=== PATIENT | male | born 1960 | race Caucasian/White ===

== ENCOUNTER → 2020-01-23 10:18 | Outpatient (CLI) | payer OTHER, SELFPAY ==
[2019-12-19 13:56] VITALS: BMI 41.3
[2020-01-23 10:30] LABS: Mucous, Urine 0 SEEN /hpf (<or=2+); Red Blood Cells-Urine 0 SEEN /hpf (0-5); Squamous Epithelial Cells - UA 0 SEEN /hpf (0-5); White Blood Cells 0 SEEN /hpf (0-5)
--- NOTE | 2020-01-23 10:39 | EKG12_ITS ---
Test Reason : ROUTINE Blood Pressure : / mmHG Vent. Rate : 076 BPM Atrial Rate : 076 BPM P-R Int : 158 ms QRS Dur : 096 ms QT Int : 384 ms P-R-T Axes : 061 057 051 degrees QTc Int : 432 ms Normal sinus rhythm Normal ECG Confirmed by AMANDEEP SHIPMAN, MIRI ([id number]), market editor MADHAV VALDOVINOS ([id number]) on 01/24/2020 8:58:38 AM Referred By: Madan Estevez Confirmed By:MIRI BERNSTEIN MD
[2020-01-23 10:49] LABS: Glucose, Dipstick Normal (Normal); Ketone-Dipstick Negative (Negative); Leukocyte Esterase-Dipstick Negative /ul (Negative); Nitrite-Dipstick Negative (Negative); Occult Blood-Urine Negative /ul (Negative); Protein-Dipstick Negative (Negative); Specific Gravity, Urine 1.015 (1.002-1.030); Urine Bilirubin Dipstick Negative (Negative); Urine Urobilinogen Normal (Normal)
[2020-01-23 10:50] LABS: Absolute Neutrophil Count 5.9 X10^3/uL (2.0-7.7); Basophil# 0.03 X10^3/uL; Basophil% 0.3 % (0-1); Color, Urine Straw (Yellow); Eosinophil# 0.28 X10^3/uL; Eosinophils% 2.7 % (0-5); Hematocrit 49.4 % (40-54); Hemoglobin 16.1 g/dL (13.0-16.5); Lymphocyte % 34.4 % (19-41); Mean Corp Hgb Conc 32.6 g/dL (32-36); Mean Corpuscular Hgb 30.9 pg (27.0-32.0); Mean Corpuscular Volume 94.8 fL (80-94); Mean Platelet Vol. 11.3 fl (6.2-12.0); Monocyte# 0.58 X10^3/uL; Monocyte% 5.5 % (0-10); NRBC Flagged by Analyzer 0 % (0-5); Neutrophil # 5.94 X10^3/uL (2.7-7.7); Neutrophil % 56.8 % (47-70); Platelet Count 287 K/mm3 (150-450); RBC Distribution Width CV 11.9 % (11.6-14.6); RBC Distribution Width SD 41.1 fl (35.1-43.9); Red Blood Count 5.21 M/mm3 (4.6-6.2); White Blood Count 10.5 K/mm3 (4.4-11.0)
[2020-01-23 10:51] LABS: Urine Clarity Clear (Clear)
[2020-01-23 10:59] LABS: Bacteria RARE /hpf (None Seen)
[2020-01-23 11:36] LABS: ALB/GLOB Ratio 0.8 RATIO (0.9-2.4); AST(SGOT) 21 U/L (15-37); Alanine Aminotransfer ALT/SGPT 35 U/L (16-61); Albumin, Serum 3.5 g/dL (3.2-5.0); Alkaline Phosphatase 104 U/L (45-117); Anion Gap 3 (5-15); BUN 22 mg/dL (7-18); Calcium,Total 9.5 mg/dL (8.5-10.1); Chloride 103 mmol/L (98-107); Cholesterol 174 mg/dL (200); Creatinine, Serum 1.05 mg/dL (0.70-1.30); EST Glomerular Filtration Rate 77 mL/min (>60); Est Glom Filt Rate - Afr Amer 93 mL/min (>60); Globulin 4.3 g/dL (2.2-4.2); Glucose 92 mg/dL (74-106); High Density Lipoprotein 30 mg/dL; PSA,Total - Annual Screen 0.13 ng/mL (0.00-4.00); Potassium 4.4 mmol/L (3.5-5.1); Protein, Total 7.8 g/dL (6.4-8.2); Sodium Level 134 mmol/L (136-145); Thyroid Stim Hormone (TSH) 0.99 uIU/mL (0.358-3.74); Triglycerides 128 mg/dL; Very Low Density Lipoprotein 26 mg/dL (5-40)
[2020-01-23 11:55] LABS: Hemoglobin A1c 5.3 % (3.8-5.6)
== END ==
PROVIDERS: PCP Nurse Practitioner Family; Referring Provider Nurse Practitioner Family; Visit Provider Nurse Practitioner Family
DX: Z00.00 Encounter for general adult medical examination without abnormal findings (principal); I10 Essential (primary) hypertension
CPT/HCPCS: 36415; 80053; 80061; 81001; 83036; 84153; 84443; 85025; 93005; G0103

== ENCOUNTER → 2020-02-08 08:03 | Outpatient (CLI) | payer OTHER, SELFPAY ==
[2019-12-19 13:56] VITALS: BMI 41.3
--- NOTE | 2020-02-08 14:48 | PFTCOMP_ITS ---
COMPLETE PULMONARY FUNCTION TEST INTERPRETATION Brief HPI: Patient is a 59 year old male, currently under the care of Dr. Meraz, who presents to [facility] for complete pulmonary function tests secondary to diagnosis of dyspnea. Respiratory therapist reports good effort and reproducible results. Interpretation: Forced expiration spirometry shows a mild large airways obstructive ventilatory defect with an FEV1 of 72% predicted. There is no significant bronchodilator response by strict ATS criteria. Spirograms are of good quality and plateau slowly, indicating slowly emptying areas of the lungs. The respiratory flow volume loop shows decreased expiratory flow rates at all lung volumes consistent with airway obstruction. Lung volumes by body plethysmography show a decreased total lung capacity at 5.99 L, 84% predicted. All other lung volumes are reduced symmetrically. Diffusion capacity by carbon monoxide is normal at 82% predicted. The airway resistance is slightly elevated. No previous pulmonary function tests were available for review. Impression: Irreversible mild mixed ventilatory defect with preserved diffusion capacity.
== END ==
PROVIDERS: PCP Internal Medicine; Referring Provider Internal Medicine; Visit Provider Internal Medicine
DX: R06.02 Shortness of breath (principal)
CPT/HCPCS: 94060; 94726; 94729

== ENCOUNTER → 2020-06-09 14:52 | Outpatient (CLI) | payer OTHER, SELFPAY ==
[2019-12-19 13:56] VITALS: BMI 41.3
[2020-06-09 16:49] LABS: ALB/GLOB Ratio 0.9 RATIO (0.9-2.4); AST(SGOT) 16 U/L (15-37); Alanine Aminotransfer ALT/SGPT 32 U/L (16-61); Albumin, Serum 3.7 g/dL (3.2-5.0); Alkaline Phosphatase 98 U/L (45-117); Anion Gap 4 (5-15); BUN 25 mg/dL (7-18); BUN/Creat Ratio 22.7 RATIO (10-20); Calcium,Total 9.7 mg/dL (8.5-10.1); Chloride 105 mmol/L (98-107); EST Glomerular Filtration Rate 73 mL/min (>60); Est Glom Filt Rate - Afr Amer 88 mL/min (>60); Globulin 4.1 g/dL (2.2-4.2); Glucose 90 mg/dL (74-106); Protein, Total 7.8 g/dL (6.4-8.2); Sodium Level 138 mmol/L (136-145)
== END ==
PROVIDERS: PCP Internal Medicine; Visit Provider Internal Medicine
DX: I10 Essential (primary) hypertension (principal)
CPT/HCPCS: 36415; 80053

== ENCOUNTER → 2020-10-07 13:54 | Outpatient (CLI) | payer OTHER, SELFPAY ==
[2020-06-09 14:54] VITALS: BMI 41.3
[2020-10-07 13:34] VITALS: BMI 42.1
--- NOTE | 2020-10-07 13:55 | CT_ITS ---
STUDY: LOW DOSE CT LUNG CANCER SCREENING REASON FOR EXAM: Male, 60 years old. Lung cancer screening -- 84 pack year history; current smoker; asymptomatic RADIATION DOSAGE (If Supplied By Facility): CTDIvol = ( 4.02 ) mGy, DLP = ( 140.94 ) mGycm TECHNIQUE: No contrast was administered. Low dose technique was utilized (average mAS-38 and kVp 120). 1.25 mm axial source images with a slice interval of 1.25-mm were reconstructed in lung windows. 2.5 mm axial source images with a slice interval of 2.5-mm were reconstructed in lung windows. 5.0 mm axial source images with a slice interval of 5.0-mm were reconstructed in soft tissue windows. Nodule measured using lung windows on PACS and/or independent workstation with automated measurement of minimum and maximum diameter. Nodule measurement reported as average diameter rounded to the nearest whole number. Growth is defined as an increase ins size of greater than 1.5 mm. COMPARISON: None. NODULES: No suspicious nodules are seen. Emphysema: Ill-defined area of groundglass appearance in the posterior aspect of the lingular segment of the left upper lobe measuring 2.7 cm x 1.1 cm. This abuts the posterior aspect of the major fissure and most likely represents a focal liver scarring. This also evidence of a focal scar in the anterior aspect of the right middle lobe as seen on axial image #183. Hyperinflation. Endobronchial lesion: None Aorta: Atherosclerotic plaque formation of the aortic arch. Coronary arteries: Coronary artery calcification. Heart: Unremarkable Pulmonary artery: Unremarkable Mediastinal nodes: Small benign-appearing mediastinal lymph nodes. Other chest and abdominal findings: CT/Low Dose CT Lung Screening IMPRESSION: Lung-RADS category 2 - Continue annual screening with LDCT in 12 months. IMPORTANT NOTES FOR USE: ACR Lung-RADS Version 1.1 Assessment Categories Release Date: 2018 Category: Coded 0-4 bases on nodule(s) with highest degree of suspicion. Negative screen is defined as categories 1 and 2; a positive screen is defined as categories 3 and 4. Category 3 and 4A nodules that are unchanged on interval CT should be coded as category 2, and individuals returned to screening in 12 months. Category 4X: Category 3 or 4 nodules with additional imaging findings that increase the suspicion of lung cancer, such as spiculation, GGN that doubles in size in 1 year, enlarged lymph notes, etc. Category Modifiers: S (significant finding unrelated to lung cancer) Electronically Signed: Son Valadez MD at 14:33 EDT , Service support ,
== END ==
PROVIDERS: PCP Internal Medicine; Referring Provider Nurse Practitioner Family; Visit Provider Nurse Practitioner Family
DX: F17.200 Nicotine dependence, unspecified, uncomplicated (principal); Z12.2 Encounter for screening for malignant neoplasm of respiratory organs
CPT/HCPCS: 71271

== ENCOUNTER 2020-12-04 00:55 | Emergency (ER) | payer OTHER, SELFPAY ==
[2020-12-04 00:56] VITALS: BP 151/76; PULSE 77; RESP 22; TEMP 36; O2SAT 95; BMI 45.2
[2020-12-04 01:00] VITALS: BP 136/74; PULSE 73; RESP 22; TEMP 36; O2SAT 95
--- NOTE | 2020-12-04 01:40 | RAD_ITS ---
STUDY: X-RAY CHEST REASON FOR EXAM: Male, 60 years old. Cough TECHNIQUE: Portable, upright, AP chest radiograph COMPARISON: 01/03/2014 FINDINGS: Bilateral lower lung patchy opacities. There is no demonstrated pleural abnormality. Normal size heart. Normal mediastinum and azra. Normal visualized pulmonary arteries. Normal visualized aortic arch and descending thoracic aorta. Normal visualized thoracic spine. Normal visualized ribs, clavicles, and shoulders. There is no demonstrated abnormality of the visualized soft tissue structures of the upper abdomen. RAD/Chest 1 View (Portable) IMPRESSION: Bilateral lower lung infiltrates. Electronically Signed: Nestor Auguste MD at 2:07 EDT Tel , Service support ,
--- NOTE | 2020-12-04 01:41 | EKG12_ITS ---
Test Reason : SOB Blood Pressure : / mmHG Vent. Rate : 070 BPM Atrial Rate : 070 BPM P-R Int : 140 ms QRS Dur : 098 ms QT Int : 418 ms P-R-T Axes : 017 048 048 degrees QTc Int : 451 ms Normal sinus rhythm Normal ECG Confirmed by AMANDEEP SHIPMAN, MIRI ([id number]), metal tile setter MADHAV VALDOVINOS ([id number]) on 12/08/2020 1:08:03 PM Referred By: CLAUDIA Confirmed By:MIRI BERNSTEIN MD
--- NOTE | 2020-12-04 01:42 | ED.VIS.DYS ---
HPI History of Present Illness Chief Complaint: Shortness of Breath Narrative Narrative: 60-year-old male presenting with shortness of breath. Patient states has been short of breath for about 4 days. Patient just recently traveled from [place]. He is unsure if he was exposed to somebody who was ill along the way. Patient also states that somebody at work was sent home due to illness which may have been an exposure for him. He states he has a painful cough. He denies fever, chills, myalgias, change in taste or smell. Patient is a smoker and states he just thought it was bronchitis. He has not vaccinated for COVID-19 and has not had COVID-19 to date. [facility] Medical History COPD (chronic obstructive pulmonary disease) Encounter for screening for malignant neoplasm of lung in current smoker with 30 pack year history or greater History of back injury Hypertension Routine adult health maintenance Tobacco abuse Home Medications naproxen sodium 220 mg tablet 220 mg PO BID PRN 12/19/19 [History Last Taken Unknown] albuterol sulfate 90 mcg/actuation aerosol inhaler 2 puff INHALATION Q6H PRN #18 g 03/19/20 [Rx Last Taken Unknown] lisinopril 20 mg-hydrochlorothiazide 25 mg tablet 1 tab PO DAILY #90 tab 07/14/20 [Rx Last Taken Unknown] prednisone 50 mg PO DAILY 5 Days #25 tab 12/04/20 [Rx Last Taken Unknown] Allergy/AdvReac Type Severity Reaction Status Date / Time No Known Allergies Allergy Verified 10/07/20 13:35 Family History Brother Asthma Hypertension Mother Arthritis Cancer Social History Smoking Status: Current every day smoker tobacco type: cigarettes alcohol intake: current alcohol intake frequency: a few times a month Alcohol type: beer substance use type: does not use what type of physical activity do you participate in: none ROS ROS ED Constitutional Constitutional ED: Denies chills or fever(s) Eyes Eyes: Denies blurry vision or diplopia ENT ENT ED: Denies rhinorrhea or sore throat Cardiovascular Cardiovascular: Reports chest pain; Denies palpitations or racing heartbeat Respiratory/Chest Respiratory/Chest: Reports cough and dyspnea Gastrointestinal Gastrointestinal: Denies abdominal pain, nausea or vomiting Genitourinary Genitourinary ED: Denies dysuria or hematuria Musculoskeletal Musculoskeletal: Denies arthralgias, back pain, myalgias or neck pain Integumentary Denies Abrasions or rash Neurologic Neurologic: Denies headache(s) or paresthesias Psychiatric Psychiatric: Denies anxiety or depression EXAM Physical Exam Const Vital Signs: 12/04/20 00:56 12/04/20 01:00 12/04/20 02:03 Temperature 96.8 F L 96.8 F L Temperature Source Temporal Temporal Pulse Rate 77 73 70 Respiratory Rate 22 H 22 H 17 Respiratory Effort Short of Breath Respiratory Pattern Tachypnea Blood Pressure 151/76 H 136/74 H Blood Pressure Mean 101 94 Pulse Ox 95 95 Oxygen Delivery Method Room Air Room Air 12/04/20 02:29 12/04/20 03:27 12/04/20 04:47 Temperature Temperature Source Pulse Rate 77 75 63 Respiratory Rate 24 H 18 18 Respiratory Effort Respiratory Pattern Blood Pressure 146/68 H 160/87 H Blood Pressure Mean 94 111 Pulse Ox 90 93 Oxygen Delivery Method Room Air Room Air Positive well nourished General Appearance ED: NAD; Negative for pallor HEENT Reports moist mucous membranes atraumatic Eyes PERRL and EOMs intact bilaterally Resp Resp Narrative: Tachypneic with wheezing throughout all lung villagomez. No accessory muscle use. Patient speaking in full sentences. Cardio regular rate and regular rhythm Neuro oriented x3 and CN's II-XII intact bilaterally Sensorium / Orientation: alert Psych mental status grossly normal Thought Process: normal thought process Skin General Skin Exam: Negative for jaundice or pallor Lesions: no lesions Rashes: no rashes MDM MDM MDM Narrative Medical decision making narrative: Patient presenting with painful cough and shortness of breath. He is audibly wheezing on examination. Oxygen saturations were noted to be dropping to about 90. This is on room air. Patient was given breathing treatments and Solu-Medrol. I did test him for COVID-19 and this was negative. EKG on my interpretation shows a normal sinus rhythm with a ventricular rate of 70 bpm without sign of ischemic change. Chest x-ray on my interpretation shows no acute cardiopulmonary process however the radiologist believes there is bibasilar infiltrates. Blood work shows no leukocytosis, hemoglobin hematocrit are stable. Platelets are normal. D-dimer was elevated at 0.69. Troponin is 7. Procalcitonin is negative. Renal function is normal. Potassium slightly low at 3.4. Since his D-dimer was elevated I did obtain a CTA of the chest which shows no acute cardiopulmonary process. Patient was given a second breathing treatment. He will be ambulated on pulse ox to see if his oxygen dropped with ambulation. He currently feels improved after treatments. Patient was ambulated in the hallway and was able to walk briskly up and down the hallway and was asymptomatic. Patient's lowest pulse ox was 92. As soon as he as he sat down his pulse ox was 95%. Patient feels well enough to be discharged home. Patient will be sent home with prednisone burst. He already has albuterol at home. He is counseled to do this every 4-6 hours as needed. He was counseled not to smoke cigarettes and encouraged to quit smoking. Patient will follow up with his primary care provider or return for any new or worsening symptoms. Impression: 1. COPD exacerbation Lab Data Attestation: I reviewed the patient's lab results. Labs: Laboratory Results - last 24 hr 12/04/20 12/04/20 12/04/20 01:58 01:58 01:58 WBC 8.0 RBC 4.60 Hgb 14.7 Hct 43.8 MCV 95.2 H MCH 32.0 MCHC 33.6 RDW Std Deviation 41.3 RDW Coeff of Jerson 11.9 Plt Count 283 MPV 10.5 Immature Gran % (Auto) 0.400 Neut % (Auto) 70.5 H Lymph % (Auto) 21.5 [place] % (Auto) 7.2 Eos % (Auto) 0.1 Baso % (Auto) 0.3 Absolute Neuts (auto) 5.6 Absolute Lymphs (auto) 1.71 Nucleated RBC % 0 D-Dimer Quant (PE/DVT) 0.69 H* Sodium Potassium Chloride Carbon Dioxide Anion Gap BUN Creatinine Estim Creat Clear Calc Est GFR (MDRD) Af Amer Est GFR (MDRD) Non-Af BUN/Creatinine Ratio Glucose Calcium Total Bilirubin AST ALT Alkaline Phosphatase Troponin I High Sens 7 Total Protein Albumin Globulin Albumin/Globulin Ratio Procalcitonin 12/04/20 12/04/20 02:21 02:21 WBC RBC Hgb Hct MCV MCH MCHC RDW Std Deviation RDW Coeff of Jerson Plt Count MPV Immature Gran % (Auto) Neut % (Auto) Lymph % (Auto) [place] % (Auto) Eos % (Auto) Baso % (Auto) Absolute Neuts (auto) Absolute Lymphs (auto) Nucleated RBC % D-Dimer Quant (PE/DVT) Sodium 136 Potassium 3.4 L Chloride 103 Carbon Dioxide 27.0 Anion Gap 6 BUN 16 Creatinine 1.10 Estim Creat Clear Calc 79.36 Est GFR (MDRD) Af Amer 88 Est GFR (MDRD) Non-Af 73 BUN/Creatinine Ratio 14.5 Glucose 109 H Calcium 9.4 Total Bilirubin 0.40 AST 23 ALT 36 Alkaline Phosphatase 96 Troponin I High Sens Total Protein 8.0 Albumin 3.5 Globulin 4.5 H Albumin/Globulin Ratio 0.8 L Procalcitonin 0.05 Radiography Diagnostic Testing: Radiology Impression Chest X-Ray 12/04/20 01:40 IMPRESSION: Bilateral lower lung infiltrates. Electronically Signed: Nestor Auguste MD at 2:07 EDT Tel , Service support , Chest CTA 12/04/20 02:43 IMPRESSION: Normal CTA chest examination, without a demonstrated pulmonary embolism or arterial dissection. Electronically Signed: Nestor Auguste MD at 3:52 EDT Tel , Service support , Discharge Plan Triage Chief Complaint: Shortness of Breath ED Provider: Deshawn Kauffman Dx/Rx/DC Orders Instructions: ED COPD Flare Prescriptions: New prednisone 10 mg tablet 50 mg PO DAILY 5 Days Qty: 25 RF: 0 No Action naproxen sodium [Aleve] 220 mg tablet 220 mg PO BID PRN (Reason: Pain) RF: 0 albuterol sulfate 90 mcg/actuation HFA aerosol inhaler 2 puff INHALATION Q6H PRN (Reason: shortness of breath or wheezing) Qty: 18 RF: 2 lisinopril-hydrochlorothiazide 20-25 mg tablet 1 tab PO DAILY Qty: 90 RF: 3 Primary Care Provider: Leonidas Meraz Referrals: Leonidas Meraz MD [Primary Care Provider] - Disposition Disposition: Home, Self Care
[2020-12-04] MEDS: Albuterol 2.5 MG/3 ML VIAL.NEB. INHALATION ×2 (01:57→03:26)
[2020-12-04] MEDS: Ipratropium/Albuterol Sulfate 3 ML AMPUL.NEB INHALATION (01:57)
[2020-12-04] MEDS: MethylPREDNISolone 125 MG/2 ML Vial IV (02:02)
[2020-12-04 02:03] VITALS: PULSE 70; RESP 17
[2020-12-04 02:03] LABS: Absolute Lymphocyte Count 1.71 X10^3/uL (0.83-4.51); Absolute Neutrophil Count 5.6 X10^3/uL (2.0-7.7); Basophil# 0.02 X10^3/uL; Basophil% 0.3 % (0-1); Eosinophil# 0.01 X10^3/uL; Eosinophils% 0.1 % (0-5); Hematocrit 43.8 % (40-54); Hemoglobin 14.7 g/dL (13.0-16.5); Lymphocyte # 1.71 X10^3/ul (0.83-4.51); Lymphocyte % 21.5 % (19-41); Mean Corp Hgb Conc 33.6 g/dL (32-36); Mean Corpuscular Volume 95.2 fL (80-94); Mean Platelet Vol. 10.5 fl (6.2-12.0); Monocyte# 0.57 X10^3/uL; Monocyte% 7.2 % (0-10); NRBC Flagged by Analyzer 0 % (0-5); Neutrophil # 5.63 X10^3/uL (2.7-7.7); Neutrophil % 70.5 % (47-70); Platelet Count 283 K/mm3 (150-450); RBC Distribution Width CV 11.9 % (11.6-14.6); RBC Distribution Width SD 41.3 fl (35.1-43.9)
[2020-12-04 02:27] LABS: Troponin-I HS 7 pg/mL (3.0-78.0)
[2020-12-04 02:28] LABS: D-Dimer Quantitative (DVT/PE) 0.69 FEU/ug/m (0.27-0.49)
[2020-12-04 02:29] VITALS: BP 146/68; PULSE 77; RESP 24; O2SAT 90
--- NOTE | 2020-12-04 02:43 | CT_ITS ---
STUDY: CTA CHEST REASON FOR EXAM: Male, 60 years old. Dyspnea RADIATION DOSAGE (If Supplied By Facility): CTDIvol = ( 22.17 ) mGy, DLP = ( 560.83 ) mGycm TECHNIQUE: The examination was performed with the intravenous administration of IV 100mL Isovue-370. Post-processing of the angiographic images was performed, with multiplanar reformation and 3D reconstruction. Individualized dose optimization techniques were used for this CT. COMPARISON: None. FINDINGS: Normal enhancement of the main pulmonary artery and right and left pulmonary arteries. Normal enhancement of the bilateral peripheral pulmonary arteries. There is no demonstrated pulmonary embolism. Normal thoracic aorta and visualized great vessels. There is no demonstrated aortic dissection. Normal heart and pericardium. Normal mediastinum. Normal hilar regions. Normal visualized trachea and bronchi. The lungs are well expanded. Normal pulmonary parenchyma. Normal pleura. Normal chest wall structures. There are degenerative changes of thoracic spine. Normal visualized upper abdomen. CT/CTA Chest W/WO Contrast IMPRESSION: Normal CTA chest examination, without a demonstrated pulmonary embolism or arterial dissection. Electronically Signed: Nestor Auguste MD at 3:52 EDT Tel , Service support ,
[2020-12-04 02:52] LABS: ALB/GLOB Ratio 0.8 RATIO (0.9-2.4); AST(SGOT) 23 U/L (15-37); Alanine Aminotransfer ALT/SGPT 36 U/L (16-61); Albumin, Serum 3.5 g/dL (3.2-5.0); Alkaline Phosphatase 96 U/L (45-117); Anion Gap 6 (5-15); BUN 16 mg/dL (7-18); BUN/Creat Ratio 14.5 RATIO (10-20); Calcium,Total 9.4 mg/dL (8.5-10.1); Chloride 103 mmol/L (98-107); EST Glomerular Filtration Rate 73 mL/min (>60); Est Glom Filt Rate - Afr Amer 88 mL/min (>60); Estimated Creatinine Clearance 79.36 ml/min; Globulin 4.5 g/dL (2.2-4.2); Glucose 109 mg/dL (74-106); Potassium 3.4 mmol/L (3.5-5.1); Sodium Level 136 mmol/L (136-145)
[2020-12-04 02:59] LABS: Procalcitonin 0.05 ng/mL (0.00-0.09)
[2020-12-04 03:27] VITALS: PULSE 75; RESP 18
[2020-12-04 04:47] VITALS: BP 160/87; PULSE 63; RESP 18; O2SAT 93; O2SAT 94
== END 2020-12-04 04:53 | disposition home or self-care (01) ==
PROVIDERS: Emergency Provider Student in an Organized Health Care Education/Training Program; PCP Internal Medicine
DX: J44.1 Chronic obstructive pulmonary disease with (acute) exacerbation (principal); F17.210 Nicotine dependence, cigarettes, uncomplicated; I10 Essential (primary) hypertension; Z79.52 Long term (current) use of systemic steroids
CPT/HCPCS: 71045; 71275; 80053; 84145; 84484; 85025; 85379; 87426; 93005; 94640; 96374; 99284; Q9967; A4216

== ENCOUNTER 2021-04-28 14:56 | Outpatient (CLI) | payer OTHER, SELFPAY | END 2021-04-28 23:59 | disposition short-term general hospital (02) | LOC: LABSPEC 14:56 | PROVIDERS: PCP Internal Medicine; Referring Provider Internal Medicine; Visit Provider Internal Medicine | DX: J44.9 Chronic obstructive pulmonary disease, unspecified (principal); Z20.822 Contact with and (suspected) exposure to COVID-19 | CPT/HCPCS: 87635; U0003; U0005 ==

== ENCOUNTER 2021-05-29 13:37 | Outpatient (CLI) | payer OTHER, SELFPAY ==
--- NOTE | 2021-05-29 14:05 | RAD_ITS ---
STUDY: XR Knee Complete 4 Views or More 05/29/2021 4:49 PM REASON FOR EXAM: Male, 61 years old. PAIN TECHNIQUE: XR Knee Complete 4 Views or More LEFT COMPARISON: None FINDINGS: Normal visualized distal femur. Normal visualized proximal tibia and fibula. Normal proximal tibiofibular articulation. There is severe degenerative arthrosis of the medial femorotibial compartment with severe joint space narrowing. Normal lateral femorotibial compartment. There is moderate degenerative arthrosis of the patellofemoral articulation. There is a soft tissue prominence in the suprapatellar region suggesting a small volume joint effusion. The soft tissue structures are unremarkable. RAD/Knee 4 or More Views IMPRESSION: Degenerative arthrosis. There is a soft tissue prominence in the suprapatellar region suggesting a small volume joint effusion. Electronically Signed: Mahin Borja MD at 16:50 EST ,
--- NOTE | 2021-05-29 14:07 | RAD_ITS ---
STUDY: XR Knee Complete 4 Views or More 05/29/2021 4:49 PM REASON FOR EXAM: Male, 61 years old. PAIN TECHNIQUE: XR Knee Complete 4 Views or More right COMPARISON: None FINDINGS: Normal visualized distal femur. Normal visualized proximal tibia and fibula. Normal proximal tibiofibular articulation. There is severe degenerative arthrosis of the medial femorotibial compartment with severe joint space narrowing. Normal lateral femorotibial compartment. There is moderate degenerative arthrosis of the patellofemoral articulation. There is a soft tissue prominence in the suprapatellar region suggesting a small volume joint effusion. The soft tissue structures are unremarkable. RAD/Knee 4 or More Views IMPRESSION: Degenerative arthrosis. There is a soft tissue prominence in the suprapatellar region suggesting a small volume joint effusion. Electronically Signed: Mahin Borja MD at 16:50 EST ,
[2021-05-29 14:52] LABS: Erythrocyte Sedimentation Rate 52 mm/hr (0-20)
[2021-05-29 14:54] LABS: Absolute Lymphocyte Count 1.52 X10^3/uL (0.83-4.51); Absolute Neutrophil Count 7.6 X10^3/uL (2.0-7.7); Basophil# 0.02 X10^3/uL; Basophil% 0.2 % (0-1); Hematocrit 44.9 % (40-54); Hemoglobin 14.9 g/dL (13.0-16.5); Lymphocyte # 1.52 X10^3/ul (0.83-4.51); Lymphocyte % 16.3 % (19-41); Mean Corp Hgb Conc 33.2 g/dL (32-36); Mean Corpuscular Hgb 31.7 pg (27.0-32.0); Mean Corpuscular Volume 95.5 fL (80-94); Mean Platelet Vol. 11.5 fl (6.2-12.0); Monocyte% 1.1 % (0-10); NRBC Flagged by Analyzer 0 % (0-5); Neutrophil # 7.63 X10^3/uL (2.7-7.7); Neutrophil % 81.9 % (47-70); Platelet Count 334 K/mm3 (150-450); RBC Distribution Width CV 12.9 % (11.6-14.6); RBC Distribution Width SD 45.1 fl (35.1-43.9); White Blood Count 9.3 K/mm3 (4.4-11.0)
[2021-05-29 15:03] LABS: ALB/GLOB Ratio 0.8 RATIO (0.9-2.4); AST(SGOT) 20 U/L (15-37); Alanine Aminotransfer ALT/SGPT 41 U/L (16-61); Albumin, Serum 3.6 g/dL (3.2-5.0); Alkaline Phosphatase 96 U/L (45-117); Anion Gap 4 (5-15); BUN 24 mg/dL (7-18); BUN/Creat Ratio 21.2 RATIO (10-20); CRP 6.07 mg/L (0.0-3.0); Calcium,Total 10.3 mg/dL (8.5-10.1); Chloride 106 mmol/L (98-107); Creatinine, Serum 1.13 mg/dL (0.70-1.30); EST Glomerular Filtration Rate 70 mL/min (>60); Est Glom Filt Rate - Afr Amer 85 mL/min (>60); Globulin 4.4 g/dL (2.2-4.2); Glucose 115 mg/dL (74-106); Potassium 4.1 mmol/L (3.5-5.1); Rheumatoid Factor < 10.0 IU/mL (<15); Sodium Level 136 mmol/L (136-145); Uric Acid 5.8 mg/dL (3.5-7.2)
[2021-06-01 18:58] LABS: ANTINUCLEAR ANTIBODIES DIRECT Negative (Negative)
== END 2021-05-29 23:59 | disposition home or self-care (01) ==
PROVIDERS: Nurse Practitioner Family; PCP Internal Medicine; Referring Provider Internal Medicine; Visit Provider Internal Medicine
DX: M25.561 Pain in right knee (principal); M25.562 Pain in left knee; M25.50 Pain in unspecified joint
CPT/HCPCS: 36415; 73564; 80053; 84550; 85025; 85652; 86038; 86140; 86225; 86235; 86431

== ENCOUNTER 2021-06-17 07:45 | Outpatient (RCR) | payer OTHER, SELFPAY ==
--- NOTE | 2021-06-17 09:51 | HP.PTEVAL ---
Patient's Visit Information MELE HERNANDEZ is a 61 year old M referred to Physical Therapy by LOTTIE Bravo with a diagnosis of Bilateral Knee OA. Date of Evaluation: 06/17/21 Physical Therapist: Liz Ruelas DPT - Visit Plan Frequency: 1x/Week Duration: 1 Week Plan: 1x visit for home exercise program. HEP Given IE: Quad set, SLR, hamstring stretch seated, sit to stand, standing gastroc stretch, TKE - Subjective Patient reports that the insides on both knees are touching. Left knee injection 12 years ago and has not had any problems since then. He took an inhaler for COPD and then he could not walk- they said side effect of the inhaler should clear up after 7-10 days. The steroid dose pack which helped a little. He is now taking a anti-inflam. 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 Is using crutches when he goes out but not when he is at home. Does have to take breaks when he stands on his knees. Instantly the pain goes away when he sits down. Agg: putting weight on them. They didn't think injections would help due to bone on bone. 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 He was told total knees are a possibility. He wants to do a few visits and get a home exercise program. Worst: 8/10 the left one hurts then he favors it then the right one fires up. Best: 0/10 Eases: sitting down. Pain is located along the medial knee. No radiating pain. Describes the pain as just hurts. He does have cracking, clicking and gives out under him. He uses the crutches to go up/down the stairs- no stairs inside his home. No N/T in the toes. Has not had any falls. Sleep: not disturbed PMHx/Meds: see chart. - Objective Posture: FH, RS- can correct but does not maintain. Gait: axillary crutches bilaterally- crouched gait pattern as he does not gain full extension in stance phase. Wide SORAYA. HR/TR: able with pain. SLS: unable- only weight shift due to pain and fear of giving out. ROM: Right: 0-115 degrees no pain Left: 10-115 degrees pain with end range extension. Can obtain full extension in standing bilaterally. Strength: Ankle: 5/5, Knee: 5/5 Hip: 4+/5, Core: fair. Flex: HS: mild, Gastroc: mild - Balance/Special Test Scores Lower Extremity Functional Score: 20 - Goals Goal 1:: Patient will be I with HEP and progression Goal Time Frame: 4-6 Weeks - Rehabilitation Potential Physical Therapy Diagnosis: Patient presents with hypomobility- he has decreased LE and core strength/stabilization, flex and muscular endurance leading to abnormal gait and increased pain with ADL's Rehabilitation Potential: Fair - Anticipated Interventions Patient/Client Instruction: Educate patient on: Benefits of Fitness Program Therapeutic Exercise to Include: Strength training, Endurance training, Balance training, Coordination, Agility training, Body mechanics, Postural training, Flexibilty training, Gait and locomotor training, Dynamic Lumbar Stabilization, Scapular Strength/Stabilization Thank you for the opportunity to evaluate your patient. For Medicare and Medicare HMO plans, please review the plan of care and approve it. It will need to be FAXED BACK to us at [phone] for Medicare purposes. For Medicare only, by signing this I certify the plan of care. Please let me know if there are questions or concerns regarding this plan of care. Physician Signature: Date:
--- NOTE | 2021-09-09 10:32 | HP.PT.NRP ---
MELE HERNANDEZ was seen in my office for initial evaluation on 06/17/21. The following Plan of Care was established for this patient: Initial Frequency: 1x/Week Initial Duration: 1 Week Patient/Client Instruction: Educate patient on: Benefits of Fitness Program Therapeutic Exercise to Include: Strength training, Endurance training, Balance training, Coordination, Agility training, Body mechanics, Postural training, Flexibilty training, Gait and locomotor training, Dynamic Lumbar Stabilization, Scapular Strength/Stabilization This patient was last seen in our office . Pertinent comments regarding their Physical therapy will appear below: Patient attended PT for HEP- given and appropriate for d/c At this point I will be discontinuing this patient from physical therapy. I would be happy to see this patient again in the future if found appropriate by the physician. Thank you! Liz Ruelas DPT Balance/Gait/Functional tests - Balance/Special Test Scores Lower Extremity Functional Score: 20
== END 2021-06-17 19:00 | disposition home or self-care (01) ==
LOC: PT 07:45
PROVIDERS: PCP Internal Medicine
DX: M17.0 Bilateral primary osteoarthritis of knee (principal)
CPT/HCPCS: 97110; 97162

== ENCOUNTER → 2022-01-05 | Outpatient (CLI) | payer OTHER, SELFPAY ==
--- NOTE | 2022-01-05 12:59 | CT_ITS ---
STUDY: LOW DOSE CT LUNG CANCER SCREENING REASON FOR EXAM: Male, 61 years old. SMOKER FOR 40YRS X 1 1/2 PPD, HTN RADIATION DOSAGE (If Supplied By Facility): CTDIvol = ( 3.18 ) mGy, DLP = ( 111.19 ) mGycm TECHNIQUE: No contrast was administered. Low dose technique was utilized (average mAS-38 and kVp 120). 1.25 mm axial source images with a slice interval of 1.25-mm were reconstructed in lung windows. 2.5 mm axial source images with a slice interval of 2.5-mm were reconstructed in lung windows. 5.0 mm axial source images with a slice interval of 5.0-mm were reconstructed in soft tissue windows. COMPARISON: Comparison is made with prior study dated 10/07/2020. NODULES: No suspicious nodules are seen. Emphysema: The previously seen area of groundglass appearance in the posterior aspect of the lingular segment of the left upper lobe has almost completely resolved. Minimal residual changes persist. Mild residual scarring persists in the anterior lateral aspect of the right lower lung. Minimal residual scarring in the anterior aspect of the right middle lobe. Endobronchial lesion: None Aorta: Atherosclerotic plaque formation at the level of the aortic arch. CORONARY ARTERIES: Coronary artery calcification is seen. Heart: Unremarkable Pulmonary artery: Unremarkable Mediastinal nodes: Small benign-appearing mediastinal lymph nodes. Other chest and abdominal findings: CT/Low Dose CT Lung Screening IMPRESSION: Lung-RADS category 2 - Continue annual screening with LDCT in 12 months. IMPORTANT NOTES FOR USE: ACR Lung-RADS Version 1.1 Assessment Categories Release Date: 2018 Category: Coded 0-4 bases on nodule(s) with highest degree of suspicion. Negative screen is defined as categories 1 and 2; a positive screen is defined as categories 3 and 4. Category 3 and 4A nodules that are unchanged on interval CT should be coded as category 2, and individuals returned to screening in 12 months. Category 4X: Category 3 or 4 nodules with additional imaging findings that increase the suspicion of lung cancer, such as spiculation, GGN that doubles in size in 1 year, enlarged lymph notes, etc. Category Modifiers: S (significant finding unrelated to lung cancer) Electronically Signed: Son Valadez MD at 13:51 EDT ,
== END | disposition home or self-care (01) ==
LOC: CT 12:58
PROVIDERS: PCP Internal Medicine; Referring Provider Nurse Practitioner Family; Visit Provider Nurse Practitioner Family
DX: Z12.2 Encounter for screening for malignant neoplasm of respiratory organs (principal); Z87.891 Personal history of nicotine dependence
CPT/HCPCS: 71271

== ENCOUNTER → 2022-04-16 | Outpatient (CLI) | payer OTHER, SELFPAY ==
[2022-04-16 12:31] LABS: Absolute Lymphocyte Count 3.12 X10^3/uL (0.83-4.51); Absolute Neutrophil Count 4.9 X10^3/uL (2.0-7.7); Basophil# 0.04 X10^3/uL; Basophil% 0.5 % (0-1); Eosinophil# 0.26 X10^3/uL; Hematocrit 48.7 % (40-54); Hemoglobin 16.4 g/dL (13.0-16.5); Lymphocyte # 3.12 X10^3/ul (0.83-4.51); Lymphocyte % 35.5 % (19-41); Mean Corp Hgb Conc 33.7 g/dL (32-36); Mean Corpuscular Hgb 32.2 pg (27.0-32.0); Mean Corpuscular Volume 95.5 fL (80-94); Mean Platelet Vol. 11.6 fl (6.2-12.0); Monocyte# 0.45 X10^3/uL; Monocyte% 5.1 % (0-10); NRBC Flagged by Analyzer 0 % (0-5); Neutrophil % 55.7 % (47-70); Platelet Count 263 K/mm3 (150-450); RBC Distribution Width CV 12.5 % (11.6-14.6); RBC Distribution Width SD 44.1 fl (35.1-43.9); White Blood Count 8.8 K/mm3 (4.4-11.0)
[2022-04-16 13:09] LABS: ALB/GLOB Ratio 0.9 RATIO (0.9-2.4); AST(SGOT) 15 U/L (15-37); Alanine Aminotransfer ALT/SGPT 32 U/L (16-61); Albumin, Serum 3.5 g/dL (3.2-5.0); Alkaline Phosphatase 99 U/L (45-117); Anion Gap 7 (5-15); BUN 12 mg/dL (7-18); BUN/Creat Ratio 11.2 RATIO (10-20); Calcium,Total 9.2 mg/dL (8.5-10.1); Chloride 106 mmol/L (98-107); Cholesterol 177 mg/dL (200); Creatinine, Serum 1.07 mg/dL (0.70-1.30); EST Glomerular Filtration Rate 75 mL/min (>60); Est Glom Filt Rate - Afr Amer 90 mL/min (>60); Glucose 95 mg/dL (74-106); High Density Lipoprotein 30 mg/dL; PSA,Total - Annual Screen 0.16 ng/mL (0.00-4.00); Potassium 4.1 mmol/L (3.5-5.1); Protein, Total 7.5 g/dL (6.4-8.2); Sodium Level 139 mmol/L (136-145); Triglycerides 122 mg/dL; Very Low Density Lipoprotein 24 mg/dL (5-40)
== END | disposition home or self-care (01) ==
LOC: BIMLAB 09:53
PROVIDERS: PCP Internal Medicine; Referring Provider Internal Medicine; Visit Provider Internal Medicine
DX: I10 Essential (primary) hypertension (principal); N40.0 Benign prostatic hyperplasia without lower urinary tract symptoms
CPT/HCPCS: 36415; 80053; 80061; 84153; 85025; G0103

== ENCOUNTER → 2022-10-08 | Outpatient (CLI) | payer OTHER, SELFPAY ==
[2022-10-08 17:04] LABS: Anion Gap 3 (5-15); BUN 15 mg/dL (7-18); BUN/Creat Ratio 14.6 RATIO (10-20); Calcium,Total 9.5 mg/dL (8.5-10.1); Chloride 109 mmol/L (98-107); Creatinine, Serum 1.03 mg/dL (0.70-1.30); EST Glomerular Filtration Rate 78 mL/min (>60); Est Glom Filt Rate - Afr Amer 94 mL/min (>60); Glucose 88 mg/dL (74-106); Sodium Level 142 mmol/L (136-145)
== END | disposition home or self-care (01) ==
LOC: BIMLAB 15:12
PROVIDERS: PCP Internal Medicine; Referring Provider Internal Medicine; Visit Provider Internal Medicine
DX: I10 Essential (primary) hypertension (principal)
CPT/HCPCS: 36415; 80048

== ENCOUNTER → 2023-01-14 | Outpatient (CLI) | payer OTHER, SELFPAY ==
[2023-01-14 16:19] LABS: Absolute Lymphocyte Count 3.43 X10^3/uL (0.83-4.51); Absolute Neutrophil Count 5.7 X10^3/uL (2.0-7.7); Basophil# 0.05 X10^3/uL; Basophil% 0.5 % (0-1); Eosinophil# 0.31 X10^3/uL; Eosinophils% 3.1 % (0-5); Hemoglobin 16.8 g/dL (13.0-16.5); Lymphocyte # 3.43 X10^3/ul (0.83-4.51); Mean Corp Hgb Conc 32.9 g/dL (32-36); Mean Corpuscular Hgb 31.8 pg (27.0-32.0); Mean Corpuscular Volume 96.4 fL (80-94); Mean Platelet Vol. 11.3 fl (6.2-12.0); Monocyte# 0.54 X10^3/uL; Monocyte% 5.4 % (0-10); NRBC Flagged by Analyzer 0 % (0-5); Neutrophil # 5.73 X10^3/uL (2.7-7.7); Neutrophil % 56.7 % (47-70); Platelet Count 258 K/mm3 (150-450); RBC Distribution Width CV 12.2 % (11.6-14.6); RBC Distribution Width SD 43.5 fl (35.1-43.9); Red Blood Count 5.29 M/mm3 (4.6-6.2); White Blood Count 10.1 K/mm3 (4.4-11.0)
[2023-01-14 17:10] LABS: ALB/GLOB Ratio 0.8 RATIO (0.9-2.4); AST(SGOT) 14 U/L (15-37); Alanine Aminotransfer ALT/SGPT 29 U/L (16-61); Albumin, Serum 3.3 g/dL (3.2-5.0); Alkaline Phosphatase 109 U/L (45-117); Anion Gap 7 (5-15); BUN 14 mg/dL (7-18); BUN/Creat Ratio 15.9 RATIO (10-20); Calcium,Total 9.1 mg/dL (8.5-10.1); Chloride 108 mmol/L (98-107); Creatinine, Serum 0.88 mg/dL (0.70-1.30); EST Glomerular Filtration Rate 93 mL/min (>60); Est Glom Filt Rate - Afr Amer 113 mL/min (>60); Globulin 4.3 g/dL (2.2-4.2); Glucose 99 mg/dL (74-106); Protein, Total 7.6 g/dL (6.4-8.2); Sodium Level 138 mmol/L (136-145); T4 Free Direct 1.09 ng/dL (0.76-1.46); Thyroid Stim Hormone (TSH) 1.13 uIU/mL (0.358-3.74)
== END | disposition home or self-care (01) ==
LOC: BIMLAB 15:29
PROVIDERS: PCP Internal Medicine; Referring Provider Internal Medicine; Visit Provider Internal Medicine
DX: I48.91 Unspecified atrial fibrillation (principal)
CPT/HCPCS: 36415; 80053; 84439; 84443; 85025

== ENCOUNTER → 2023-02-01 | Outpatient (CLI) | payer OTHER, SELFPAY ==
--- NOTE | 2023-02-01 14:13 | CT_ITS ---
STUDY: LOW DOSE CT LUNG CANCER SCREENING REASON FOR EXAM: Male, 62 years old. Lung cancer screening -- and gt;20 pk yr hx; current smoker; asymptomatic RADIATION DOSAGE (If Supplied By Facility): CTDIvol = ( 3.18 ) mGy, DLP = ( 108.81 ) mGycm TECHNIQUE: No contrast was administered. Low dose technique was utilized (average mAS-38 and kVp 120). 1.25 mm axial source images with a slice interval of 1.25-mm were reconstructed in lung windows. 2.5 mm axial source images with a slice interval of 2.5-mm were reconstructed in lung windows. 5.0 mm axial source images with a slice interval of 5.0-mm were reconstructed in soft tissue windows. COMPARISON: Comparison is made with prior study January 05, 2022. NODULES: No suspicious nodules are seen. Emphysema: Minimal emphysematous changes. Endobronchial lesion: None Aorta: Atherosclerotic plaque formation of the aortic arch. CORONARY ARTERIES: Coronary artery calcification is seen. Heart: Unremarkable Pulmonary artery: Unremarkable Mediastinal nodes: Small benign-appearing mediastinal lymph nodes. Other chest and abdominal findings: CT/Low Dose CT Lung Screening IMPRESSION: Lung-RADS category 2 - Continue annual screening with LDCT in 12 months. IMPORTANT NOTES FOR USE: ACR Lung-RADS Version 1.1 Assessment Categories Release Date: 2018 Category: Coded 0-4 bases on nodule(s) with highest degree of suspicion. Negative screen is defined as categories 1 and 2; a positive screen is defined as categories 3 and 4. Category 3 and 4A nodules that are unchanged on interval CT should be coded as category 2, and individuals returned to screening in 12 months. Category 4X: Category 3 or 4 nodules with additional imaging findings that increase the suspicion of lung cancer, such as spiculation, GGN that doubles in size in 1 year, enlarged lymph notes, etc. Category Modifiers: S (significant finding unrelated to lung cancer) Electronically Signed: Son Valadez MD at 14:52 EST ,
== END | disposition home or self-care (01) ==
LOC: CT 14:12
PROVIDERS: PCP Internal Medicine; Referring Provider Nurse Practitioner Family; Visit Provider Nurse Practitioner Family
DX: Z87.891 Personal history of nicotine dependence (principal); Z12.2 Encounter for screening for malignant neoplasm of respiratory organs
CPT/HCPCS: 71271

== ENCOUNTER → 2023-02-18 | Outpatient (CLI) | payer OTHER, SELFPAY ==
--- NOTE | 2023-02-18 12:56 | ECHOCS_ITS ---
Reason For Study: Afib Procedure This was a 2D Doppler, Color Flow transthoracic echocardiogram. The study was technically difficult. Contrast injection was performed. Exam performed in department. Left Ventricle Normal LV size. Left ventricular systolic function is normal. The estimated ejection fraction is 60 %. No regional wall motion abnormalities noted. Right Ventricle Normal RV size. Normal systolic function. Atria Normal left atrium. Normal right atrium. Mitral Valve Normal mitral valve. Tricuspid Valve Normal tricuspid valve. Aortic Valve Normal aortic valve. Pulmonic Valve The pulmonic valve is not well visualized. Great Vessels Normal aortic root. The pulmonary artery is normal size. Normal inferior vena cava. Pericardium/Pleural No pericardial effusion. Medication 22 gauge I.V. with prn adaptor inserted into right arm. Diluted definity 2ml given slow IV push to enhance endocardial definition. MMode/2D Measurements & Calculations Ao root diam: 3.8 cm LAV(MOD-bp): 44.8 ml LA A4 area: 17.8 cm2 LAV(MOD-bp) Indexed: 17.4 ml/m2 LAV(MOD-sp2): 48.0 ml LAV(MOD-sp4): 40.0 ml TAPSE: 1.5 cm RA A4 area: 22.5 cm2 Doppler Measurements & Calculations MV E max alysia: 89.4 cm/sec MV V2 max: 95.8 cm/sec Ao V2 max: 120.3 cm/sec MV max P.7 mmHg Ao max P.8 mmHg MV V2 mean: 54.3 cm/sec Ao V2 mean: 89.5 cm/sec MV mean P.4 mmHg Ao mean P.5 mmHg MV V2 VTI: 24.0 cm Ao V2 VTI: 20.1 cm LV V1 max: 106.1 cm/sec PA V2 max: 99.7 cm/sec LV V1 max P.6 mmHg ECHO/Echo Complete W/ Contrast Interpretation Summary Normal LV size. Left ventricular systolic function is normal. The estimated ejection fraction is 60 %. Contrast injection was performed. Ordering Physician: Leonidas Meraz Referring Physician: Leonidas Meraz Performed By: Dewayne Ragsdale RCS
== END | disposition home or self-care (01) ==
LOC: CVS 12:54
PROVIDERS: PCP Internal Medicine; Referring Provider Internal Medicine; Visit Provider Internal Medicine
DX: I48.91 Unspecified atrial fibrillation (principal)
CPT/HCPCS: 93306; Q9957; A4216; C8929

== ENCOUNTER → 2023-04-22 | Outpatient (CLI) | payer OTHER, SELFPAY ==
--- OUTSIDE RECORDS SUMMARY | 2023-04-22 16:23 | XMS RPT_ITS | CCD ---
Author Name Unknown Address [address] [place] [address] Organization [facility] Results Test Name Value Interpretation Reference Range Facil ity Summary Purpose Family History No Family History Records Found Advance Directives No Advanced Directives Records Found Additional Source Comments (unrecognized sect ion and content) No Status Records Found INFORMATION SOURCE (unrecogn ized section and content) FOR RECORDS PERTAINING TO PATIENTS WHO ARE OR HAVE BEEN ENROLLED IN A CHEMICAL DEPENDENCY/SUBSTANCEABUSE PROGRAM, SOME INFORMATION MAY BE OMITTED. This clinical summary was aggregated from multiple sources. Caution should be exercised in using it in the provision of clinical care. This summary normalizes information from multiple sources, and as a consequence, information in this document may materially change the coding, format and clinical context of patient data. In addition, data may be omitted in some cases. CLINICAL DECISIONS SHOULD BE BASED ON THE PRIMARY CLINICAL RECORDS. [employer] provides no warranty or guarantee of the accuracy or completeness of information in this document.
[2023-04-22 16:43] LABS: Absolute Lymphocyte Count 3.52 X10^3/uL (0.83-4.51); Absolute Neutrophil Count 6.3 X10^3/uL (2.0-7.7); Basophil# 0.06 X10^3/uL; Basophil% 0.6 % (0-1); Eosinophil# 0.28 X10^3/uL; Eosinophils% 2.6 % (0-5); Hematocrit 49.6 % (40-54); Hemoglobin 16.2 g/dL (13.0-16.5); Lymphocyte # 3.52 X10^3/ul (0.83-4.51); Mean Corp Hgb Conc 32.7 g/dL (32-36); Mean Corpuscular Hgb 31.2 pg (27.0-32.0); Mean Corpuscular Volume 95.6 fL (80-94); Mean Platelet Vol. 11.6 fl (6.2-12.0); Monocyte# 0.45 X10^3/uL; Monocyte% 4.2 % (0-10); NRBC Flagged by Analyzer 0 % (0-5); Neutrophil # 6.32 X10^3/uL (2.7-7.7); Neutrophil % 59.2 % (47-70); Platelet Count 267 K/mm3 (150-450); RBC Distribution Width CV 12.5 % (11.6-14.6); RBC Distribution Width SD 44.1 fl (35.1-43.9); Red Blood Count 5.19 M/mm3 (4.6-6.2); White Blood Count 10.7 K/mm3 (4.4-11.0)
[2023-04-22 17:07] LABS: Anion Gap 4 (5-15); BUN 20 mg/dL (7-18); BUN/Creat Ratio 17.4 RATIO (10-20); Calcium,Total 9.6 mg/dL (8.5-10.1); Chloride 106 mmol/L (98-107); Creatinine, Serum 1.15 mg/dL (0.70-1.30); EST Glomerular Filtration Rate 69 mL/min (>60); Est Glom Filt Rate - Afr Amer 83 mL/min (>60); Glucose 95 mg/dL (74-106); Sodium Level 138 mmol/L (136-145)
== END | disposition home or self-care (01) ==
LOC: BIMLAB 15:51
PROVIDERS: PCP Internal Medicine; Referring Provider Internal Medicine; Visit Provider Internal Medicine
DX: I48.91 Unspecified atrial fibrillation (principal); I10 Essential (primary) hypertension
CPT/HCPCS: 36415; 80048; 85025

== ENCOUNTER → 2023-06-17 | Outpatient (CLI) | payer OTHER, SELFPAY ==
--- NOTE | 2023-06-17 15:32 | STRESSREP ---
Stress Test Report Pharmacologic myocardial perfusion stress test. 63-year-old male with a history of atrial fibrillation Resting EKG demonstrates atrial fibrillation with a rate of 107 bpm. Resting blood pressure is 130/72 mmHg. 0.4 mg of regadenoson was infused per usual protocol followed by rapid intravenous saline flush injection. Continuous EKG monitoring was performed. The maximum heart rate was 148 bpm which was 93% of max impacted heart rate the maximum workload was 1 metabolic equivalent. At rest there were no ST or T wave changes noted to suggest ischemia and at peak infusion nonspecific ST changes were noted which did not meet the criteria for ischemia. No clinical angina is noted. The final blood pressure was 122/70 mmHg. Myocardial perfusion protocol. 14.9 mCi of technetium 99m sestamibi was injected at rest. 0.4 mg of regadenoson was infused per usual protocol. At peak infusion 44.8 mCi of technetium 99m sestamibi was injected stress images were obtained stress and rest images were reconstructed and compared in the short axis vertical long and horizontal long axis. Gated images were also obtained. Perfusion SPECT analysis: Review of the stress images demonstrate normal uptake of tracer noted in all areas of the myocardium. The resting images similar demonstrated normal uptake of tracer noted in all areas of the myocardium. No areas of reversibility are noted to suggest ischemia and no previous infarct is noted. Gated SPECT analysis: The gated ejection fraction is 25%. Conclusion: Normal pharmacologic myocardial perfusion stress test. Reduced ejection fraction. Atrial fibrillation noted
== END | disposition home or self-care (01) ==
LOC: CVS 05:59
PROVIDERS: PCP Internal Medicine; Referring Provider Internal Medicine Cardiovascular Disease; Visit Provider Internal Medicine Cardiovascular Disease
DX: R06.09 Other forms of dyspnea (principal); I48.91 Unspecified atrial fibrillation; I25.10 Atherosclerotic heart disease of native coronary artery without angina pectoris; I25.84 Coronary atherosclerosis due to calcified coronary lesion
CPT/HCPCS: 78452; 93017; A9500; A4216; J2785

== ENCOUNTER 2023-06-25 18:03 | Inpatient (IN) | payer OTHER, SELFPAY ==
[2023-06-25] VITALS (12 sets, daily range): BP systolic 102–151; BP diastolic 72–128; PULSE 80–154; RESP 20–35; TEMP 36.3–36.9; O2SAT 87–95; BMI 39.6; BMI 37.9
--- NOTE | 2023-06-25 18:32 | EKG12_ITS ---
Test Reason : SOB Blood Pressure : / mmHG Vent. Rate : 147 BPM Atrial Rate : 000 BPM P-R Int : 000 ms QRS Dur : 082 ms QT Int : 320 ms P-R-T Axes : 000 032 043 degrees QTc Int : 500 ms Critical Test Result: High HR Atrial fibrillation with rapid ventricular response Abnormal ECG Confirmed by Tanner Damon ([id number]), metropolitan editor MADHAV VALDOVINOS ([id number]) on 06/28/2023 10:20:04 AM Referred By: Confirmed By:Tanner Damon
[2023-06-25] MEDS: dilTIAZem 25 MG/5 ML Vial 15 MG IV BOLUS (18:45)
--- NOTE | 2023-06-25 18:55 | RAD_ITS ---
EXAM: XR CHEST, 1 VIEW CLINICAL INDICATION: chf TECHNIQUE: Frontal view of the chest. COMPARISON: 12/04/2020 FINDINGS: LUNGS AND PLEURAL SPACES: Unremarkable. No consolidation or edema. No pneumothorax. No effusion. HEART: Unremarkable. Cardiac silhouette not enlarged. MEDIASTINUM: Central airways and mediastinal contour are unremarkable. BONES/JOINTS: Unremarkable. No acute fracture. SOFT TISSUES: Unremarkable. RAD/Chest 1 View (Portable) IMPRESSION: No radiographic evidence of acute cardiopulmonary disease. Electronically Signed: Edmond Jerez MD at 19:30 EDT ,
--- NOTE | 2023-06-25 18:57 | ED.VIS.DYS ---
HPI History of Present Illness Chief Complaint: Shortness of Breath Informant: patient Narrative Narrative: 63-year-old male presenting to the emergency room with a chief complaint of dyspnea. Patient states that he has been diagnosed with atrial fibrillation and is on Eliquis. States he is a heavy lifelong smoker and has a history of COPD. He denies any change in his cough or sputum. He states that over the past week he has not gotten any sleep due to his dyspnea. He notes increased leg swelling and some orthopnea. He notes fast heart rate that he does not normally feel. He currently takes metoprolol 50 mg. He states the 50 mg was not well-tolerated and he was told to go back to 25 but he is unable to split the 50s so he has been just taking the 50s. He denies any fever. He notes his is currently being evaluated in the emergency department also with possible bronchitis. He does not wear home oxygen. He states he needs to have a sleep study as he may need to wear CPAP at night. Patient states that he underwent a stress test about a week ago. From what I can see in the computer he underwent stress test 16 June. Showed reduced ejection fraction. He states that ever since that stress test he just cannot seem to catch his breath or sleep. [facility] Medical History Arrhythmia Atrial fibrillation BPH (benign prostatic hyperplasia) COPD (chronic obstructive pulmonary disease) COPD exacerbation Coronary artery calcification of [place] artery Encounter for screening for malignant neoplasm of lung in current smoker with 30 pack year history or greater History of back injury Hypertension Obesity Osteoarthritis of right knee Pain in both knees Pain, joint, multiple sites Home Medications lisinopril 20 mg tablet 20 mg PO DAILY #90 tabs 01/14/23 [Rx Last Taken Unknown] albuterol sulfate 2.5 mg/3 mL (0.083 %) solution for nebulization 2.5 mg (3 mL) inhalation Q4H PRN shortness of breath or wheezing #180 mL 03/29/23 [Rx Last Taken Unknown] furosemide 40 mg tablet (Lasix) 40 mg PO DAILY #30 tabs 06/07/23 [Rx Last Taken Unknown] apixaban 5 mg tablet (Eliquis) See Rx Instructions .Route .COMPLEX #180 tabs 06/13/23 [Rx Last Taken Unknown] albuterol sulfate 90 mcg/actuation aerosol inhaler 2 puff PO Q6H PRN PRN for wheezing #9 GMS 06/24/23 [Rx Last Taken Unknown] metoprolol succinate 50 mg tablet,extended release 24 hr 50 mg PO DAILY 06/25/23 [History Last Taken Unknown] Allergy/AdvReac Type Severity Reaction Status Date / Time No Known Allergies Allergy Verified 06/25/23 18:06 Family History Brother Asthma Hypertension Mother Arthritis Cancer Social History Smoking Status: Current every day smoker tobacco type: cigarettes Tobacco: How many years used: 43 how long ago did patient quit smoking: 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, 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 alcohol intake: current alcohol intake frequency: a few times a month Alcohol type: beer substance use type: does not use what type of physical activity do you participate in: none ROS ROS ED Constitutional Constitutional ED: Denies chills, fever(s) or weight loss Eyes Eyes: Denies change in vision or diplopia ENT ENT ED: Denies ear pain, rhinorrhea or sore throat Cardiovascular Cardiovascular: Reports orthopnea, palpitations and racing heartbeat; Denies chest pain Respiratory/Chest Respiratory/Chest: Reports cough, dyspnea, dyspnea on exertion and orthopnea Gastrointestinal Gastrointestinal: Denies abdominal pain, diarrhea, nausea or vomiting Genitourinary Genitourinary ED: Denies dysuria, hematuria or urinary frequency Musculoskeletal Musculoskeletal: Reports other Details: Lower extremity edema ; Denies arthralgias or myalgias Integumentary Denies abscess or rash Neurologic Neurologic: Denies headache(s) or weakness Psychiatric Psychiatric: Denies anxiety, depression, suicidal ideation or suicidal thoughts Endocrine Endocrinology: Denies polydipsia, polyphagia or polyuria Allergic/Immunologic Allergic/Immunologic ED: Denies mouth swelling, tongue swelling or urticaria EXAM Physical Exam Const Vital Signs: 06/25/23 18:04 06/25/23 18:32 06/25/23 18:45 Temperature 97.4 F L 97.4 F L Temperature Source Temporal Temporal Pulse Rate 80 120 H Respiratory Rate 20 H 20 H Respiratory Effort Short of Breath Labored Respiratory Pattern Tachypnea Blood Pressure 151/128 H 102/80 Blood Pressure Mean 135 87 Blood Pressure Source Pulse Ox 87 95 Oxygen Delivery Method Room Air Nasal Cannula Nasal Cannula Oxygen Flow Rate (L/min) 2.5 2.5 06/25/23 18:54 06/25/23 19:15 06/25/23 19:15 Temperature 97.6 F L 97.6 F L Temperature Source Oral Oral Pulse Rate 91 105 H Respiratory Rate 32 H 25 H Respiratory Effort Respiratory Pattern Blood Pressure 107/94 H 107/94 H Blood Pressure Mean 98 98 Blood Pressure Source Pulse Ox 91 92 Oxygen Delivery Method Nasal Cannula Nasal Cannula Nasal Cannula Oxygen Flow Rate (L/min) 2 06/25/23 20:31 06/25/23 21:05 06/25/23 21:00 Temperature 98.3 F 98.3 F Temperature Source Oral Oral Pulse Rate 154 H 115 H 125 H Respiratory Rate 31 H 35 H 32 H Respiratory Effort Respiratory Pattern Blood Pressure 130/85 H 130/97 H 130/97 H Blood Pressure Mean 100 108 108 Blood Pressure Source Monitor Pulse Ox 90 Oxygen Delivery Method Nasal Cannula Oxygen Flow Rate (L/min) 3 06/25/23 21:09 06/25/23 21:10 06/25/23 20:30 Temperature 98.3 F Temperature Source Pulse Rate 135 H 135 H 135 H Respiratory Rate 35 H 20 H Respiratory Effort Respiratory Pattern Blood Pressure 130/97 H Blood Pressure Mean 108 Blood Pressure Source Pulse Ox 90 Oxygen Delivery Method Oxygen Flow Rate (L/min) Positive well nourished, well developed and obese General Appearance ED: well developed Nutritional Appearance: obese HEENT Reports normocephalic, head/scalp atraumatic and moist mucous membranes Eyes PERRL and EOMs intact bilaterally Neck no lymphadenopathy, supple and no JVD Resp normal respiratory effort Auscultation: rales and wheezes expiratory wheezes Cardio no murmurs Rate: tachycardic Rhythm: abnormal rhythm irregularly irregular GI normal to inspection, nondistended, normoactive bowel sounds and non-tender Palpation: soft Back/Spine no CVA tenderness and normal ROM Extremity General Extremety ED: Yes edema General Extremity: edema bilateral lower extremity Neuro oriented x3 and CN's II-XII intact bilaterally Sensorium / Orientation: alert Motor Exam: strength 5/5 throughout Psych mental status grossly normal Mood & Affect: Negative for depressed or tearful Skin no rashes or lesions noted and no wounds MDM MDM MDM Narrative Medical decision making narrative: White count is 6.2 hemoglobin 16.3 platelet count 203. INR 1.6 PTT 34.2 creatinine 1.3 sodium 135 glucose 102 troponin normal at 30 BNP 172.9. My independent trepidation of the plain chest x-ray is no acute process. Patient has remained in A-fib with RVR was given Cardizem and placed on Cardizem drip. His tested positive for RSV and this patient also tested positive for RSV. He received a breathing treatment and Solu-Medrol. Because of the A-fib with RVR and the RSV infection which is resulting in COPD exacerbation which then is resulting in acute hypoxemic respiratory failure the plan will be admission History & Record Review Discussion w/independent historian: Patient Lab Data Attestation: I reviewed the patient's lab results. Labs: Laboratory Results - last 24 hr 06/25/23 18:40 WBC 6.2 RBC 5.25 Hgb 16.3 Hct 49.3 MCV 93.9 MCH 31.0 MCHC 33.1 RDW Std Deviation 44.7 H RDW Coeff of [place] 13.0 Plt Count 203 MPV 11.9 Immature Gran % (Auto) 0.500 Neut % (Auto) 74.4 H Lymph % (Auto) 15.3 L [place] % (Auto) 6.1 Eos % (Auto) 3.2 Baso % (Auto) 0.5 Absolute Neuts (auto) 4.6 Absolute Lymphs (auto) 0.95 Nucleated RBC % 0 PT 19.4 H INR 1.6 APTT 34.2 Sodium 135 L Potassium 3.7 Chloride 102 Carbon Dioxide 26.0 Anion Gap 7 BUN 20 H Creatinine 1.30 Estim Creat Clear Calc 83.00 Est GFR (MDRD) Af Amer 72 Est GFR (MDRD) Non-Af 59 L BUN/Creatinine Ratio 15.4 Glucose 102 Calcium 9.5 Magnesium 2.0 Total Bilirubin 1.00 Direct Bilirubin 0.42 H AST 34 ALT 33 Alkaline Phosphatase 97 Troponin I High Sens 30 B-Natriuretic Peptide 172.9 H Total Protein 7.7 Albumin 3.6 Globulin 4.1 Radiography Diagnostic Testing: Clinical Impression(s) from Imaging Studies Chest X-Ray 06/25/23 18:55 IMPRESSION: No radiographic evidence of acute cardiopulmonary disease. Electronically Signed: Edmond Jerez MD at 19:30 EDT , EKG Initial EKG: Attestation: I personally reviewed and interpreted this EKG as follows: Comments: Atrial fibrillation with rapid ventricular response at a ventricular rate of 147 bpm Management Discussion w/another healthcare provider: Hospitalist Discharge Plan Dx/Rx/DC Orders Clinical Impression: Chronic anticoagulation, Acute hypoxemic respiratory failure, Atrial fibrillation with RVR Disposition Disposition: Acute Care Hospital [facility] Discharge Date/Time: 06/25/23 23:10
[2023-06-25 19:06] LABS: International Normalized Ratio 1.6; Prothrombin Time (Protime)PT. 19.4 SECONDS (11.7-14.9)
[2023-06-25 19:07] LABS: Absolute Lymphocyte Count 0.95 X10^3/uL (0.83-4.51); Absolute Neutrophil Count 4.6 X10^3/uL (2.0-7.7); Basophil# 0.03 X10^3/uL; Basophil% 0.5 % (0-1); Eosinophils% 3.2 % (0-5); Hematocrit 49.3 % (40-54); Hemoglobin 16.3 g/dL (13.0-16.5); Lymphocyte # 0.95 X10^3/ul (0.83-4.51); Lymphocyte % 15.3 % (19-41); Mean Corp Hgb Conc 33.1 g/dL (32-36); Mean Corpuscular Volume 93.9 fL (80-94); Mean Platelet Vol. 11.9 fl (6.2-12.0); Monocyte# 0.38 X10^3/uL; Monocyte% 6.1 % (0-10); NRBC Flagged by Analyzer 0 % (0-5); Neutrophil % 74.4 % (47-70); Partial Thromboplast Time 34.2 Seconds (24.1-36.2); Platelet Count 203 K/mm3 (150-450); RBC Distribution Width SD 44.7 fl (35.1-43.9); Red Blood Count 5.25 M/mm3 (4.6-6.2); White Blood Count 6.2 K/mm3 (4.4-11.0)
[2023-06-25 19:22] LABS: AST(SGOT) 34 U/L (15-37); Alanine Aminotransfer ALT/SGPT 33 U/L (16-61); Albumin, Serum 3.6 g/dL (3.2-5.0); Alkaline Phosphatase 97 U/L (45-117); Anion Gap 7 (5-15); BUN 20 mg/dL (7-18); BUN/Creat Ratio 15.4 RATIO (10-20); Bilirubin, Direct 0.42 mg/dL (0.00-0.30); Calcium,Total 9.5 mg/dL (8.5-10.1); Chloride 102 mmol/L (98-107); EST Glomerular Filtration Rate 59 mL/min (>60); Est Glom Filt Rate - Afr Amer 72 mL/min (>60); Globulin 4.1 g/dL (2.2-4.2); Glucose 102 mg/dL (74-106); Potassium 3.7 mmol/L (3.5-5.1); Protein, Total 7.7 g/dL (6.4-8.2); Sodium Level 135 mmol/L (136-145); Troponin-I HS 30 pg/mL (3.0-78.0)
[2023-06-25 19:46] LABS: BNP,B-Type NATRIURETIC PEPTIDE 172.9 pg/mL (0-100)
[2023-06-25] MEDS: dilTIAZem 25 MG/5 ML Vial 10 MG IV BOLUS (20:16)
[2023-06-25] MEDS: Furosemide 100 MG/10 ML Vial 60 MG IV (20:16)
[2023-06-25] MEDS: Albuterol 2.5 MG/3 ML VIAL.NEB. INHALATION (20:24)
[2023-06-25] MEDS: Diltiazem 125 MG in Dextrose 5%-Water (100mL Bag) 100 ML 10 MG CONT INF (20:31)
[2023-06-25] MEDS: MethylPREDNISolone 125 MG/2 ML Vial 60 MG IV (21:33)
[2023-06-25] MEDS: dilTIAZem 25 MG/5 ML Vial 20 MG IV BOLUS (21:42)
--- NOTE | 2023-06-25 21:43 | HP.PCM.HOS_ITS ---
HPI - General General Date of Admission: 06/25/23 Date of Service: 06/25/23 Chief Complaint: Shortness of breath HPI Narrative MELE HERNANDEZ, is a 63 M who presents to the ED with progressive shortness of breath. He endorses progressive shortness of breath with associated orthopnea since the last few days. He recently underwent a cardiac stress test and notes his symptoms have worsened since then. He reports his metoprolol dose was increased from 25 mg to 50 mg daily and he has been noticing an increased pedal edema since then. Also notes that his is having ongoing cough and presented to the ED for similar symptoms.Both his and 's RSV PCR has come back positive. His past medical history is positive for A-fib with RVR for which she is on metoprolol 50 mg daily, Eliquis 5 mg daily, COPD continues to smoke about 6 ci garettes/day, hypertension on losartan 20 mg daily. He recently underwent a cardiac stress test that did not show any active ischemia. His last echocardiogram was done in January 2023, showed normal ejection fraction and valvular functions. [facility] Medical History Arrhythmia Atrial fibrillation BPH (benign prostatic hyperplasia) COPD (chronic obstructive pulmonary disease) COPD exacerbation Coronary artery calcification of [place] artery Encounter for screening for malignant neoplasm of lung in current smoker with 30 pack year history or greater History of back injury Hypertension Obesity Osteoarthritis of right knee Pain in both knees Pain, joint, multiple sites Home Medications lisinopril 20 mg tablet 20 mg PO DAILY #90 tabs 01/14/23 [Rx Last Taken Unknown] albuterol sulfate 2.5 mg/3 mL (0.083 %) solution for nebulization 2.5 mg (3 mL) inhalation Q4H PRN shortness of breath or wheezing #180 mL 03/29/23 [Rx Last Taken Unknown] furosemide 40 mg tablet (Lasix) 40 mg PO DAILY #30 tabs 06/07/23 [Rx Last Taken Unknown] apixaban 5 mg tablet (Eliquis) See Rx Instructions .Route .COMPLEX #180 tabs 06/13/23 [Rx Last Taken Unknown] albuterol sulfate 90 mcg/actuation aerosol inhaler 2 puff PO Q6H PRN PRN for wheezing #9 GMS 06/24/23 [Rx Last Taken Unknown] metoprolol succinate 50 mg tablet,extended release 24 hr 50 mg PO DAILY 06/25/23 [History Last Taken Unknown] Allergy/AdvReac Type Severity Reaction Status Date / Time No Known Allergies Allergy Verified 06/25/23 18:06 Family History Brother Asthma Hypertension Mother Arthritis Cancer Social History Smoking Status: Current every day smoker tobacco type: cigarettes Tobacco: How many years used: 43 how long ago did patient quit smoking: 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, 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 alcohol intake: current alcohol intake frequency: a few times a month Alcohol type: beer substance use type: does not use what type of physical activity do you participate in: none ROS Review of Systems ROS Unobtainable: Denies due to encephalopathy, due to endotracheal tube, due to mental condition, due to mental status or other Constitutional Constitutional: Denies anorexia, change in weight, chills, fatigue, fever(s), malaise, night sweats, weakness or other Eyes Eyes: Denies blurry vision, change in eye color, change in vision, discharge from eye(s), double vision, erythema, eye pain, loss of vision or other ENT HEENT: Reports abnormal hearing Respiratory/Chest Respiratory/Chest: Reports dyspnea, shortness of breath at rest and wheezing; Denies excessive phlegm production, hemoptysis or productive cough Gastrointestinal Gastrointestinal: Reports diarrhea Genitourinary Genitourinary: Denies burning urination, difficulty urinating, dysuria, hematuria, nocturia, urinary frequency, urinary hesitancy, urinary incontinence, urinary urgency or other Musculoskeletal Musculoskeletal: Reports arthralgias and back pain Neurologic Neurologic: Denies abnormal gait, abnormal speech, confusion, disequilibrium, dizziness, focal weakness, headache(s), numbness, paresthesias, seizure-like activity, seizures, syncope, tingling, tremor(s) or other Psychiatric Psychiatric: Denies anxiety, depression, homicidal ideation, suicidal ideation or other Endocrine Endocrinology: Denies change in body appearance, cold intolerance, excessive sweating, heat intolerance, polydipsia, polyuria or other Hematologic/Lymphatic Hematologic/Lymphatic: Denies anemia, easy bleeding, easy bruising, lymphadenopathy or other Allergic/Immunologic Allergic/Immunologic: Denies rhinitis, hives, eczemia, asthma or other Vital Signs Vital Signs Vital Signs: 06/25/23 18:04 06/25/23 18:32 06/25/23 18:45 Temperature 97.4 F L 97.4 F L Temperature Source Temporal Temporal Pulse Rate 80 120 H Respiratory Rate 20 H 20 H Respiratory Effort Short of Breath Labored Respiratory Pattern Tachypnea Blood Pressure 151/128 H 102/80 Blood Pressure Mean 135 87 Blood Pressure Source Pulse Ox 87 95 Oxygen Delivery Method Room Air Nasal Cannula Nasal Cannula Oxygen Flow Rate (L/min) 2.5 2.5 06/25/23 18:54 06/25/23 19:15 06/25/23 19:15 Temperature 97.6 F L 97.6 F L Temperature Source Oral Oral Pulse Rate 91 105 H Respiratory Rate 32 H 25 H Respiratory Effort Respiratory Pattern Blood Pressure 107/94 H 107/94 H Blood Pressure Mean 98 98 Blood Pressure Source Pulse Ox 91 92 Oxygen Delivery Method Nasal Cannula Nasal Cannula Nasal Cannula Oxygen Flow Rate (L/min) 2 06/25/23 20:31 06/25/23 21:05 06/25/23 21:00 Temperature 98.3 F 98.3 F Temperature Source Oral Oral Pulse Rate 154 H 115 H 125 H Respiratory Rate 31 H 35 H 32 H Respiratory Effort Respiratory Pattern Blood Pressure 130/85 H 130/97 H 130/97 H Blood Pressure Mean 100 108 108 Blood Pressure Source Monitor Pulse Ox 90 Oxygen Delivery Method Nasal Cannula Oxygen Flow Rate (L/min) 3 06/25/23 21:09 06/25/23 21:10 06/25/23 20:30 Temperature 98.3 F Temperature Source Pulse Rate 135 H 135 H 135 H Respiratory Rate 35 H 20 H Respiratory Effort Respiratory Pattern Blood Pressure 130/97 H Blood Pressure Mean 108 Blood Pressure Source Pulse Ox 90 Oxygen Delivery Method Oxygen Flow Rate (L/min) Weight Weight: 292 lb 5.327 oz Body Mass Index (BMI) 39.6 Physical Exam Const alert and oriented x3 Constitutional Narrative: Obese HEENT normocephalic and head/scalp atraumatic Eyes PERRL Neck no lymphadenopathy Resp Auscultation: rhonchi lower bilaterally; Negative for crackles Cardio Cardio Narrative: Irregularly irregular tachycardia GI normal to inspection, nondistended, normoactive bowel sounds and soft to palpation Extremity Extremity Narrative: Bilateral pitting edema Neuro oriented x3 Results Medical Records Data Attestation: I reviewed the patient's medical records Lab / Micro Data Attestation: I reviewed the patient's lab results. 06/25/23 18:40 06/25/23 18:40 Labs: Laboratory Results - last 24 hr 06/25/23 18:40: WBC 6.2, RBC 5.25, Hgb 16.3, Hct 49.3, MCV 93.9, MCH 31.0, MCHC 33.1, RDW Std Deviation 44.7 H, RDW Coeff of Jerson 13.0, Plt Count 203, MPV 11.9, Immature Gran % (Auto) 0.500, Neut % (Auto) 74.4 H, Lymph % (Auto) 15.3 L, [place] % (Auto) 6.1, Eos % (Auto) 3.2, Baso % (Auto) 0.5, Absolute Neuts (auto) 4.6, Absolute Lymphs (auto) 0.95, Nucleated RBC % 0, PT 19.4 H, INR 1.6, APTT 34.2, Sodium 135 L, Potassium 3.7, Chloride 102, Carbon Dioxide 26.0, Anion Gap 7, BUN 20 H, Creatinine 1.30, Estim Creat Clear Calc 83.00, Est GFR (MDRD) Af Amer 72, Est GFR (MDRD) Non-Af 59 L, BUN/Creatinine Ratio 15.4, Glucose 102, Calcium 9.5, Magnesium 2.0, Total Bilirubin 1.00, Direct Bilirubin 0.42 H, AST 34, ALT 33, Alkaline Phosphatase 97, Troponin I High Sens 30, B-Natriuretic Peptide 172.9 H, Total Protein 7.7, Albumin 3.6, Globulin 4.1 Micro: Microbiology 06/25/23 20:20 Mucosa - Nose SARS-CoV-2, Influenza & RSV (PCR) - Final RSV Imaging Radiology Impression Chest X-Ray 06/25/23 18:55 IMPRESSION: No radiographic evidence of acute cardiopulmonary disease. Electronically Signed: Edmond Jerez MD at 19:30 EDT , Assessment & Plan Assessment/Plan (1) Atrial fibrillation with RVR: PLAN: Plan 63-year-old man with prior history of COPD, suspected coronary artery disease, A-fib with RVR presents to the ED with concerns regarding worsening shortness of breath. At the time of presentation he was in A-fib with RVR and was started on a Cardizem drip. He also was found to have RSV infection. His examination is concerning for COPD exacerbation with bilateral rales. The likely reason for his presentation is cardiac decompensation following his A-fib with RVR. The likely triggers are related to his RSV infection. His white count is normal and chest x-ray is not concerning for any bacterial pneumonia. 1. A-fib: Presently in A-fib with RVR -Continue Cardizem drip -Admit to PCU for telemetry monitoring -Continue anticoagulation with Eliquis 5 mg twice daily -Close monitoring of blood pressures -Hold off cardiology consult daily echocardiographically done 2. COPD exacerbation: Bilateral Rales present, likely in the setting of RSV infection -Continue DuoNebs, albuterol treatment -IV methylprednisone to complete 5 days of course therapy given the desaturation in the ED -Smoking cessation was strongly discussed and encouraged 3. RSV pneumonia: Symptomatic monitoring 4. Hypertension: Continue losartan, Lasix 5. ADHF: Repeat echocardiogram, it was last done in January and it was normal. Given the decompensation that case a possibility of pulmonary hypertension secondary to COPD also 6. Obesity/suspected REILLY: Will need outpatient sleep study not on CPAP at home 7. DVT prophylaxis: Already on therapeutic anticoagulation Charges/Coding Visit Charges Inpatient E&M: 40770 Init Hosp L2
--- NOTE | 2023-06-25 23:19 | ECHOD_ITS ---
Reason For Study: Afib/Flutter Procedure This was a 2D Doppler, Color Flow transthoracic echocardiogram. The study was technically difficult. Echo done with patient sitting up in bed due to SOB. Exam performed portable in patient room. Left Ventricle Normal LV size. Severe global left ventricular systolic dysfunction. The left ventricular ejection fraction is 20 %. Unable to assess diastolic dysfunction due to arrhythmia. Right Ventricle Normal RV size. Moderate global right ventricular systolic dysfunction. Atria The left and right atria are normal. Mitral Valve Mild (1+) mitral valve insufficiency. Tricuspid Valve Mild to moderate (1-2+) tricuspid valve insufficiency. Right ventricular systolic pressure estimated to be 37 mmHg. Aortic Valve Trisinus/trileaflet aortic valve. Pulmonic Valve The pulmonic valve is not well visualized. Great Vessels Normal sized aortic root. Pericardium/Pleural No pericardial effusion. MMode/2D Measurements & Calculations LVIDd: 5.9 cm IVSd: 1.3 cm Ao root diam: 3.6 cm LVIDs: 5.0 cm LVPWd: 1.1 cm LA dimension: 4.7 cm RVDd: 5.1 cm FS: 15.4 % LAV(MOD-bp): 69.5 ml LVAd ap4: 41.2 cm2 SV(MOD-sp4): 84.7 ml LAV(MOD-bp) Indexed: 28.3 ml/m2 LVLd ap4: 9.0 cm LAV(MOD-sp2): 77.2 ml EDV(MOD-sp4): 158.5 ml LAV(MOD-sp4): 60.9 ml EDV(sp4-el): 160.8 ml LVAs ap4: 27.3 cm2 LVLs ap4: 8.3 cm ESV(MOD-sp4): 73.8 ml ESV(sp4-el): 76.5 ml EF(MOD-sp4): 53.4 % EF(sp4-el): 52.4 % SV(sp4-el): 84.3 ml LA A4 area: 21.9 cm2 RA A4 area: 25.7 cm2 Doppler Measurements & Calculations MV E max alysia: 85.4 cm/sec MV V2 max: 95.6 cm/sec Ao V2 max: 84.9 cm/sec MV max P.7 mmHg Ao max P.9 mmHg MV V2 mean: 51.3 cm/sec Ao V2 mean: 60.0 cm/sec MV mean P.3 mmHg Ao mean P.7 mmHg MV V2 VTI: 25.5 cm Ao V2 VTI: 14.0 cm AV (velocity ratio): 1.0 LV V1 max: 72.0 cm/sec PA V2 max: 54.1 cm/sec TR max alysia: 236.5 cm/sec LV V1 max P.1 mmHg TR max P.4 mmHg LV V1 mean P.3 mmHg LV V1 mean: 52.6 cm/sec LV V1 VTI: 14.6 cm ECHO/Echo Complete Interpretation Summary Severe global left ventricular systolic dysfunction. The left ventricular ejection fraction is 20 %. Moderate global right ventricular systolic dysfunction. Mild to moderate (1-2+) tricuspid valve insufficiency. Right ventricular systolic pressure estimated to be 37 mmHg. Ordering Physician: Ramin Aceves Referring Physician: Leonidas Meraz Performed By: Dewayne Ragsdale RCS
[2023-06-25] MEDS: APIXABAN 5 MG TABLET PO (23:52)
[2023-06-26] VITALS (36 sets, daily range): BP systolic 91–128; BP diastolic 44–83; PULSE 68–116; RESP 20–27; TEMP 36–37.4; O2SAT 88–99
[2023-06-26] MEDS: Ipratropium/Albuterol Sulfate 3 ML AMPUL.NEB INHALATION ×7 (00:35→23:20)
[2023-06-26] MEDS: Diltiazem 125 MG in Dextrose 5%-Water (100mL Bag) 100 ML 15 MG CONT INF (05:17)
[2023-06-26] MEDS: 0.9% Saline Lock 10 ML Syringe IV ×2 (05:19→20:45)
[2023-06-26 06:25] LABS: Absolute Lymphocyte Count 0.41 X10^3/uL (0.83-4.51); Absolute Neutrophil Count 3.8 X10^3/uL (2.0-7.7); Basophil# 0.01 X10^3/uL; Basophil% 0.2 % (0-1); Hematocrit 48.4 % (40-54); Hemoglobin 15.3 g/dL (13.0-16.5); Lymphocyte # 0.41 X10^3/ul (0.83-4.51); Lymphocyte % 9.6 % (19-41); Mean Corp Hgb Conc 31.6 g/dL (32-36); Mean Corpuscular Hgb 30.4 pg (27.0-32.0); Mean Corpuscular Volume 96.2 fL (80-94); Mean Platelet Vol. 12.3 fl (6.2-12.0); Monocyte# 0.06 X10^3/uL; Monocyte% 1.4 % (0-10); NRBC Flagged by Analyzer 0 % (0-5); Neutrophil # 3.78 X10^3/uL (2.7-7.7); Neutrophil % 88.6 % (47-70); POSITIVE DIFFERENTIAL YES; POSITIVE MORPHOLOGY YES; Platelet Count 176 K/mm3 (150-450); RBC Distribution Width CV 13.1 % (11.6-14.6); RBC Distribution Width SD 46.1 fl (35.1-43.9); Red Blood Count 5.03 M/mm3 (4.6-6.2); White Blood Count 4.3 K/mm3 (4.4-11.0)
[2023-06-26 06:37] LABS: Differential Indicated SCAN CRITERIA MET
[2023-06-26 06:42] LABS: International Normalized Ratio 1.8; Prothrombin Time (Protime)PT. 20.5 SECONDS (11.7-14.9)
[2023-06-26 07:07] LABS: ALB/GLOB Ratio 0.8 RATIO (0.9-2.4); AST(SGOT) 38 U/L (15-37); Alanine Aminotransfer ALT/SGPT 33 U/L (16-61); Albumin, Serum 3.2 g/dL (3.2-5.0); Alkaline Phosphatase 87 U/L (45-117); Anion Gap 7 (5-15); BUN 22 mg/dL (7-18); BUN/Creat Ratio 19.6 RATIO (10-20); Bilirubin, Direct 0.35 mg/dL (0.00-0.30); Calcium,Total 9.2 mg/dL (8.5-10.1); Chloride 102 mmol/L (98-107); Creatinine, Serum 1.12 mg/dL (0.70-1.30); EST Glomerular Filtration Rate 71 mL/min (>60); Est Glom Filt Rate - Afr Amer 85 mL/min (>60); Glucose 129 mg/dL (74-106); Magnesium 2.2 mg/dL (1.6-2.6); Phosphorus 3.7 mg/dL (2.5-4.9); Potassium 4.1 mmol/L (3.5-5.1); Protein, Total 7.2 g/dL (6.4-8.2); Sodium Level 133 mmol/L (136-145); Thyroid Stim Hormone (TSH) 0.66 uIU/mL (0.358-3.74)
--- NOTE | 2023-06-26 07:59 | PCM.PN.HOSP ---
Reason for Visit Reason for Visit: Shortness of breath Subjective Subjective Mr. Doherty is a 63-year-old white male who presented to emergency department at [facility] on the evening of 06/25/2023 complaining of shortness of breath. He has a known history of A-fib with RVR and takes Eliquis for this and he is a lifelong smoker with a history of COPD. He denied any change in his cough or sputum but stated over the week prior to presentation he had not really gotten any sleep due to his shortness of breath. He did note some increased leg swelling and orthopnea. He also reported that his heart rate felt fast and that is atypical for him. He has been on metoprolol 50 mg a day and not been tolerating it well so he was told to go back to 25 mg but unable to split the 50 mg in half so he has been taking the 50 mg tablet. He had no fever but does report that his was also currently in the emergency department being evaluated for bronchitis. He is not oxygen dependent at baseline. He underwent a stress test on June 16 which showed reduced ejection fraction but no inducible ischemia. Vital signs on presentation showed temperature 97.4, heart rate 120, blood pressure 151/128 with a repeat at 102/80, respiratory was 20 and oxygen saturations were 87% on room air and improved to 95% on 2.5 L. CBC was unremarkable other than a mild left shift with a 74.4% neutrophilia. Coags were abnormal however he is on Eliquis at baseline. Chemistry panel showed mild hyponatremia the sodium of 135, renal function was close to baseline liver function was normal and troponin was 30. His BNP was elevated 172.9. TSH is within normal limits. Chest x-ray showed no evidence of acute cardiopulmonary process. EKG showed A-fib with RVR having a ventricular rate of 147 bpm. There were no signs of acute ischemia. Rapid COVID/influenza/RSV was positive for RSV. Patient states he is definitely feeling better than yesterday. Heart rates are better and the Cardizem drip is off and he just took his metoprolol so hopefully the metoprolol can keep his heart rates down. He states his legs have been more swollen for about 3 weeks. Objective Data Objective Data Vital Signs: Vital Signs Temp Pulse Resp BP Pulse Ox O2 Del Method O2 Flow Rate 98.0 F 70 20 H 110/63 94 Nasal Cannula 3 06/26/23 06:55 06/26/23 07:00 06/26/23 06:55 06/26/23 07:00 06/26/23 06:55 06/26/23 06:55 06/26/23 06:55 Oxygen Flow Rate (L/min) 3 Oxygen Delivery Method Nasal Cannula Weight: 126.8 kg Body Mass Index (BMI) 37.9 Intake & Output: Intake and Output for Last 24 Hours 06/24/23 06/25/23 06/26/23 23:59 23:59 23:59 Intake Total 36.42 / 42.67 400.42 / 400.42 Output Total 550 / 550 Balance 36.42 / 42.67 -149.58 / -149.58 Lab / Micro Data 06/26/23 05:02 06/26/23 05:02 Labs: Laboratory Results - last 24 hr 06/25/23 18:40: WBC 6.2, RBC 5.25, Hgb 16.3, Hct 49.3, MCV 93.9, MCH 31.0, MCHC 33.1, RDW Std Deviation 44.7 H, RDW Coeff of Jerson 13.0, Plt Count 203, MPV 11.9, Immature Gran % (Auto) 0.500, Neut % (Auto) 74.4 H, Lymph % (Auto) 15.3 L, [place] % (Auto) 6.1, Eos % (Auto) 3.2, Baso % (Auto) 0.5, Absolute Neuts (auto) 4.6, Absolute Lymphs (auto) 0.95, Nucleated RBC % 0, PT 19.4 H, INR 1.6, APTT 34.2, Sodium 135 L, Potassium 3.7, Chloride 102, Carbon Dioxide 26.0, Anion Gap 7, BUN 20 H, Creatinine 1.30, Estim Creat Clear Calc 83.00, Est GFR (MDRD) Af Amer 72, Est GFR (MDRD) Non-Af 59 L, BUN/Creatinine Ratio 15.4, Glucose 102, Calcium 9.5, Magnesium 2.0, Total Bilirubin 1.00, Direct Bilirubin 0.42 H, AST 34, ALT 33, Alkaline Phosphatase 97, Troponin I High Sens 30, B-Natriuretic Peptide 172.9 H, Total Protein 7.7, Albumin 3.6, Globulin 4.1 06/26/23 05:02: WBC 4.3 L, RBC 5.03, Hgb 15.3, Hct 48.4, MCV 96.2 H, MCH 30.4, MCHC 31.6 L, RDW Std Deviation 46.1 H, RDW Coeff of Jerson 13.1, Plt Count 176, MPV 12.3 H, Immature Gran % (Auto) 0.200, Neut % (Auto) 88.6 H, Lymph % (Auto) 9.6 L, [place] % (Auto) 1.4, Eos % (Auto) 0.0, Baso % (Auto) 0.2, Absolute Neuts (auto) 3.8, Absolute Lymphs (auto) 0.41 L, Nucleated RBC % 0, PT 20.5 H, INR 1.8, Sodium 133 L, Potassium 4.1, Chloride 102, Carbon Dioxide 24.0, Anion Gap 7, BUN 22 H, Creatinine 1.12, Estim Creat Clear Calc 94.10, Est GFR (MDRD) Af Amer 85, Est GFR (MDRD) Non-Af 71, BUN/Creatinine Ratio 19.6, Glucose 129 H, Calcium 9.2, Phosphorus 3.7, Magnesium 2.2, Total Bilirubin 0.80, Direct Bilirubin 0.35 H, AST 38 H, ALT 33, Alkaline Phosphatase 87, Total Protein 7.2, Albumin 3.2, Globulin 4.0, Albumin/Globulin Ratio 0.8 L, TSH 0.66 Micro: Microbiology 06/25/23 20:20 Mucosa - Nose SARS-CoV-2, Influenza & RSV (PCR) - Final RSV Radiography Diagnostic Testing: Radiology Impression Chest X-Ray 06/25/23 18:55 IMPRESSION: No radiographic evidence of acute cardiopulmonary disease. Electronically Signed: Edmond Jerez MD at 19:30 EDT , Physical Exam Const alert, oriented x3, no apparent distress and well nourished; Negative for average body habitus or healthy appearing Constitutional Narrative: Obese, white male, sitting up on the edge of the bed, talking on the phone, appears comfortable and nontoxic, currently on 2 L nasal cannula, no significant dyspnea with conversation HEENT head/scalp atraumatic and moist oral mucous membranes HEENT Narrative: Dentition is poor, Mallampati is 3-4, no thrush Head and Scalp: normocephalic Eyes PERRL, EOMs intact bilaterally and conjunctivae normal Eyes Narrative: No scleral icterus Neck no lymphadenopathy and supple Neck Narrative: Trachea is midline, neck is short and thick Resp normal respiratory effort, no retractions, no use of accessory muscles and No clear to auscultation bilaterally Resp Narrative: Diffusely diminished with few end expiratory wheezes diffusely, no signs of respiratory extremis Auscultation: wheezes; Negative for rales or rhonchi Cardio regular rate, S1 normal heart sound, S2 normal heart sound, no murmurs, no rub, no gallops and no clicks Cardio Narrative: Irregular irregular rhythm with a regular rate GI normal to inspection, nondistended, normoactive bowel sounds, soft to palpation and non-tender Extremity Extremity Narrative: 2-3+ bilateral lower extremity pitting edema up to the mid calf, no cyanosis or clubbing Skin skin turgor normal, no jaundice, no petechiae and no mottling Neuro oriented x3, moves all extremities and no focal motor deficits Speech: speech normal Psych affect normal Psych Narrative: Eye contact is good and patient interacts appropriately Assessment & Plan Assessment/Plan (1) Atrial fibrillation with RVR: (2) Dyspnea: (3) Hypoxia: (4) RSV infection: (5) Elevated brain natriuretic peptide (BNP) level: (6) COPD with acute exacerbation: (7) Hyponatremia: PLAN: Plan Dyspnea and hypoxia secondary to acute RSV infection causing acute exacerbation of COPD -Patient does not meet criteria for acute hypoxic respiratory failure based on data -Continue supportive care -Solu-Medrol 40 every 8 -DuoNebs scheduled every 4 hours while awake -As needed albuterol -Start Mucinex 1200 mg p.o. twice daily -Continue incentive spirometer -Add Pep therapy -Not on oxygen at baseline but currently requiring 3 L nasal cannula with an oxygen saturation of 94% -Wean as able -Will need ambulatory pulse ox prior to discharge A-fib with RVR -Patient has known history of paroxysmal atrial fibrillation -Suspect acute illness exacerbated rate -Discontinue Cardizem drip -Start metoprolol 50 mg p.o. twice daily -Continue Lasix but changed to IV twice daily 40 mg -Continue apixaban -Echocardiogram is pending--> will likely be done tomorrow morning -Follows with cardiology as an outpatient for his A-fib -It looks like at the last visit he had in April DCCV versus ablation were discussed and he did not want to pursue them Elevated BNP -Echocardiogram ordered and pending-will likely be done tomorrow -Had a recent stress test that was unremarkable for any inducible ischemia -Most recent echo was done on 02/20/2023 and showed an EF of 60% with normal LV function and size/pulmonary pressures were not reported -Patient is on home Lasix 40 mg daily -Start Lasix 40 mg IV push twice daily and monitor renal function -Patient has significant bilateral lower extremity edema -Add kirsten wraps Mild hyponatremia -Sodium is 133 -May be related to volume overload versus respiratory infection -Continue to monitor -Repeat BMP in a.m. Nonobstructive CAD/HTN -Coronary calcifications noted on CT -Recent stress test was negative for any inducible ischemia -Continue home lisinopril -Restart metoprolol 50 mg p.o. twice daily--> if has trouble tolerating this could transition to 25 mg every 6 BPH -Patient does not appear to have obstructive disease as he does not take any medications for this Suspected REILLY -Patient states he is scheduled for an outpatient sleep study in the near future Tobacco abuse -Recommend cessation -Nicotine patch made available Obesity -BMI is 37.9 -Recommend weight loss -Complicates treatment, prognosis, outcomes DVT prophylaxis -Patient is on apixaban CODE STATUS -Full code as verified on admission Charges/Coding Visit Charges Inpatient E&M: 62704 [facility] Hosp L3
[2023-06-26 08:28] LABS: Platelet Estimate ADEQUATE (ADEQ); Red Cell Morphology NORM C+C NORMAL (NORM C&C)
[2023-06-26] MEDS: APIXABAN 5 MG TABLET PO ×2 (08:53→20:45)
[2023-06-26] MEDS: Metoprolol Tartrate 50 MG Tablet PO ×2 (08:53→20:45)
[2023-06-26] MEDS: Furosemide 40 MG/4 ML Vial IV ×2 (09:29→17:38)
[2023-06-26] MEDS: guaiFENesin 1,200 MG Tablet 1200 MG PO ×2 (12:07→20:45)
[2023-06-26] MEDS: Lisinopril 20 MG Tablet PO (12:07)
[2023-06-26] MEDS: Menthol/Lanolin/Calamine/Znox 113 GM Tube 1 APPLIC TOPICAL (20:45)
[2023-06-27] VITALS (28 sets, daily range): BP systolic 99–149; BP diastolic 65–99; PULSE 85–134; RESP 18–30; TEMP 36.1–36.7; O2SAT 93–97
[2023-06-27] MEDS: Ipratropium/Albuterol Sulfate 3 ML AMPUL.NEB INHALATION ×4 (03:46→19:05)
[2023-06-27] MEDS: 0.9% Saline Lock 10 ML Syringe IV ×3 (05:41→20:26)
[2023-06-27 06:48] LABS: Absolute Lymphocyte Count 0.46 X10^3/uL (0.83-4.51); Absolute Neutrophil Count 6.4 X10^3/uL (2.0-7.7); Basophil# 0.01 X10^3/uL; Basophil% 0.1 % (0-1); Hemoglobin 15.6 g/dL (13.0-16.5); Lymphocyte # 0.46 X10^3/ul (0.83-4.51); Lymphocyte % 6.5 % (19-41); Mean Corp Hgb Conc 32.5 g/dL (32-36); Mean Corpuscular Hgb 30.6 pg (27.0-32.0); Mean Corpuscular Volume 94.3 fL (80-94); Mean Platelet Vol. 11.7 fl (6.2-12.0); Monocyte# 0.18 X10^3/uL; Monocyte% 2.6 % (0-10); NRBC Flagged by Analyzer 0 % (0-5); Neutrophil # 6.37 X10^3/uL (2.7-7.7); Neutrophil % 90.4 % (47-70); POSITIVE DIFFERENTIAL YES; Platelet Count 163 K/mm3 (150-450); RBC Distribution Width CV 12.9 % (11.6-14.6); RBC Distribution Width SD 44.9 fl (35.1-43.9); Red Blood Count 5.09 M/mm3 (4.6-6.2); White Blood Count 7.1 K/mm3 (4.4-11.0)
[2023-06-27] MEDS: Digoxin 250 MCG/ML Ampul IV (07:06)
[2023-06-27 07:15] LABS: Anion Gap 4 (5-15); BUN 27 mg/dL (7-18); BUN/Creat Ratio 27.6 RATIO (10-20); Chloride 102 mmol/L (98-107); Creatinine, Serum 0.98 mg/dL (0.70-1.30); EST Glomerular Filtration Rate 82 mL/min (>60); Est Glom Filt Rate - Afr Amer 100 mL/min (>60); Estimated Creatinine Clearance 107.54 ml/min; Glucose 146 mg/dL (74-106); Potassium 3.8 mmol/L (3.5-5.1); Sodium Level 134 mmol/L (136-145)
[2023-06-27] MEDS: Metoprolol Tartrate 50 MG Tablet PO ×2 (08:48→20:26)
[2023-06-27] MEDS: guaiFENesin 1,200 MG Tablet 1200 MG PO ×2 (08:48→20:26)
[2023-06-27] MEDS: APIXABAN 5 MG TABLET PO ×2 (08:48→20:26)
[2023-06-27] MEDS: Lisinopril 20 MG Tablet PO (08:48)
[2023-06-27] MEDS: Furosemide 40 MG/4 ML Vial IV ×2 (08:49→17:23)
[2023-06-27] MEDS: Menthol/Lanolin/Calamine/Znox 113 GM Tube 1 APPLIC TOPICAL ×2 (09:00→20:25)
--- NOTE | 2023-06-27 10:48 | PN.HOSP_ITS ---
Reason for Visit Reason for Visit: Diagnoses Other specified viral diseases (06/25/23) Hypo-osmolality and hyponatremia (06/25/23) Unspecified atrial fibrillation (06/25/23) Chronic obstructive pulmonary disease with (acute) exacerbation (06/25/23) Dyspnea, unspecified (06/25/23) Hypoxemia (06/25/23) Other specified abnormal findings of blood chemistry (06/25/23) Subjective Subjective Patient is a 63-year-old gentleman with history of COPD admitted with progressive shortness of breath Objective Data Objective Data Vital Signs: Vital Signs Temp Pulse Resp BP Pulse Ox O2 Del Method O2 Flow Rate 96.9 F L 134 H 22 H 111/89 H 94 Nasal Cannula 2 06/27/23 08:37 06/27/23 08:48 06/27/23 08:37 06/27/23 08:48 06/27/23 08:37 06/27/23 08:37 06/27/23 08:37 Oxygen Flow Rate (L/min) 2 Oxygen Delivery Method Nasal Cannula Weight: 126.8 kg Body Mass Index (BMI) 37.9 Intake & Output: Intake and Output for Last 24 Hours 06/25/23 06/26/23 06/27/23 23:59 23:59 23:59 Intake Total 36.42 / 42.67 1262.67 / 1262.67 Output Total 550 / 550 400 / 400 Balance 36.42 / 42.67 712.67 / 712.67 -400 / -400 Lab / Micro Data 06/27/23 05:55 06/27/23 05:55 Labs: Laboratory Results - last 24 hr 06/27/23 05:55: WBC 7.1, RBC 5.09, Hgb 15.6, Hct 48.0, MCV 94.3 H, MCH 30.6, MCHC 32.5, RDW Std Deviation 44.9 H, RDW Coeff of Jerson 12.9, Plt Count 163, MPV 11.7, Immature Gran % (Auto) 0.400, Neut % (Auto) 90.4 H, Lymph % (Auto) 6.5 L, [place] % (Auto) 2.6, Eos % (Auto) 0.0, Baso % (Auto) 0.1, Absolute Neuts (auto) 6.4, Absolute Lymphs (auto) 0.46 L, Nucleated RBC % 0, Sodium 134 L, Potassium 3.8, Chloride 102, Carbon Dioxide 28.0, Anion Gap 4 L, BUN 27 H, Creatinine 0.98, Estim Creat Clear Calc 107.54, Est GFR (MDRD) Af Amer 100, Est GFR (MDRD) Non-Af 82, BUN/Creatinine Ratio 27.6 H, Glucose 146 H, Calcium 10.0 Micro: Microbiology 06/25/23 20:20 Mucosa - Nose SARS-CoV-2, Influenza & RSV (PCR) - Final RSV Physical Exam Narrative GENERAL: cooperative but dyspneic at rest HEENT: Atraumatic; normocephalic EYES; Anicteric, Normal Conjunctiva NECK; supple, normal thyroid, RESPIRATORY: Diminished to auscultation CARDIOVASCULAR: Regular S1 S2, GI: soft, normoactive bowel sounds, : No Renal angle tenderness; EXTREMITIES: No edema, no clubbing, MUSCULOSKELETAL: no muscle wasting NEURO: Awake; no lateralizing signs. SKIN: No Rash PSYCH; Flat affect Assessment & Plan Assessment/Plan (1) Atrial fibrillation with RVR: (2) RSV infection: PLAN: Plan Patient is a 63-year-old gentleman with history of COPD admitted with progressive shortness of breath 1. Acute hypoxia ? Due to combination of COPD exacerbation with superimposed RSV infection. Patient placed on supplemental oxygen titrated to keep saturation greater than 90 2. RSV infection ? Symptomatic management 3. COPD with acute exacerbation ? Managed with systemic steroid bronchodilator treatment as well as antibiotic therapy 4. Paroxysmal A-fib with RVR ? Patient was placed on Cardizem drip which has since been weaned off started on metoprolol. On systemic anticoagulation with apixaban 5. Acute on chronic congestive heart failure with preserved ejection fraction ? Complicating care. Echo from 02/20/2023 demonstrated EF of 60%. Patient placed on fluid restriction Daily weights IV diuretic therapy with Lasix. Repeat echo ordered for EF assessmen 6. Mild hyponatremia ? Monitor 7. Hypertension - Blood pressure controlled, home medications continued with dose adjustment as needed 8. Suspected obstructive sleep apnea ? Patient to undergo outpatient sleep study 9. BPH ? With no obstructive symptoms 10. Tobacco dependence - Counseled on cessation, offered nicotine patch for tobacco cravings 11. Class II obesity with BMI of 37.9 ? Complicating care weight loss advised 12. DVT prophylaxis ? On apixaban Time spent in the patient's overall evaluation,decision-making process, review of diagnostic data, adjustment of management, discussion with other providers, nursing nursing and ancillary staff involved in patient's care documentation, 45 Minutes Charges/Coding Visit Charges Inpatient E&M: 62719 Subs Hosp L2
[2023-06-27] MEDS: Diltiazem 125 MG in Dextrose 5%-Water (100mL Bag) 100 ML CONT INF (12:43)
[2023-06-27] MEDS: levoFLOXacin 500 MG Tablet PO (12:48)
[2023-06-27] MEDS: dilTIAZem 25 MG/5 ML Vial 20 MG IV BOLUS (12:48)
--- NOTE | 2023-06-27 14:30 | CASEMGMT ---
RN CM Face to Face with patient for initial transition planning/care coordination assessment. RN CM introduced self and role at [facility]. Patient sitting in chair, alert and oriented. Patient willing to participate in assessment and is able to answer all questions appropriately. Care providers, pharmacy, and demographics verified. PCP: Kt Specialists: Kaden, hospital chief executive officer Preferred Pharmacy: [facility] Insurance: MMO Prescription Benefit: yes Living Will/HPOA: none LNOK: Living Arrangements: Patient lives with in a mobile home with 4 steps and railing to enter the home. Patient states he is independent at home. Transportation: self, brothers, sister DME/HHC: Patient has grab bars and nebulizer at home. No previous HHC or SNF. Will monitor for home oxygen at discharge, patient prefers [employer]. Patient wishes to discharge home, denies need for home health at this time. Patient states he has no further needs or concerns at this time. CM to follow for discharge planning needs that may arise. Disposition Plan: Patient to discharge home with family support and follow-up plans in place. Will monitor for home oxygen. Nicole LIN, RN, CM
[2023-06-28] VITALS (22 sets, daily range): BP systolic 94–125; BP diastolic 55–92; PULSE 69–98; RESP 11–30; TEMP 36.3–36.7; O2SAT 87–99
[2023-06-28] MEDS: levoFLOXacin 500 MG Tablet PO (04:58)
[2023-06-28 07:26] LABS: Absolute Neutrophil Count 6.8 X10^3/uL (2.0-7.7); Basophil# 0.01 X10^3/uL; Basophil% 0.1 % (0-1); Hemoglobin 16.4 g/dL (13.0-16.5); Lymphocyte % 10.3 % (19-41); Mean Corp Hgb Conc 32.8 g/dL (32-36); Mean Corpuscular Hgb 31.1 pg (27.0-32.0); Mean Corpuscular Volume 94.9 fL (80-94); Mean Platelet Vol. 12.2 fl (6.2-12.0); Monocyte# 0.19 X10^3/uL; Monocyte% 2.4 % (0-10); NRBC Flagged by Analyzer 0 % (0-5); Neutrophil # 6.77 X10^3/uL (2.7-7.7); Neutrophil % 86.8 % (47-70); Platelet Count 185 K/mm3 (150-450); RBC Distribution Width CV 12.9 % (11.6-14.6); RBC Distribution Width SD 45.8 fl (35.1-43.9); Red Blood Count 5.27 M/mm3 (4.6-6.2); White Blood Count 7.8 K/mm3 (4.4-11.0)
[2023-06-28] MEDS: Ipratropium/Albuterol Sulfate 3 ML AMPUL.NEB INHALATION ×4 (07:55→20:41)
[2023-06-28 08:11] LABS: Anion Gap 5 (5-15); BUN 31 mg/dL (7-18); BUN/Creat Ratio 35.2 RATIO (10-20); Chloride 101 mmol/L (98-107); Creatinine, Serum 0.88 mg/dL (0.70-1.30); EST Glomerular Filtration Rate 93 mL/min (>60); Est Glom Filt Rate - Afr Amer 113 mL/min (>60); Estimated Creatinine Clearance 119.76 ml/min; Glucose 121 mg/dL (74-106); Magnesium 2.5 mg/dL (1.6-2.6); Phosphorus 3.3 mg/dL (2.5-4.9); Potassium 4.3 mmol/L (3.5-5.1); Sodium Level 134 mmol/L (136-145)
--- NOTE | 2023-06-28 09:26 | DS.PCM_ITS ---
Providers Date of Admission: 06/25/23 Date of Discharge: 06/28/23 Primary Care Physician: Dr. Leonidas Meraz MD Reason For Visit: SHORTNESS OF BREATH Diagnosis Discharge Diagnosis (1) Atrial fibrillation with RVR: Status: Acute Code(s): I48.91 - Unspecified atrial fibrillation (2) RSV infection: Status: Acute Code(s): B33.8 - Other specified viral diseases Plan Patient is a 63-year-old gentleman with history of COPD admitted with progressive shortness of breath 1. Acute hypoxia ? Due to combination of COPD exacerbation with superimposed RSV infection. Patient placed on supplemental oxygen titrated to keep saturation greater than 90 ? I have reviewed the oxygen testing, and this patient qualifies for the home equipment and portability. The patient is mobile in the home and the community. 2. RSV infection ? Symptomatic management 3. COPD with acute exacerbation ? Managed with systemic steroid bronchodilator treatment as well as antibiotic therapy 4. Paroxysmal A-fib with RVR ? Patient was placed on Cardizem drip which has since been weaned off started on metoprolol. On systemic anticoagulation with apixaban 5. Acute on chronic congestive heart failure with preserved ejection fraction ? Complicating care. Echo from 02/20/2023 demonstrated EF of 60%. Patient placed on fluid restriction Daily weights IV diuretic therapy with Lasix. Repeat echo ordered for EF assessmen 6. Mild hyponatremia ? Monitor 7. Hypertension - Blood pressure controlled, home medications continued with dose adjustment as needed 8. Suspected obstructive sleep apnea ? Patient to undergo outpatient sleep study 9. BPH ? With no obstructive symptoms 10. Tobacco dependence - Counseled on cessation, offered nicotine patch for tobacco cravings 11. Class II obesity with BMI of 37.9 ? Complicating care weight loss advised 12. DVT prophylaxis ? On apixaban Time spent in the patient's overall evaluation,decision-making process, review of diagnostic data, adjustment of management, discussion with other providers, nursing nursing and ancillary staff involved in patient's care documentation, 32 Minutes Medications at Discharge Home Medications lisinopril 20 mg tablet 20 mg PO DAILY #90 tabs 01/14/23 albuterol sulfate 2.5 mg/3 mL (0.083 %) solution for nebulization 2.5 mg (3 mL) inhalation Q4H PRN shortness of breath or wheezing #180 mL 01/02/24 furosemide 40 mg tablet (Lasix) 40 mg PO DAILY #30 tabs 06/07/23 apixaban 5 mg tablet (Eliquis) See Rx Instructions .Route .COMPLEX #180 tabs 06/13/23 albuterol sulfate 90 mcg/actuation aerosol inhaler 2 puff PO Q6H PRN PRN for wheezing #9 GMS 06/24/23 diltiazem HCl 180 mg capsule,extended release 24 hr (Cartia XT) 180 mg PO DAILY #60 caps 06/28/23 guaifenesin 1,200 mg tablet, extended release 12 hr (Mucus Relief ER) 1,200 mg PO BID 10 days #20 tabs 06/28/23 levofloxacin 500 mg tablet 500 mg PO DAILY@0600 #5 tabs 06/28/23 metoprolol tartrate 50 mg tablet 50 mg PO BID #120 tabs 06/28/23 nicotine 21 mg/24 hr daily transdermal patch 21 mg transdermal DAILY #30 ea 0 06/28/23 prednisone 20 mg tablet 20 mg PO BID #14 tabs 06/28/23 Physical Exam Narrative GENERAL: cooperative HEENT: Atraumatic; normocephalic EYES; Anicteric, Normal Conjunctiva NECK; supple, normal thyroid, RESPIRATORY: Diminished to auscultation CARDIOVASCULAR: Regular S1 S2, GI: soft, normoactive bowel sounds, : No Renal angle tenderness; EXTREMITIES: No edema, no clubbing, MUSCULOSKELETAL: no muscle wasting NEURO: Awake; no lateralizing signs. SKIN: No Rash PSYCH; Flat affect Weight / BMI Weight Weight: 126.8 kg Body Mass Index (BMI) 37.9 ABG / Lab / Microbiology Data 06/28/23 06:35 06/28/23 06:35 Laboratory: Laboratory Results - last 24 hr 06/28/23 06:35: WBC 7.8, RBC 5.27, Hgb 16.4, Hct 50.0, MCV 94.9 H, MCH 31.1, MCHC 32.8, RDW Std Deviation 45.8 H, RDW Coeff of Jerson 12.9, Plt Count 185, MPV 12.2 H, Immature Gran % (Auto) 0.400, Neut % (Auto) 86.8 H, Lymph % (Auto) 10.3 L, [place] % (Auto) 2.4, Eos % (Auto) 0.0, Baso % (Auto) 0.1, Absolute Neuts (auto) 6.8, Absolute Lymphs (auto) 0.80 L, Nucleated RBC % 0, Sodium 134 L, Potassium 4.3, Chloride 101, Carbon Dioxide 28.0, Anion Gap 5, BUN 31 H, Creatinine 0.88, Estim Creat Clear Calc 119.76, Est GFR (MDRD) Af Amer 113, Est GFR (MDRD) Non-Af 93, BUN/Creatinine Ratio 35.2 H, Glucose 121 H, Calcium 10.0, Phosphorus 3.3, Magnesium 2.5 Microbiology: Microbiology 06/25/23 20:20 Mucosa - Nose SARS-CoV-2, Influenza & RSV (PCR) - Final RSV Radiography Diagnostic Testing: Radiology Impression Echocardiogram 06/25/23 23:19 Interpretation Summary Severe global left ventricular systolic dysfunction. The left ventricular ejection fraction is 20 %. Moderate global right ventricular systolic dysfunction. Mild to moderate (1-2+) tricuspid valve insufficiency. Right ventricular systolic pressure estimated to be 37 mmHg. Ordering Physician: Ramin Aceves Referring Physician: Leonidas Meraz Performed By: Dewayne Ragsdale [facility] D/C Instructions Discharge Diet: No restrictions Discharge Activity: Return to Normal Activity Call your doctor if you observe: Fever of 101 or Higher, Shortness of breath, Fainting spells and Chest pain Discharge Plan Admission Admit Date/Time: 06/25/23 22:06 Attending Provider: Kirill Davey Primary Care Provider: Leonidas Meraz Consulting Providers: Ramin Aceves; Coleen Martinez Discharge Orders/Prescriptions Prescriptions: New metoprolol tartrate 50 mg Tablet 50 mg PO BID Qty: 120 0RF nicotine 21 mg/24 hr Patch 24 Hour 21 mg transdermal DAILY Qty: 30 0RF levofloxacin 500 mg Tablet 500 mg PO DAILY@0600 Qty: 5 0RF guaifenesin [Mucus Relief ER] 1,200 mg Tablet Extended Release 12hr 1,200 mg PO BID 10 Days Qty: 20 0RF prednisone 20 mg tablet 20 mg PO BID Qty: 14 0RF diltiazem HCl [Cartia XT] 180 mg capsule,extended release 24hr 180 mg PO DAILY Qty: 60 0RF Continued lisinopril 20 mg tablet 20 mg PO DAILY Qty: 90 1RF albuterol sulfate 2.5 mg /3 mL (0.083 %) solution for nebulization 2.5 mg inhalation Q4H PRN (Reason: shortness of breath or wheezing) Qty: 180 1RF furosemide [Lasix] 40 mg tablet 40 mg PO DAILY Qty: 30 6RF Eliquis 5 mg tablet See Rx Instructions .ROUTE .COMPLEX Qty: 180 1RF Dose Instruction: Take 1 tablet by mouth twice daily Rx Instructions: Take 1 tablet by mouth twice daily albuterol sulfate 90 mcg/actuation HFA aerosol inhaler 2 puff PO Q6H PRN PRN (Reason: for wheezing) Qty: 9 0RF Discontinued metoprolol succinate 50 mg tablet extended release 24 hr 50 mg PO DAILY Referrals / Follow Up: Leonidas Meraz MD [Primary Care Provider] - Within 2 Weeks Disposition Disposition (needs filled in before D/C Order can be placed): Home, Self Care Charges/Coding Visit Charges Inpatient E&M: 69680 Disch Hosp >30min
[2023-06-28] MEDS: APIXABAN 5 MG TABLET PO ×2 (10:02→20:37)
[2023-06-28] MEDS: guaiFENesin 1,200 MG Tablet 1200 MG PO ×2 (10:02→20:37)
[2023-06-28] MEDS: 0.9% Saline Lock 10 ML Syringe IV ×3 (10:02→20:53)
[2023-06-28] MEDS: Furosemide 40 MG/4 ML Vial IV ×3 (10:02→20:38)
[2023-06-28] MEDS: Metoprolol Tartrate 50 MG Tablet PO ×2 (10:02→20:37)
[2023-06-28] MEDS: Lisinopril 20 MG Tablet PO (10:02)
[2023-06-28] MEDS: Menthol/Lanolin/Calamine/Znox 113 GM Tube 1 APPLIC TOPICAL ×2 (10:03→20:38)
--- NOTE | 2023-06-28 10:57 | PHA.DC_ITS ---
Pharmacy [facility] has performed discharge medication reconciliation and counseling for this patient. The patient's discharge medication list was reviewed for discrepancies and discrepancies were resolved. The patient was counseled on the following discharge medications and changes in medications for homegoing were reviewed. The Reason for Use, instructions for use, and potential side effects were reviewed for all new medications. The patient's questions regarding all of their medications were answered. 1. Diltiazem 180 mg PO daily 2. Metoprolol tartrate 50 mg PO BID 3. Levofloxacin 500 mg daily x 5 days 4. Prednisone 20 mg PO BID x 7 days 5. Guaifenesin 1200 mg PO BID 6. Nicotine patch 21 mg daily The patient was able to verbally demonstrate an understanding of their discharge medications. Medications at Discharge Home Medications lisinopril 20 mg tablet 20 mg PO DAILY #90 tabs 01/14/23 albuterol sulfate 2.5 mg/3 mL (0.083 %) solution for nebulization 2.5 mg (3 mL) inhalation Q4H PRN shortness of breath or wheezing #180 mL 03/29/23 furosemide 40 mg tablet (Lasix) 40 mg PO DAILY #30 tabs 06/07/23 apixaban 5 mg tablet (Eliquis) See Rx Instructions .Route .COMPLEX #180 tabs 06/13/23 albuterol sulfate 90 mcg/actuation aerosol inhaler 2 puff PO Q6H PRN PRN for wheezing #9 GMS 06/24/23 diltiazem HCl 180 mg capsule,extended release 24 hr (Cartia XT) 180 mg PO DAILY #60 caps 06/28/23 guaifenesin 1,200 mg tablet, extended release 12 hr (Mucus Relief ER) 1,200 mg PO BID 10 days #20 tabs 06/28/23 levofloxacin 500 mg tablet 500 mg PO DAILY@0600 #5 tabs 06/28/23 metoprolol tartrate 50 mg tablet 50 mg PO BID #120 tabs 06/28/23 nicotine 21 mg/24 hr daily transdermal patch 21 mg transdermal DAILY #30 ea 06/28/23 prednisone 20 mg tablet 20 mg PO BID #14 tabs 06/28/23
--- NOTE | 2023-06-28 11:17 | PN.HOSP_ITS ---
Reason for Visit Reason for Visit: Diagnoses Other specified viral diseases (06/25/23) Hypo-osmolality and hyponatremia (06/25/23) Unspecified atrial fibrillation (06/25/23) Chronic obstructive pulmonary disease with (acute) exacerbation (06/25/23) Dyspnea, unspecified (06/25/23) Hypoxemia (06/25/23) Other specified abnormal findings of blood chemistry (06/25/23) Subjective Subjective Plan was for patient to have been discharged home however patient became significantly dyspneic with ambulation. Decision to discharge patient home subsequently discontinued. Objective Data Objective Data Vital Signs: Vital Signs Temp Pulse Resp BP Pulse Ox O2 Del Method O2 Flow Rate 97.5 F L 98 23 H 122/69 H 95 Nasal Cannula 3 06/28/23 03:00 06/28/23 10:02 06/28/23 09:00 06/28/23 10:02 06/28/23 09:00 06/28/23 09:00 06/28/23 09:00 Oxygen Flow Rate (L/min) 3 Oxygen Delivery Method Nasal Cannula Weight: 126.8 kg Body Mass Index (BMI) 37.9 Intake & Output: Intake and Output for Last 24 Hours 06/26/23 06/27/23 06/28/23 23:59 23:59 23:59 Intake Total 1262.67 / 1262.67 451.42 / 656.42 300 / 300 Output Total 550 / 550 1200 / 1925 725 / 725 Balance 712.67 / 712.67 -748.58 / -1268.58 -425 / -425 Lab / Micro Data 06/28/23 06:35 06/28/23 06:35 Labs: Laboratory Results - last 24 hr 06/28/23 06:35: WBC 7.8, RBC 5.27, Hgb 16.4, Hct 50.0, MCV 94.9 H, MCH 31.1, MCHC 32.8, RDW Std Deviation 45.8 H, RDW Coeff of Jerson 12.9, Plt Count 185, MPV 12.2 H, Immature Gran % (Auto) 0.400, Neut % (Auto) 86.8 H, Lymph % (Auto) 10.3 L, [place] % (Auto) 2.4, Eos % (Auto) 0.0, Baso % (Auto) 0.1, Absolute Neuts (auto) 6.8, Absolute Lymphs (auto) 0.80 L, Nucleated RBC % 0, Sodium 134 L, Potassium 4.3, Chloride 101, Carbon Dioxide 28.0, Anion Gap 5, BUN 31 H, Creatinine 0.88, Estim Creat Clear Calc 119.76, Est GFR (MDRD) Af Amer 113, Est GFR (MDRD) Non-Af 93, BUN/Creatinine Ratio 35.2 H, Glucose 121 H, Calcium 10.0, Phosphorus 3.3, Magnesium 2.5 Micro: Microbiology 06/25/23 20:20 Mucosa - Nose SARS-CoV-2, Influenza & RSV (PCR) - Final RSV Radiography Diagnostic Testing: Radiology Impression Echocardiogram 06/25/23 23:19 Interpretation Summary Severe global left ventricular systolic dysfunction. The left ventricular ejection fraction is 20 %. Moderate global right ventricular systolic dysfunction. Mild to moderate (1-2+) tricuspid valve insufficiency. Right ventricular systolic pressure estimated to be 37 mmHg. Ordering Physician: Ramin Aceves Referring Physician: Leonidas Meraz Performed By: Dewayne Ragsdale [facility] Physical Exam Narrative GENERAL: cooperative but dyspneic at rest HEENT: Atraumatic; normocephalic EYES; Anicteric, Normal Conjunctiva NECK; supple, normal thyroid, RESPIRATORY: Diminished to auscultation CARDIOVASCULAR: Regular S1 S2, GI: soft, normoactive bowel sounds, : No Renal angle tenderness; EXTREMITIES: No edema, no clubbing, MUSCULOSKELETAL: no muscle wasting NEURO: Awake; no lateralizing signs. SKIN: No Rash PSYCH; Flat affect Assessment & Plan Assessment/Plan (1) COPD with acute exacerbation: PLAN: Plan Patient is a 63-year-old gentleman with history of COPD admitted with progressive shortness of breath 1. Acute hypoxia ? Due to combination of COPD exacerbation with superimposed RSV infection. Patient placed on supplemental oxygen titrated to keep saturation greater than 90 ? 06/28/2023 plan was for patient to have been discharged home however patient became significantly dyspneic with ambulation. Decision to discharge patient home subsequently discontinu 2. RSV infection ? Symptomatic management 3. COPD with acute exacerbation ? Managed with systemic steroid bronchodilator treatment as well as antibiotic therapy 4. Paroxysmal A-fib with RVR ? Patient was placed on Cardizem drip which has since been weaned off started on metoprolol. On systemic anticoagulation with apixaban 5. Acute on chronic congestive heart failure with preserved ejection fraction ? Complicating care. Echo from 02/20/2023 demonstrated EF of 60%. Patient placed on fluid restriction Daily weights IV diuretic therapy with Lasix. Repeat echo ordered for EF assessmen 6. Mild hyponatremia ? Monitor 7. Hypertension - Blood pressure controlled, home medications continued with dose adjustment as needed 8. Suspected obstructive sleep apnea ? Patient to undergo outpatient sleep study 9. BPH ? With no obstructive symptoms 10. Tobacco dependence - Counseled on cessation, offered nicotine patch for tobacco cravings 11. Class II obesity with BMI of 37.9 ? Complicating care weight loss advised 12. DVT prophylaxis ? On apixaban Time spent in the patient's overall evaluation,decision-making process, review of diagnostic data, adjustment of management, discussion with other providers, nursing nursing and ancillary staff involved in patient's care documentation, 40 Minutes Charges/Coding Visit Charges Inpatient E&M: 52102 Subs Hosp L2
[2023-06-29] VITALS (8 sets, daily range): BP systolic 108–119; BP diastolic 75–82; PULSE 81–107; RESP 16–18; TEMP 36.3–36.6; O2SAT 88–97
[2023-06-29] MEDS: levoFLOXacin 500 MG Tablet PO (05:19)
[2023-06-29] MEDS: Furosemide 40 MG/4 ML Vial IV ×2 (05:20→15:41)
[2023-06-29 07:24] LABS: Absolute Lymphocyte Count 1.18 X10^3/uL (0.83-4.51); Basophil# 0.02 X10^3/uL; Basophil% 0.2 % (0-1); Hematocrit 55.4 % (40-54); Hemoglobin 18.2 g/dL (13.0-16.5); Lymphocyte # 1.18 X10^3/ul (0.83-4.51); Lymphocyte % 12.4 % (19-41); Mean Corp Hgb Conc 32.9 g/dL (32-36); Mean Corpuscular Hgb 30.8 pg (27.0-32.0); Mean Corpuscular Volume 93.7 fL (80-94); Monocyte# 0.22 X10^3/uL; Monocyte% 2.3 % (0-10); NRBC Flagged by Analyzer 0 % (0-5); Neutrophil # 8.03 X10^3/uL (2.7-7.7); Neutrophil % 84.7 % (47-70); POSITIVE MORPHOLOGY YES; Platelet Count 211 K/mm3 (150-450); RBC Distribution Width CV 12.7 % (11.6-14.6); RBC Distribution Width SD 44.1 fl (35.1-43.9); Red Blood Count 5.91 M/mm3 (4.6-6.2); White Blood Count 9.5 K/mm3 (4.4-11.0)
[2023-06-29 07:26] LABS: Differential Indicated SCAN CRITERIA MET
[2023-06-29] MEDS: Ipratropium/Albuterol Sulfate 3 ML AMPUL.NEB INHALATION ×2 (07:35→11:24)
[2023-06-29 07:48] LABS: Anion Gap 7 (5-15); BUN 36 mg/dL (7-18); BUN/Creat Ratio 32.1 RATIO (10-20); Chloride 99 mmol/L (98-107); Creatinine, Serum 1.12 mg/dL (0.70-1.30); EST Glomerular Filtration Rate 71 mL/min (>60); Est Glom Filt Rate - Afr Amer 85 mL/min (>60); Glucose 120 mg/dL (74-106); Sodium Level 137 mmol/L (136-145)
[2023-06-29] MEDS: guaiFENesin 1,200 MG Tablet 1200 MG PO (09:25)
[2023-06-29] MEDS: Metoprolol Tartrate 50 MG Tablet PO (09:25)
[2023-06-29] MEDS: APIXABAN 5 MG TABLET PO (09:25)
[2023-06-29] MEDS: Lisinopril 20 MG Tablet PO (09:26)
--- NOTE | 2023-06-29 10:40 | PCM.DC.SUM ---
Providers Date of Admission: 06/25/23 Date of Discharge: 06/29/23 Primary Care Physician: Dr. Leonidas Meraz MD Reason For Visit: SHORTNESS OF BREATH Diagnosis Discharge Diagnosis (1) COPD with acute exacerbation: Status: Chronic Code(s): J44.1 - Chronic obstructive pulmonary disease with (acute) exacerbation Plan Patient is a 63-year-old gentleman with history of COPD admitted with progressive shortness of breath 1. Acute hypoxia ? Due to combination of COPD exacerbation with superimposed RSV infection. Patient placed on supplemental oxygen titrated to keep saturation greater than 90 ? 06/28/2023 plan was for patient to have been discharged home however patient became significantly dyspneic with ambulation. Decision to discharge patient home subsequently discontinue ?06/29/2023 I have reviewed the oxygen testing, and this patient qualifies for the home equipment and portability. The patient is mobile in the home and the community. 2. RSV infection ? Symptomatic management 3. COPD with acute exacerbation ? Managed with systemic steroid bronchodilator treatment as well as antibiotic therapy 4. Paroxysmal A-fib with RVR ? Patient was placed on Cardizem drip which has since been weaned off started on metoprolol. On systemic anticoagulation with apixaban 5. Acute on chronic congestive heart failure with preserved ejection fraction ? Complicating care. Echo from 02/20/2023 demonstrated EF of 60%. Patient placed on fluid restriction Daily weights IV diuretic therapy with Lasix. Repeat echo ordered for EF assessment ?06/29/2019 repeat 2D echo results are as below - Severe global left ventricular systolic dysfunction. The left ventricular ejection fraction is 20 %. Moderate global right ventricular systolic dysfunction. Mild to moderate (1-2+) tricuspid valve insufficiency. Right ventricular systolic pressure estimated to be 37 mmHg. ?Based on the significant drop; consult was placed to cardiology. Patient seen by Dr Damon, julia f/u as outpatient within a week 6. Mild hyponatremia ? Monitor 7. Hypertension - Blood pressure controlled, home medications continued with dose adjustment as needed 8. Suspected obstructive sleep apnea ? Patient to undergo outpatient sleep study 9. BPH ? With no obstructive symptoms 10. Tobacco dependence - Counseled on cessation, offered nicotine patch for tobacco cravings 11. Class II obesity with BMI of 37.9 ? Complicating care weight loss advised 12. DVT prophylaxis ? On apixaban Time spent in the patient's overall evaluation,decision-making process, review of diagnostic data, adjustment of management, discussion with other providers, nursing nursing and ancillary staff involved in patient's care documentation, 40 Minutes Medications at Discharge Home Medications lisinopril 20 mg tablet 20 mg PO DAILY #90 tabs 01/14/23 albuterol sulfate 2.5 mg/3 mL (0.083 %) solution for nebulization 2.5 mg (3 mL) inhalation Q4H PRN shortness of breath or wheezing #180 mL 03/29/23 furosemide 40 mg tablet (Lasix) 40 mg PO DAILY #30 tabs 06/07/23 apixaban 5 mg tablet (Eliquis) See Rx Instructions .Route .COMPLEX #180 tabs 06/13/23 albuterol sulfate 90 mcg/actuation aerosol inhaler 2 puff PO Q6H PRN PRN for wheezing #9 GMS 06/24/23 diltiazem HCl 180 mg capsule,extended release 24 hr (Cartia XT) 180 mg PO DAILY #60 caps 06/28/23 guaifenesin 1,200 mg tablet, extended release 12 hr (Mucus Relief ER) 1,200 mg PO BID 10 days #20 tabs 06/28/23 levofloxacin 500 mg tablet 500 mg PO DAILY@0600 #5 tabs 06/28/23 nicotine 21 mg/24 hr daily transdermal patch 21 mg transdermal DAILY #30 ea 06/28/23 prednisone 20 mg tablet 20 mg PO BID #14 tabs 06/28/23 carvedilol 12.5 mg tablet 12.5 mg PO BID #120 tabs 06/29/23 spironolactone 25 mg tablet 25 mg PO DAILY #60 tabs 06/29/23 Physical Exam Narrative GENERAL: cooperative but dyspneic at rest HEENT: Atraumatic; normocephalic EYES; Anicteric, Normal Conjunctiva NECK; supple, normal thyroid, RESPIRATORY: Diminished to auscultation CARDIOVASCULAR: Regular S1 S2, GI: soft, normoactive bowel sounds, : No Renal angle tenderness; EXTREMITIES: No edema, no clubbing, MUSCULOSKELETAL: no muscle wasting NEURO: Awake; no lateralizing signs. SKIN: No Rash PSYCH; Flat affect Weight / BMI Weight Weight: 126.8 kg Body Mass Index (BMI) 37.9 ABG / Lab / Microbiology Data 06/29/23 07:12 06/29/23 07:12 Laboratory: Laboratory Results - last 24 hr 06/29/23 07:12: WBC 9.5, RBC 5.91, Hgb 18.2 H*, Hct 55.4 H, MCV 93.7, MCH 30.8, MCHC 32.9, RDW Std Deviation 44.1 H, RDW Coeff of Jerson 12.7, Plt Count 211, MPV 12.0, Immature Gran % (Auto) 0.400, Neut % (Auto) 84.7 H, Lymph % (Auto) 12.4 L, [place] % (Auto) 2.3, Eos % (Auto) 0.0, Baso % (Auto) 0.2, Absolute Neuts (auto) 8.0 H, Absolute Lymphs (auto) 1.18, Nucleated RBC % 0, Diff Path Review May foll, Sodium 137, Potassium 4.0, Chloride 99, Carbon Dioxide 31.0, Anion Gap 7, BUN 36 H, Creatinine 1.12, Estim Creat Clear Calc 94.10, Est GFR (MDRD) Af Amer 85, Est GFR (MDRD) Non-Af 71, BUN/Creatinine Ratio 32.1 H, Glucose 120 H, Calcium 10.0 Microbiology: Microbiology 06/25/23 20:20 Mucosa - Nose SARS-CoV-2, Influenza & RSV (PCR) - Final RSV D/C Instructions Discharge Diet: 8 Cup Fluid Restriction and 2000 mg Sodium Diet Discharge Activity: Return to Normal Activity Call your doctor if you observe: Fever of 101 or Higher, Shortness of breath, Fainting spells and Chest pain Meaningful Use Info Meaningful Use Diagnoses (Choose all that apply): CHF CHF JENNIE/ARB ordered at discharge?: Yes Documented LVEF (%): 20 Discharge Plan Admission Admit Date/Time: 06/25/23 22:06 Attending Provider: Kirill Davey Primary Care Provider: Leonidas Meraz Consulting Providers: Ramin Aceves; Coleen Martinez; Tanner Damon Discharge Orders/Prescriptions Prescriptions: New nicotine 21 mg/24 hr Patch 24 Hour 21 mg transdermal DAILY Qty: 30 0RF levofloxacin 500 mg Tablet 500 mg PO DAILY@0600 Qty: 5 0RF guaifenesin [Mucus Relief ER] 1,200 mg Tablet Extended Release 12hr 1,200 mg PO BID 10 Days Qty: 20 0RF prednisone 20 mg tablet 20 mg PO BID Qty: 14 0RF diltiazem HCl [Cartia XT] 180 mg capsule,extended release 24hr 180 mg PO DAILY Qty: 60 0RF carvedilol 12.5 mg Tablet 12.5 mg PO BID Qty: 120 0RF spironolactone 25 mg tablet 25 mg PO DAILY Qty: 60 0RF Continued lisinopril 20 mg tablet 20 mg PO DAILY Qty: 90 1RF albuterol sulfate 2.5 mg /3 mL (0.083 %) solution for nebulization 2.5 mg inhalation Q4H PRN (Reason: shortness of breath or wheezing) Qty: 180 1RF furosemide [Lasix] 40 mg tablet 40 mg PO DAILY Qty: 30 6RF Eliquis 5 mg tablet See Rx Instructions .ROUTE .COMPLEX Qty: 180 1RF Dose Instruction: Take 1 tablet by mouth twice daily Rx Instructions: Take 1 tablet by mouth twice daily albuterol sulfate 90 mcg/actuation HFA aerosol inhaler 2 puff PO Q6H PRN PRN (Reason: for wheezing) Qty: 9 0RF Discontinued metoprolol succinate 50 mg tablet extended release 24 hr 50 mg PO DAILY Referrals / Follow Up: Leonidas Meraz MD [Primary Care Provider] - Within 2 Weeks Tanner Damon MD [Med Staff - Active Staff] - Within 1 Week Disposition Disposition (needs filled in before D/C Order can be placed): Home, Self Care Charges/Coding Visit Charges Inpatient E&M: 14178 Disch Hosp >30min
--- NOTE | 2023-06-29 10:42 | PCM.PN.HOSP ---
Reason for Visit Reason for Visit: Diagnoses Other specified viral diseases (06/25/23) Hypo-osmolality and hyponatremia (06/25/23) Unspecified atrial fibrillation (06/25/23) Chronic obstructive pulmonary disease with (acute) exacerbation (06/25/23) Dyspnea, unspecified (06/25/23) Hypoxemia (06/25/23) Other specified abnormal findings of blood chemistry (06/25/23) Subjective Subjective 2D echo result demonstrated significant drop in patient EF from 60% to 20%. Consult subsequently placed to cardiology Dr. Damon Objective Data Objective Data Vital Signs: Vital Signs Temp Pulse Resp BP Pulse Ox O2 Del Method O2 Flow Rate 97.8 F 107 H 16 119/79 89 Nasal Cannula 3 06/29/23 09:23 06/29/23 09:25 06/29/23 09:23 06/29/23 09:25 06/29/23 09:54 06/29/23 09:56 06/29/23 09:56 Oxygen Flow Rate (L/min) [ 4 AMBULATING with Oxygen #3] Oxygen Flow Rate (L/min) [At 3 REST with Oxygen] Oxygen Flow Rate (L/min) [ 3 AMBULATING with Oxygen #2] Oxygen Flow Rate (L/min) [ 2 AMBULATING with Oxygen #1] Oxygen Flow Rate (L/min) 3 Oxygen Delivery Method Nasal Cannula Weight: 126.8 kg Body Mass Index (BMI) 37.9 Intake & Output: Intake and Output for Last 24 Hours 06/27/23 06/28/23 06/29/23 23:59 23:59 23:59 Intake Total 451.42 / 656.42 2325.42 / 2325.42 400 / 400 Output Total 1200 / 1925 3200 / 3200 700 / 700 Balance -748.58 / -1268.58 -874.58 / -874.58 -300 / -300 Lab / Micro Data 06/29/23 07:12 06/29/23 07:12 Labs: Laboratory Results - last 24 hr 06/29/23 07:12: WBC 9.5, RBC 5.91, Hgb 18.2 H*, Hct 55.4 H, MCV 93.7, MCH 30.8, MCHC 32.9, RDW Std Deviation 44.1 H, RDW Coeff of Jerson 12.7, Plt Count 211, MPV 12.0, Immature Gran % (Auto) 0.400, Neut % (Auto) 84.7 H, Lymph % (Auto) 12.4 L, [place] % (Auto) 2.3, Eos % (Auto) 0.0, Baso % (Auto) 0.2, Absolute Neuts (auto) 8.0 H, Absolute Lymphs (auto) 1.18, Nucleated RBC % 0, Diff Path Review May foll, Sodium 137, Potassium 4.0, Chloride 99, Carbon Dioxide 31.0, Anion Gap 7, BUN 36 H, Creatinine 1.12, Estim Creat Clear Calc 94.10, Est GFR (MDRD) Af Amer 85, Est GFR (MDRD) Non-Af 71, BUN/Creatinine Ratio 32.1 H, Glucose 120 H, Calcium 10.0 Micro: Microbiology 06/25/23 20:20 Mucosa - Nose SARS-CoV-2, Influenza & RSV (PCR) - Final RSV Physical Exam Narrative GENERAL: cooperative but dyspneic at rest HEENT: Atraumatic; normocephalic EYES; Anicteric, Normal Conjunctiva NECK; supple, normal thyroid, RESPIRATORY: Diminished to auscultation CARDIOVASCULAR: Regular S1 S2, GI: soft, normoactive bowel sounds, : No Renal angle tenderness; EXTREMITIES: No edema, no clubbing, MUSCULOSKELETAL: no muscle wasting NEURO: Awake; no lateralizing signs. SKIN: No Rash PSYCH; Flat affect Assessment & Plan Assessment/Plan (1) COPD with acute exacerbation: PLAN: Plan Patient is a 63-year-old gentleman with history of COPD admitted with progressive shortness of breath 1. Acute hypoxia ? Due to combination of COPD exacerbation with superimposed RSV infection. Patient placed on supplemental oxygen titrated to keep saturation greater than 90 ? 06/28/2023 plan was for patient to have been discharged home however patient became significantly dyspneic with ambulation. Decision to discharge patient home subsequently discontinue ?06/29/2023 I have reviewed the oxygen testing, and this patient qualifies for the home equipment and portability. The patient is mobile in the home and the community. 2. RSV infection ? Symptomatic management 3. COPD with acute exacerbation ? Managed with systemic steroid bronchodilator treatment as well as antibiotic therapy 4. Paroxysmal A-fib with RVR ? Patient was placed on Cardizem drip which has since been weaned off started on metoprolol. On systemic anticoagulation with apixaban 5. Acute on chronic congestive heart failure with preserved ejection fraction ? Complicating care. Echo from 02/20/2023 demonstrated EF of 60%. Patient placed on fluid restriction Daily weights IV diuretic therapy with Lasix. Repeat echo ordered for EF assessment ?06/29/2019 repeat 2D echo results are as below - Severe global left ventricular systolic dysfunction. The left ventricular ejection fraction is 20 %. Moderate global right ventricular systolic dysfunction. Mild to moderate (1-2+) tricuspid valve insufficiency. Right ventricular systolic pressure estimated to be 37 mmHg. ?Based on the significant drop in his ejection fraction consult was placed to cardiology 6. Mild hyponatremia ? Monitor 7. Hypertension - Blood pressure controlled, home medications continued with dose adjustment as needed 8. Suspected obstructive sleep apnea ? Patient to undergo outpatient sleep study 9. BPH ? With no obstructive symptoms 10. Tobacco dependence - Counseled on cessation, offered nicotine patch for tobacco cravings 11. Class II obesity with BMI of 37.9 ? Complicating care weight loss advised 12. DVT prophylaxis ? On apixaban Time spent in the patient's overall evaluation,decision-making process, review of diagnostic data, adjustment of management, discussion with other providers, nursing nursing and ancillary staff involved in patient's care documentation, 40 Minutes Charges/Coding Visit Charges Inpatient E&M: 16891 Subs Hosp L2
--- NOTE | 2023-06-29 12:48 | PCM.CONS.C ---
Assessment & Plan Assessment/Plan (1) Congestive heart failure with left ventricular systolic dysfunction: PLAN: Echocardiogram done shows his EF has dropped from 60% to 20% since last follow-up. Earlier in May it was noted that on the stress test his ejection fraction was estimated to 25%. The patient's shortness of breath and dyspnea on exertion are probably multifactorial he does have RSV infection, he is hypoxic, he has COPD and sleep apnea. I would recommend that we trial switching him from metoprolol to Coreg 25 mg twice daily continue his lisinopril and his diuretic therapy and add spironolactone to his medical regimen. His Coreg to be titrated to a blood pressure of around 100 systolic and heart rate 60-100. Once he is titrated to the heart rate and his blood pressure is not adequately controlled lisinopril should be increased as tolerated. Once titrated to maximum tolerated doses after approximately 12 weeks a repeat echocardiogram should be performed. It is possible his LV dysfunction is related to his tachyarrhythmia or alternatively it may be related to his viral infection. Basic metabolic panel needs to be reevaluated and a BNP checked prior to discharge. The patient should be followed up in the [facility] office within a week of discharge. (2) Atrial fibrillation with RVR: PLAN: The patient is in chronic atrial fibrillation by office reports. He was not felt to be ideal candidate for cardioversion he was asymptomatic. The patient is tolerating oral anticoagulation and rate control at this point in time. (3) Chronic anticoagulation: PLAN: Patient will be continued on his chronic oral anticoagulation with Eliquis 5 mg daily. PLAN: Plan 1. DC metoprolol and start Coreg 12.5 twice daily. 2. Start spironolactone 25 mg daily. 3. Titrate lisinopril to blood pressure response as noted above. 4. Once discharged the patient should follow-up in the [facility] within a week. HPI Consult Data Date of Consult: 06/29/23 HPI Narrative Reason for Consultation: New LV dysfunction HPI Narrative: MELE HERNANDEZ, is a 63 M who presents with respiratory distress and hypoxia related to RSV infection, COPD, and newly diagnosed LV dysfunction. The patient carries a history of atrial fibrillation. His heart rate is in the 90-100 range today on telemetry. He originally presented hypoxic with a heart rate in the 114-120 range. The patient had an echo and follow-up of 2022. That echo showed normal LV function and no significant valve disease with normal atrial size and normal RV function. Following the patient's admission with this shortness of breath hypoxia RSV infection and history of COPD and repeat echocardiogram now shows global LV systolic dysfunction with an ejection fraction estimated at 20%. There is mild 1-2+ TR within the right ventricular systolic pressure in the 30s. There is normal RV size with mild global dysfunction. The patient remains on oxygen supplementation. He is up sitting in the chair in his room but noted in the nursing notes and hospitalist report he desaturates with activity. The patient has noted for the last 2 weeks increasing lower extremity edema he reports this started when he was placed on metoprolol. He also noted increased urine output with the Lasix. The patient had a recent stress test which showed no significant ischemic burden. However, it did show his LV dysfunction to be depressed with an EF of 25%. This was May 2023. REPLACED BY [facility] Medical History Arrhythmia Atrial fibrillation BPH (benign prostatic hyperplasia) COPD (chronic obstructive pulmonary disease) COPD exacerbation Coronary artery calcification of [place] artery Encounter for screening for malignant neoplasm of lung in current smoker with 30 pack year history or greater History of back injury Hypertension Obesity Osteoarthritis of right knee Pain in both knees Pain, joint, multiple sites Home Medications lisinopril 20 mg tablet 20 mg PO DAILY #90 tabs 01/14/23 [Rx Last Taken Unknown] albuterol sulfate 2.5 mg/3 mL (0.083 %) solution for nebulization 2.5 mg (3 mL) inhalation Q4H PRN shortness of breath or wheezing #180 mL 03/29/23 [Rx Last Taken Unknown] furosemide 40 mg tablet (Lasix) 40 mg PO DAILY #30 tabs 06/07/23 [Rx Last Taken Unknown] apixaban 5 mg tablet (Eliquis) See Rx Instructions .Route .COMPLEX #180 tabs 06/13/23 [Rx Last Taken Unknown] albuterol sulfate 90 mcg/actuation aerosol inhaler 2 puff PO Q6H PRN PRN for wheezing #9 GMS 06/24/23 [Rx Last Taken Unknown] diltiazem HCl 180 mg capsule,extended release 24 hr (Cartia XT) 180 mg PO DAILY #60 caps 06/28/23 [Rx Last Taken Unknown] guaifenesin 1,200 mg tablet, extended release 12 hr (Mucus Relief ER) 1,200 mg PO BID 10 days #20 tabs 06/28/23 [Rx Last Taken Unknown] levofloxacin 500 mg tablet 500 mg PO DAILY@0600 #5 tabs 06/28/23 [Rx Last Taken Unknown] metoprolol tartrate 50 mg tablet 50 mg PO BID #120 tabs 06/28/23 [Rx Last Taken Unknown] nicotine 21 mg/24 hr daily transdermal patch 21 mg transdermal DAILY #30 ea 06/28/23 [Rx Last Taken Unknown] prednisone 20 mg tablet 20 mg PO BID #14 tabs 06/28/23 [Rx Last Taken Unknown] Allergy/AdvReac Type Severity Reaction Status Date / Time No Known Allergies Allergy Verified 06/25/23 18:06 Family History Brother Asthma Hypertension Mother Arthritis Cancer Social History Smoking Status: Current every day smoker tobacco type: cigarettes Tobacco: How many years used: 43 how long ago did patient quit smoking: 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, 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 alcohol intake: current alcohol intake frequency: a few times a month Alcohol type: beer substance use type: does not use what type of physical activity do you participate in: none ROS Constitutional Constitutional: Reports as per HPI Eyes Eyes: Reports systems reviewed and no addt'l complaints, except as documented ENT HEENT: Reports systems reviewed and no addt'l complaints, except as documented Cardiovascular Cardiovascular: Reports as per HPI; Denies orthopnea Respiratory/Chest Respiratory/Chest: Reports as per HPI Gastrointestinal Gastrointestinal: Reports systems reviewed and no addt'l complaints, except as documented Genitourinary Genitourinary: Reports systems reviewed and no addt'l complaints, except as documented Musculoskeletal Musculoskeletal: Reports systems reviewed and no addt'l complaints, except as documented Integumentary Integumentary: Reports systems reviewed and no addt'l complaints, except as documented Neurologic Neurologic: Reports systems reviewed and no addt'l complaints, except as documented Psychiatric Psychiatric: Reports systems reviewed and no addt'l complaints, except as documented Endocrine Endocrinology: Reports systems reviewed and no addt'l complaints, except as documented Hematologic/Lymphatic Hematologic/Lymphatic: Reports systems reviewed and no addt'l complaints, except as documented Allergic/Immunologic Allergic/Immunologic: Reports systems reviewed and no addt'l complaints, except as documented Physical Exam Const oriented x3 HEENT normocephalic Eyes EOMs intact bilaterally Neck no JVD Carotids: Negative for bruit Chest inspection of chest normal Resp normal respiratory effort Auscultation: crackles bilateral lower and wheezes inspiratory wheezes and right upper Cardio regular rate Cardio Narrative: Very distant heart tones and difficult to auscultate Rhythm: abnormal rhythm irregularly irregular Heart Sounds: S1 normal and S2 normal; Negative for click, gallop or murmur GI soft to palpation Extremity General Extremity: edema bilateral lower extremity Details: moderate Skin no rashes or lesions noted Neuro Neuro Narrative: Alert and oriented x 3 Psych mental status grossly normal Risk Stratification Risk Stratification Applicable: No Charges/Coding Visit Charges Inpatient E&M: 64270 Init Hosp L3 Objective Data Vital Signs: Vital Signs Temp Pulse Resp BP Pulse Ox O2 Del Method O2 Flow Rate 97.8 F 87 16 119/79 89 Nasal Cannula 3 06/29/23 09:23 06/29/23 11:24 06/29/23 11:24 06/29/23 09:25 06/29/23 09:54 06/29/23 09:56 06/29/23 09:56 Oxygen Flow Rate (L/min) [ 4 AMBULATING with Oxygen #3] Oxygen Flow Rate (L/min) [At 3 REST with Oxygen] Oxygen Flow Rate (L/min) [ 3 AMBULATING with Oxygen #2] Oxygen Flow Rate (L/min) [ 2 AMBULATING with Oxygen #1] Oxygen Flow Rate (L/min) 3 Oxygen Delivery Method Nasal Cannula Weight: 279 lb 8.738 oz Body Mass Index (BMI) 37.9 Intake & Output: Intake and Output for Last 24 Hours 06/27/23 06/28/23 06/29/23 23:59 23:59 23:59 Intake Total 451.42 / 656.42 2325.42 / 2325.42 400 / 400 Output Total 1200 / 1925 3200 / 3200 700 / 700 Balance -748.58 / -1268.58 -874.58 / -874.58 -300 / -300 Lab / Micro Data Attestation: I reviewed the patient's lab results. 06/29/23 07:12 06/29/23 07:12 Labs: Laboratory Results - last 24 hr 06/29/23 07:12: WBC 9.5, RBC 5.91, Hgb 18.2 H*, Hct 55.4 H, MCV 93.7, MCH 30.8, MCHC 32.9, RDW Std Deviation 44.1 H, RDW Coeff of Jerson 12.7, Plt Count 211, MPV 12.0, Immature Gran % (Auto) 0.400, Neut % (Auto) 84.7 H, Lymph % (Auto) 12.4 L, [place] % (Auto) 2.3, Eos % (Auto) 0.0, Baso % (Auto) 0.2, Absolute Neuts (auto) 8.0 H, Absolute Lymphs (auto) 1.18, Nucleated RBC % 0, Diff Path Review July, Sodium 137, Potassium 4.0, Chloride 99, Carbon Dioxide 31.0, Anion Gap 7, BUN 36 H, Creatinine 1.12, Estim Creat Clear Calc 94.10, Est GFR (MDRD) Af Amer 85, Est GFR (MDRD) Non-Af 71, BUN/Creatinine Ratio 32.1 H, Glucose 120 H, Calcium 10.0 Rhythm Strip Rhythm Strip: A-fib Rate: 95 Ectopy: None Cardiology Labs/Tests 06/29/23 07:12: WBC 9.5, RBC 5.91, Hgb 18.2 H*, Hct 55.4 H, MCV 93.7, MCH 30.8, MCHC 32.9, Plt Count 211, MPV 12.0, Immature Gran % (Auto) 0.400, Neut % (Auto) 84.7 H, Lymph % (Auto) 12.4 L, [place] % (Auto) 2.3, Eos % (Auto) 0.0, Baso % (Auto) 0.2, Absolute Neuts (auto) 8.0 H, Nucleated RBC % 0, Sodium 137, Potassium 4.0, Chloride 99, Carbon Dioxide 31.0, Anion Gap 7, BUN 36 H, Creatinine 1.12, Est GFR (MDRD) Af Amer 85, Est GFR (MDRD) Non-Af 71, BUN/Creatinine Ratio 32.1 H, Glucose 120 H, Calcium 10.0 Rhythm: EKG: ECHO: Stress Test: Cardiac Cath: PCI: CT Surgery: Holter monitor: EPS: PPM: CXR: Chest CT Scan:
--- NOTE | 2023-06-29 17:00 | CASEMGMT ---
ANTONIO CM Follow-up: Noted order has been placed for discharge. Home O2 qualification testing was completed on this date and pt qualified for home O2 at 2l/min per NC w/exertion. Script completed and submitted with qualification testing to [facility] per pt's DME preference via [employer]. Referral acknowledged as received. Discussed with ANTONIO Johnson. Pt to receive portable O2 tank from floor stock with instructions and pt to call [facility] upon arrival home for home concentrator set-up. Tao Garcias RN [facility]
[2023-06-30 09:40] LABS: Pathologist Review Reviewed
== END 2023-06-29 18:36 | disposition home or self-care (01) | DRG 190 ==
LOC: ED 19:04 → PCU 23:03
PROVIDERS: Internal Medicine; Admitting Provider Internal Medicine; Emergency Provider Emergency Medicine; PCP Internal Medicine; Visit Provider Internal Medicine
DX: J44.1 Chronic obstructive pulmonary disease with (acute) exacerbation (principal); I50.33 Acute on chronic diastolic (congestive) heart failure; E87.1 Hypo-osmolality and hyponatremia; I27.23 Pulmonary hypertension due to lung diseases and hypoxia; B97.4 Respiratory syncytial virus as the cause of diseases classified elsewhere; J44.0 Chronic obstructive pulmonary disease with (acute) lower respiratory infection; I11.0 Hypertensive heart disease with heart failure; I48.0 Paroxysmal atrial fibrillation; I25.10 Atherosclerotic heart disease of native coronary artery without angina pectoris; F17.210 Nicotine dependence, cigarettes, uncomplicated; G47.33 Obstructive sleep apnea (adult) (pediatric); Z68.37 Body mass index [BMI] 37.0-37.9, adult; E66.9 Obesity, unspecified; Z79.01 Long term (current) use of anticoagulants; N40.0 Benign prostatic hyperplasia without lower urinary tract symptoms
CPT/HCPCS: 36415; 71045; 80048; 80053; 80076; 82248; 83735; 83880; 84100; 84443; 84484; 85025; 85610; 85730; 87631; 93005; 93306; 94640; 94668; 94762; 97803; 99285; J7030; J7050; Q9957; A4216; J1940

== ENCOUNTER → 2023-07-08 | Outpatient (CLI) | payer OTHER, SELFPAY ==
--- NOTE | 2023-07-08 08:09 | CR.HP_ITS ---
CR - History & Physical General Arrival date:: 07/08/23 Arrival time:: 08:00 Date of Referral:: 06/30/23 Date of CR Evaluation:: 07/08/23 Referring Physician: Dr. Tanner Damon Primary Diagnosis: HF<35% History of Present Cardiac Event Onset Date Heart Failure EF <35%:: Yes Type of Symptoms:: Family doctor sent the patient to the hospital following EKG and finding a heart murmer. Interventions with present event:: Echocardiagram, stresss test, admitted to the hospital Were there any complications?: no Medications Ambulatory Orders Medication Instructions Recorded lisinopril 20 mg tablet 20 mg PO DAILY #90 tabs 01/14/23 albuterol sulfate 2.5 mg/3 mL 2.5 mg (3 mL) inhalation Q4H PRN 03/29/23 (0.083 %) solution for nebulization shortness of breath or wheezing #180 mL furosemide 40 mg tablet (Lasix) 40 mg PO DAILY #30 tabs 06/07/23 apixaban 5 mg tablet (Eliquis) See Rx Instructions .Route 06/13/23 .COMPLEX #180 tabs albuterol sulfate 90 mcg/actuation 2 puff PO Q6H PRN PRN for wheezing 06/24/23 aerosol inhaler #9 GMS diltiazem HCl 180 mg 180 mg PO DAILY #60 caps 06/28/23 capsule,extended release 24 hr (Cartia XT) guaifenesin 1,200 mg tablet, 1,200 mg PO BID 10 days #20 tabs 06/28/23 extended release 12 hr (Mucus Relief ER) levofloxacin 500 mg tablet 500 mg PO DAILY@0600 #5 tabs 06/28/23 nicotine 21 mg/24 hr daily 21 mg transdermal DAILY #30 ea 06/28/23 transdermal patch prednisone 20 mg tablet 20 mg PO BID #14 tabs 06/28/23 carvedilol 12.5 mg tablet 12.5 mg PO BID #120 tabs 06/29/23 spironolactone 25 mg tablet 25 mg PO DAILY #60 tabs 06/29/23 Allergies Allergies No Known Allergies Allergy (Verified 06/25/23 18:06) Sleep Disorder Evaluation Hx of Sleep Apnea: No Do you snore loudly (louder than talking or can be heard through closed doors)?: Yes Do you often feel tired/ fatigued/ sleepy during daytime?: Yes Has anyone observed you stop breathing during sleep?: No History of Hypertension (for STOP score): Yes STOP Results: Positive Hx COPD Advanced Directives Advanced Directives Power of Assembly Inspector Helper: No Living Will: No Advance Directives Information Provided: Yes Advance Directives on File: No DNR Order?:: No MOLST See MOLST form: No Past Medical History Covid-19 Screening Physicial Symptoms Fever: No Unexplained muscle aches: No Current respiratory symptoms: Yes (Chronic Obstructive Pulmonary Disease (COPD)) Upper respiratory infections symptoms: Yes (Developed RSV during recent hospitalization per patient) Gastro-intestinal symptoms: No Esn-Gvvw-[id number] symptoms: No Other Clinical Concerns Has tested positive for COVID-19 in last 30 days: No Exposure Risk Had contact w/person w/symptoms or Covid-19 (+) last 14 days: No Has High Risk Exposures ID'd by Health dept/Inf Control team: No Pertinent Comorbidities 65 years or older:: No Lives in Assisted Living facility:: No Has a chronic lung disease or moderate to severe asthma:: Yes Has a serious heart condition:: No Immunocompromised:: No Severely obese (Body Mass Index of 40 or higher):: No Diabetic:: No Has chronic kidney disease undergoing dialysis:: No Has liver disease:: No Past Medical Illness Medical History Arrhythmia Atrial fibrillation BPH (benign prostatic hyperplasia) COPD (chronic obstructive pulmonary disease) COPD exacerbation Coronary artery calcification of [place] artery Encounter for screening for malignant neoplasm of lung in current smoker with 30 pack year history or greater History of back injury Hypertension Obesity Osteoarthritis of right knee Pain in both knees Pain, joint, multiple sites Past Surgical History Surgical History: no surgical history Family History Summary Family History Brother Asthma Hypertension Mother Arthritis Cancer Social History Smoking History Smoking Status: Current every day smoker Years Smokin Packs Smoked per Day: 1.5 Hx Smoking Cessation Date: 06/23/23 Hx Tobacco Use: Yes Hx Smoking Exposure: Yes Alcohol Use Alcohol Usage: No Substance Abuse Hx Substance Use: No Occupation Occupation (List type of work in comments):: 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 Patient states [id number]) Pain Level: 10 Risk Factor Assessment Vital Signs Temperature: 97.9 F Respiratory Rate: 20 Pulse Ox: 94 (room air at rest. Does have home oxygen 3 liters) Blood Pressure: 119/79 Pulse Pulse Rate: 74 Pulse Rhythm: Irregular Hypertension How long have you been treated?: a while now Blood Pressure Sitting - Left Arm: 119/79 Diabetes Nutrition Referral for Diabetes: No Obesity Height: 6 ft Weight:: 279 lb Weight in Pounds: 279.0 lbs Weight Source: Stated by Patient Body Mass Index (BMI): 37.8 Nutritional Referral for Obesity: Yes Physical Inactivity Physical Inactivity: None (sedentary lifestyle, over the road back sewer) Exercise Limitations: Bilateral knee pain Risk Stratification Risk Guidelines: Lowest Risk: Risk Factor for Hypertension (119/79), Moderate Risk: Risk Factor for Sedentary Lifestyle and Highest Risk: Risk Factor for Smoking, Risk Factor for Obesity (BMI 37) and Risk Factor for Sedentary Lifestyle For Smoking Smoking Risk Guidelines For Dyslipidemia Dyslipidemia Risk Guidelines For Diabetes Mellitus Diabetes Risk Guidelines For Obesity/Overweight Obesity/Overweight Risk Guidelines For Hypertension Hypertension Risk Guidelines For Sedentary Lifestyle Sedentary Lifestyle Risk Guidelines For Depression Depression Risk Guidelines Family History Family History Brother Asthma Hypertension Mother Arthritis Cancer Motivation Motivation to Participate On a scale of 1 to 10, how prepared are you to commit to attending program?: 7 What do you see as barriers to successfully being able to complete the program?: work- 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 In other words, what do you hope to get out of participating in the program?: Get healthier, off oxygen get back to work. Are there issues you are dealing with that will interfere with completing the program?: BIlateral knee pain Do you have a spouse or signficant other, family or friends who will help support you to complete the program?: Yes
--- NOTE | 2023-07-08 08:10 | PCM.CR.ITP ---
Diagnosis General Information Admitting Diagnosis: HF<35% Secondary Diagnosis: Calcified coronary lesion, unspecified atrial fibrillation, Chronic Obstructive Pulmonary Disease (COPD), HTN, HLD, Obesity Personal Learning Style:: Audio/Visual and Written Barriers to Learning: Vision Impairment Stage of change r/t lifestyle modifications:: Contemplation Gave educational material for:: Treating Heart Disease, How The Heart Works, What it means to have Heart Disease, How Coronary Artery Disease is Diagnosed, Heart Procedures, What Heart Medications Do, Risk Factors & Modifications, Living an Active Life, Nutrition, Emotions & Heart Disease, Stress Management & Relaxation and Sleep Disorders & Heart Disease Education/Goals Individual Counseling: Initial Assessment: Nicotine/Smoking (CUrrently using Nicoderm 21mg patch), Abnormal Cholesterol Levels, High Blood Pressure and Overweight/Obesity (BMI>37) Cardiac Rehabilitation Goals Personal Goals: Initial Assessment: Quit smoking (participate in smoking cessation, Improve energy level, Participate in home exercise program, Get back to work, or to resume activities faster and Improve muscle strength and endurance Scale for measuring improvement of personal goals Diagnosis & Disease Process Outcomes/Goals: Pt IDs own risk factors & lifestyle modifications by Session 10, Verbalizes symptoms of angina & response by session 3. and Pt independently manages Plan/Interventions: Assist Pt to ID & engage in lifestyle modification to reduce CVD risk, Instruct on individual risk factors, Review symptoms of angina & emergency actions and Review secondary diagnosis & identify educational needs. Safety Referral to Physical Therapy: No Referral to [facility] Case Management: No Fall Risk Assessed:: Yes (Patient does have regular but unstable gait due to his knee problems) Assistive Devices:: None (Patient states he does have ioti-ho-init in both knees that he needs replacement. ) Exercise - Initial Assessment Visit Date of Eval: 07/08/23 Session #:: 0 (pre-program evaluation) Mets: Pre-: >5 METS for 30 minutes by discharge Stress Test Protocol:: Lexiscan Resting HR (bpm):: 117 Maximum HR (bpm):: 134 Blood Pressure: 130/72 Maximum Blood Pressure: 138/74 EKG: Atrial fibrillation with peaked ST segment di not meet criteria for ischemia Physician Prescribed Exercise Modalities: Airdyne, NuStep and SciFit Frequency: 3x/week for 12 weeks [36 sessions] Intensity: 60-80% of age predicted maximum heart rate reserve Duration: 30 - 45 minutes Current METSs:: 3.0 Target Heart Rate:: 102-118 Resting Blood Pressure: 119/79 EKG Type: Atrial Fibrillation Outcomes & Goals Goals:: Verbalizes understanding of THR, RPE & goal METS by session 6, Documents in home exercise log/reports 30 min aerobic 5 day/wk by DC and Demonstrates accurate pulse taking by DC Intervention & Plan Exercise Program Goals: Instruct on personal THR & RPE, Instruct on MET level & personal MET goal, Show patient to take own pulse /validate performance until accurate and Instruct on home exercise Physical Activity Home Exercise Physical Activity - Home Exercise: Safe Exercise, Warm-up, Self-monitoring, Cool-Down, Home Exercise > 30 min Daily and Sitting Time <3 hours/daily Outcomes & Goals Outcomes/Goals: Demonstrates correct Warm-up/exercise Cool-Down (S3) if = 2.5 METs, Verbalizes symptoms of exercise intolerance by Session 3 (S3) and Demonstrate safe equipment use (S3) & follows exercise prescrition (6) Intervention & Plan Plan/Intervention: Instruct warm-up & cool-down if exercising at > 2 METs, Instruct on symptoms of exercise intolerance & actions to take, Instruct & monitor on saf and Assess intial functional capacity & safety risk Nutrition - Initial Assessment Program Goals Nutrition Program Goals Patient has diagnosis of Hyperlipidemia (ICD E78)?: Yes Visit Date of Eval: 07/08/23 Session #:: 0 (Pre-program evaluation) Cholesterol/Lipids (Other Core Measures) Determine presence & major risk factors that modify LDL goal: Cigarette smoking, Hypertension or hypertensive medication and Age men > 45 years; women >/= 55 years Outcomes/Goals: Pt IDs own risk factors & lifestyle modifications by Session 10, Verbalizes symptoms of angina & response by session 3. and Pt independently manages Intervention/Plan: Instruct on personal lipid levels & lipid goals/NCEP guidelines and Instruct on cholesterol Diabetes (Other Core Measures) Diabetes Type: Not Applicable Weight Mgt (Other Care) Not Applicable: Yes Height: 6 ft Weight:: 279 lb BMI: 37.8 Diagnosis Overweight/Obesity BMI> 30% ICD-10 E66: Yes Diagnosis High BMI/Morbid Obesity BMI> 35% ICD-10 Z68: Yes Outcomes/Goals: Pt sets, maintains & shows weight loss goal & trend during rehab Intervention/Plan: Instruct on ideal BMI & set weight loss goal w/patient, Assist pt to ID & incorporate diet changes for weight loss by S9, Refer to Structured Weight Loss program as appropriate and Encourage goal of using 250-300dcal per session for weight loss Healthy Eating Habits Will attend diet classes:: Yes Outcomes/Goals:: Consume diet rich in vegs,fruits,whole grain/high fiber,fish,lean meat and Limit sat/trans fats,cholesterol & added salts & sugars Intervention/Plan:: Assess current eating habits Education Gave educational materials for:: Healthy eating Core - Initial Assessment Visit Date of Eval: 07/08/23 Session #:: 0 (Pre-program evaluation) Medication Compliance Preventative Medication(s):: Aspirin, Beta patrick and Eliquis H/O mental health issues: depression, anxiety, or addiction?: Yes Doesn?t believe in the benefits of treatment?: No Believes medications are unnecessary or harmful?: No Has a concern about medication side effects?: No Expresses concern over the cost of medications?: No Outcomes/Goals: Verbalizes medications,desired effect & common side effects @ DC, Pt self-reports following medication regimen and Keeps card in wallet w/medications listed by DC Interventions/plans: Instruct on medication effects & side effects, Review medication list w/patient every two weeks and Instruct importance of taking meds as ordered & assist problem solving Tobacco Use Tobacco Use: Cigarettes How long ago did you quit using tobacco products?: Less than 6 months ago How many cigarettes do you smoke per day?: 30 Years Smokin Do you use smokeless tobacco?: No Outcomes/Goals: Smoking cessation achieved or maintained by discharge and Identify aids/strategies for achieving smoking cessation by session 6 Interventions/plan: Instruct on effects of smoking & provide smoking cessation resource, Assist pt to develop strategies to achieve/maintain quit date and Assist pt w/nicotine replacement & medication for cessation success Comments:: Patient currently quit smoking at the time of discharge and is using the nicoderm 21mg patch, for two weeks now he has not smoked Hypertension Hypertension Diagnosis:: Hypertension ICD-10 I10 Resting Blood Pressure:: 119/79 [place] [employer] Hypertension Guidelines Outcomes/Goals: Able to verbalize/achieve optimal blood pressure <130/80 and Incorporates diet changes & exercise for blood pressure control by DC Interventions/plan: Instruct on optimal blood pressure, hypertension & medications and Instruct on effects of sodium, alcohol, stress, exercise &hypertension Tobacco Cessation Referral Smoking Cessation Referral:: Yes Individual Education/Counseling:: Yes Education Schedule Given:: Yes Psychosocial - Initial Assess VIsit Date of Eval: 07/08/23 Session #:: 0 (pre-program evaluation) Not Applicable: Yes Target Goals Target Goals Psychosocial Test Tool Used:: Porfirio Thornton QOL Cardiac and PHQ-9 Questionnaire phq-9 Severity Referral to Behavioral Health PS - Interventions: Yes: Attend Stress Management Classes and No: Referral to Behavioral Health if PHQ-9 score >9:, No: Referral to [facility] and No: Referral to Physician if PHQ-9 if score is 5-9: Outcomes/Goals: See list Psychosocial Outcomes/Goals:: ID's personal stressors & 2 strategies to manage stress by discharge Intervention/Plan: See List Interventions/Plan:: Assess stressors,coping strategies & signs of derpression on admission, Instruct/assist pt to develop coping & personal stress Mgt strategies, Instruct patient to recognize signs & symptoms of depression and Instruct patient to recog Patient Health Questionnaire PHQ-9 Screening Initial Assessment: 1. Little interest or pleasure in doing things: More than half the days 2. Feeling down, depressed, or hopeless: Not at all 3. Trouble falling or staying asleep, or sleeping too much: More than half the days 4. Feeling tired or having little energy: Nearly every day 5. Poor appetite or overeating: More than half the days 6. Feeling bad about yourself -- or that you are a failure or have let yourself or your family down: Not at all 7. Trouble concentrating on things, such as reading the newspaper or watching television: Not at all 8. Moving or speaking so slowly that other people could have noticed. Or the opposite - being so fidgety or restless that you have been moving around a lot more than usual: Not at all 9. Thoughts that you would be better off , or of hurting yourself in some way: Not at all How difficult have these problems made it for you to do your work, take care of things at home, or get along with other people?: Somewhat difficult Total Score: 9 MUKEHS-Q SV Test Statements CAD is a disease of the arteries in the heart: False Examples of risk factors for heart disease: True Angina is chest pain or discomfort: True The benefits of resistance training include: True Eating more meat and dairy products: I Don't Know Anti-platelet medications such as aspirin are important: I Don't Know The only effective way to manage stress: False An exercise warm-up slowly increases heart rate: I Don't Know Prepared, processed foods usually have high sodium: True Depression is common after a heart attack: I Don't Know The statin medications lower cholesterol: I Don't Know To control blood pressure, lower the amount of sodium: True If someone gets chest discomfort during walking: False Transfats are partially hydrogenated vegetable oils: I Don't Know Sleep apnea that is not treated increases the risk: I Don't Know To control cholesterol, one should become a vegetarian: False Someone knows if he/she is exercising at the right level: I Don't Know Diabetes cannot be prevented with exercise & health eating: False Stress is a large risk for heart attack: I Don't Know A diet that can help lower blood pressure is rich in: True Total Score Total Correct Responses: 11 Self-Efficacy 6-Item Scale Initial Assessment: We would like to know how confident you are in doing certain activities. Please select your confidence level for: Fatigue Select Number: 1 Physical Discomfort or Pain Select Number: 1 Emotional Distress Select Number: 4 Other Symptoms or Health Problems Select Number: 1 Different Tasks and Activities Select Number: 6 Medication Select Number: 8 Total Score:: 3 Nutrition Survey Nutrition Survey Instructions Scoring Instructions Nutrition Survey Initial: Have you lost >10 lbs over the past 2 months without trying?: No Are you following a special diet at home for diabetes, low fat, or low salt?: No Are you interested in meeting with a dietitian for help understanding your diet?: Yes Do you eat less than 3 meals a day?: Yes Do you eat fatty meats (mccallum, sausage, ribs, etc), fried foods, desserts, large amounts of salad dressings, margarine, butter, or cheese most days?: Yes Do you have food allergies? [Enter types in comment field]: No Do you eat in restaurants more than 3 times a week?: No Do you season food with salt, seasoning salt, or garlic salt?: Yes Do you used canned, boxed, frozen meals, or soups, seasoning packets?: No Total Score:: 4 Exercise - 30-day Assessment Stress Test Maximum Blood Pressure: 138/74 Exercise - Final/Discharge Physician Prescribed Exercise Modalities: Airdyne, NuStep and SciFit Frequency: 3x/week for 12 weeks [36 sessions] Intensity: 60-80% of age predicted maximum heart rate reserve Current METSs:: 3.0 Target Heart Rate:: 102-118 Nutrition - 30-Day Assessment Weight Mgt (Other Care) Height: 6 ft Weight:: 279 lb BMI: 37.8 Nutrition - 60-Day Assessment Weight Mgt (Other Care) Height: 6 ft Weight:: 279 lb BMI: 37.8 Core - 30-Day Assessment Visit Session #:: 0 (pre-program evaluation) Tobacco Use Years Smokin Core - Final Assessment Hypertension Resting Blood Pressure:: 119/79 [place] [employer] Hypertension Guidelines Core - 60-Day Assessment Hypertension Resting Blood Pressure:: 119/79 [place] [employer] Hypertension Guidelines Psychosocial - 30-Day Assess Target Goals Target Goals Referral to Behavioral Health PS - Interventions: Yes: Attend Stress Management Classes and No: Referral to Behavioral Health if PHQ-9 score >9:, No: Referral to [facility] and No: Referral to Physician if PHQ-9 if score is 5-9: Psychosocial - 60-Day Assess Target Goals Target Goals Referral to Behavioral Health PS - Interventions: Yes: Attend Stress Management Classes and No: Referral to Behavioral Health if PHQ-9 score >9:, No: Referral to [facility] and No: Referral to Physician if PHQ-9 if score is 5-9: Psychosocial - 90-Day Assess Target Goals Target Goals Referral to Behavioral Health PS - Interventions: Yes: Attend Stress Management Classes and No: Referral to Behavioral Health if PHQ-9 score >9:, No: Referral to [facility] and No: Referral to Physician if PHQ-9 if score is 5-9: Psychosocial - Final Assessmen Target Goals Target Goals Referral to Behavioral Health PS - Interventions: Yes: Attend Stress Management Classes and No: Referral to Behavioral Health if PHQ-9 score >9:, No: Referral to [facility] and No: Referral to Physician if PHQ-9 if score is 5-9: Nutrition - 90-Day Assessment Weight Mgt (Other Care) Height: 6 ft Weight:: 279 lb BMI: 37.8 Nutrition - Final Assessment Program Goals Patient has diagnosis of Hyperlipidemia (ICD E78)?: Yes Weight Mgt (Other Care) Height: 6 ft Weight:: 279 lb BMI: 37.8
[2023-07-08 08:42] VITALS: BP 119/79; BP 130/72; BMI 37.8
[2023-07-08 08:45] VITALS: BP 119/79; PULSE 74; RESP 20; TEMP 36.6; O2SAT 94; BMI 37.8
== END | disposition home or self-care (01) ==
LOC: CR 08:02
PROVIDERS: PCP Internal Medicine; Referring Provider Internal Medicine Cardiovascular Disease; Visit Provider Internal Medicine Cardiovascular Disease
DX: I25.10 Atherosclerotic heart disease of native coronary artery without angina pectoris (principal); I50.20 Unspecified systolic (congestive) heart failure; J44.1 Chronic obstructive pulmonary disease with (acute) exacerbation; I48.91 Unspecified atrial fibrillation; R94.30 Abnormal result of cardiovascular function study, unspecified; I25.84 Coronary atherosclerosis due to calcified coronary lesion; R09.02 Hypoxemia; B33.8 Other specified viral diseases

== ENCOUNTER 2023-07-25 09:30 | Outpatient (RCR) | payer OTHER, SELFPAY ==
[2023-07-08 08:42] VITALS: BMI 37.8
== END 2023-07-26 23:59 ==
LOC: CR 09:30
PROVIDERS: PCP Internal Medicine; Referring Provider Internal Medicine Cardiovascular Disease; Visit Provider Internal Medicine Cardiovascular Disease
DX: R94.30 Abnormal result of cardiovascular function study, unspecified (principal); I50.20 Unspecified systolic (congestive) heart failure; I25.10 Atherosclerotic heart disease of native coronary artery without angina pectoris; I25.84 Coronary atherosclerosis due to calcified coronary lesion; I48.91 Unspecified atrial fibrillation; J44.1 Chronic obstructive pulmonary disease with (acute) exacerbation; R09.02 Hypoxemia; B33.8 Other specified viral diseases
CPT/HCPCS: 93798

== ENCOUNTER → 2023-07-29 | Outpatient (CLI) | payer OTHER, SELFPAY ==
[2023-07-08 08:42] VITALS: BMI 37.8
[2023-07-29 16:19] LABS: Absolute Neutrophil Count 5.4 X10^3/uL (2.0-7.7); Basophil# 0.03 X10^3/uL; Basophil% 0.3 % (0-1); Hematocrit 45.6 % (40-54); Hemoglobin 15.3 g/dL (13.0-16.5); Lymphocyte % 31.1 % (19-41); Mean Corp Hgb Conc 33.6 g/dL (32-36); Mean Corpuscular Hgb 30.4 pg (27.0-32.0); Mean Corpuscular Volume 90.5 fL (80-94); Mean Platelet Vol. 10.4 fl (6.2-12.0); Monocyte# 0.51 X10^3/uL; Monocyte% 5.9 % (0-10); NRBC Flagged by Analyzer 0 % (0-5); Neutrophil # 5.39 X10^3/uL (2.7-7.7); Neutrophil % 62.1 % (47-70); Platelet Count 321 K/mm3 (150-450); RBC Distribution Width CV 12.7 % (11.6-14.6); RBC Distribution Width SD 41.5 fl (35.1-43.9); Red Blood Count 5.04 M/mm3 (4.6-6.2); White Blood Count 8.7 K/mm3 (4.4-11.0)
[2023-07-29 16:58] LABS: ALB/GLOB Ratio 0.8 RATIO (0.9-2.4); AST(SGOT) 19 U/L (15-37); Alanine Aminotransfer ALT/SGPT 29 U/L (16-61); Alkaline Phosphatase 91 U/L (45-117); Anion Gap 5 (5-15); BUN 14 mg/dL (7-18); BUN/Creat Ratio 13.6 RATIO (10-20); Calcium,Total 9.5 mg/dL (8.5-10.1); Chloride 107 mmol/L (98-107); Creatinine, Serum 1.03 mg/dL (0.70-1.30); EST Glomerular Filtration Rate 78 mL/min (>60); Est Glom Filt Rate - Afr Amer 94 mL/min (>60); Glucose 96 mg/dL (74-106); Potassium 4.2 mmol/L (3.5-5.1); Sodium Level 139 mmol/L (136-145)
== END | disposition home or self-care (01) ==
LOC: BIMLAB 15:46
PROVIDERS: PCP Internal Medicine; Visit Provider Internal Medicine
DX: I10 Essential (primary) hypertension (principal)
CPT/HCPCS: 36415; 80053; 85025

== ENCOUNTER 2023-08-26 09:30 | Outpatient (RCR) | payer OTHER, SELFPAY ==
[2023-07-08 08:42] VITALS: BMI 37.8
--- NOTE | 2023-08-03 08:45 | CR.ITP_ITS ---
Exercise - Initial Assessment Visit Session #:: 10 Nutrition - Initial Assessment Weight Mgt (Other Care) Height: 6 ft Weight:: 282 lb 8 oz BMI: 38.2 Core - Initial Assessment Tobacco Use Years Smokin Psychosocial - Initial Assess Target Goals Target Goals Patient Health Questionnaire PHQ-9 Screening 30-Day Re-eval Assessment: 1. Little interest or pleasure in doing things: More than half the days 2. Feeling down, depressed, or hopeless: Not at all 3. Trouble falling or staying asleep, or sleeping too much: More than half the days 4. Feeling tired or having little energy: Nearly every day 5. Poor appetite or overeating: More than half the days 6. Feeling bad about yourself -- or that you are a failure or have let yourself or your family down: Not at all 7. Trouble concentrating on things, such as reading the newspaper or watching television: Not at all 8. Moving or speaking so slowly that other people could have noticed. Or the opposite - being so fidgety or restless that you have been moving around a lot more than usual: Not at all 9. Thoughts that you would be better off , or of hurting yourself in some way: Not at all How difficult have these problems made it for you to do your work, take care of things at home, or get along with other people?: Somewhat difficult Total Score: 9 Self-Efficacy 6-Item Scale 30-Day Re-eval Assessment: We would like to know how confident you are in doing certain activities. Please select your confidence level for: Fatigue Select Number: 1 Physical Discomfort or Pain Select Number: 1 Emotional Distress Select Number: 4 Other Symptoms or Health Problems Select Number: 1 Different Tasks and Activities Select Number: 6 Medication Select Number: 8 Total Score:: 3 Nutrition Survey Nutrition Survey Instructions Scoring Instructions Exercise - 30-day Assessment Visit Date of Eval: 08/03/23 Session #:: 10 Physician Prescribed Exercise Modalities: Airdyne, NuStep and SciFit Frequency: 3x/week for 12 weeks [36 sessions] Intensity: 60-80% of age predicted maximum heart rate reserve Duration: 30 - 45 minutes Current METSs:: 3.5 Target Heart Rate:: 118-134 Current RPE:: 11-12 Maximum Excercise HR:: 104 Resting Blood Pressure: 98/52 Maximum Exercise Blood Pressure: 110/58 EKG Type: A-fib with rare PVC Outcomes & Goals Goals:: Verbalizes understanding of THR, RPE & goal METS by session 6, Documents in home exercise log/reports 30 min aerobic 5 day/wk by DC, Demonstrates accurate pulse taking by DC and Other additional outcome/goals: see below Intervention & Plan Exercise Program Goals: Instruct on personal THR & RPE, Instruct on MET level & personal MET goal, Show patient to take own pulse /validate performance until accurate, Instruct on home exercise and Other additional plan/int 30-day Reassessments 30 day Reassessments:: Progressing Reassessment Notes & Comments:: RPE explained Physical Activity Home Exercise Physical Activity - Home Exercise: Safe Exercise, Warm-up, Self-monitoring, Cool-Down, Home Exercise > 30 min Daily and Sitting Time <3 hours/daily Outcomes & Goals Outcomes/Goals: Demonstrates correct Warm-up/exercise Cool-Down (S3) if = 2.5 METs, Verbalizes symptoms of exercise intolerance by Session 3 (S3), Demonstrate safe equipment use (S3) & follows exercise prescrition (6) and Other: See below Intervention & Plan Plan/Intervention: Instruct warm-up & cool-down if exercising at > 2 METs, Instruct on symptoms of exercise intolerance & actions to take, Instruct & monitor on saf, Assess intial functional capacity & safety risk and Other See below 30-day Reassessments 30 day Reassessments:: Progressing Reassessment Notes & Comments:: warm up encouraged Nutrition - 30-Day Assessment Program Goals Nutrition Program Goals Patient has diagnosis of Hyperlipidemia (ICD E78)?: Yes Visit Date of Eval: 08/03/23 Session #:: 10 Cholesterol/Lipids (Other Core Measures) Determine presence & major risk factors that modify LDL goal: Cigarette smoking, Hypertension or hypertensive medication, Low HDL cholesterol <40 mg/dL*, Family history of premature CHD in Male < 55 years: female <65 yearsFa and Age men > 45 years; women >/= 55 years Outcomes/Goals: Pt IDs own risk factors & lifestyle modifications by Session 10, Verbalizes symptoms of angina & response by session 3., Pt independently manages and Other Additional Outcomes/Goals: Intervention/Plan: Advocate for lipid panel cholesterol medication if applicable, Instruct on personal lipid levels & lipid goals/NCEP guidelines, Instruct on cholesterol and Other additional plan/int 30-day Reassessments:: Progressing Reassessment Notes & Comments:: risk factors reviewed Diabetes (Other Core Measures) Diabetes Type: Not Applicable Weight Mgt (Other Care) Height: 6 ft Weight:: 282 lb 8 oz BMI: 38.2 Diagnosis Overweight/Obesity BMI> 30% ICD-10 E66: Yes Diagnosis High BMI/Morbid Obesity BMI> 35% ICD-10 Z68: Yes Outcomes/Goals: Pt sets, maintains & shows weight loss goal & trend during rehab and Other additional outcomes/goals Intervention/Plan: Instruct on ideal BMI & set weight loss goal w/patient, Assist pt to ID & incorporate diet changes for weight loss by S9, Refer to Structured Weight Loss program as appropriate, Encourage goal of using 250- 300dcal per session for weight loss and Other additional plan/interventions 30 day Reassessments:: Progressing Reassessment Notes & Comments:: pt to attend nutrition class Healthy Eating Habits Will attend diet classes:: Yes Outcomes/Goals:: Consume diet rich in vegs,fruits,whole grain/high fiber,fish,lean meat, Limit sat/trans fats,cholesterol & added salts & sugars and Other additional outcome/goals: Intervention/Plan:: Assess current eating habits and Other Additional plan/interventions 30-day Reassessments:: Progressing Reassessment Notes & Comments:: pt to attend nutrition class Education Gave educational materials for:: Signs & symptoms of hypoglycemia, Signs & symptoms of hyperglycemia, Relate diabetes to coronary artery disease and Healthy eating Nutrition - 60-Day Assessment Weight Mgt (Other Care) Height: 6 ft Weight:: 282 lb 8 oz BMI: 38.2 Core - 30-Day Assessment Visit Date of Eval: 08/03/23 Session #:: 10 Medication Compliance Preventative Medication(s):: Aspirin, Beta patrick and Eliquis H/O mental health issues: depression, anxiety, or addiction?: Yes Doesn?t believe in the benefits of treatment?: No Believes medications are unnecessary or harmful?: No Has a concern about medication side effects?: No Expresses concern over the cost of medications?: No Outcomes/Goals: Verbalizes medications,desired effect & common side effects @ DC, Pt self-reports following medication regimen, Keeps card in wallet w/medications listed by DC and Other additional outcome/goals: Interventions/plans: Instruct on medication effects & side effects, Review medic ation list w/patient every two weeks, Instruct importance of taking meds as ordered & assist problem solving and Other additional 30-day Reassessments:: Progressing Reassessment Notes & Comments:: encouraged to take meds Tobacco Use Tobacco Use: Cigarettes How long ago did you quit using tobacco products?: Less than 6 months ago How many cigarettes do you smoke per day?: 30 Years Smokin Do you use smokeless tobacco?: No Outcomes/Goals: Smoking cessation achieved or maintained by discharge, Identify aids/strategies for achieving smoking cessation by session 6 and Other a dditional outcome/goals Interventions/plan: Instruct on effects of smoking & provide smoking cessation resource, Assist pt to set quit date & provide encouragement, Assist pt to develop strategies to achieve/maintain quit date, Assist pt w/nicotine replacement & medication for cessation success and Other additional plan/interventions 30-day Reassessments:: Progressing Reassessment Notes & Comments:: using nicoderm patch and not smoking Hypertension Hypertension Diagnosis:: Hypertension ICD-10 I10 Resting Blood Pressure:: 98/52 [place] [employer] Hypertension Guidelines Peak Exercise Blood Pressure:: 110/58 Outcomes/Goals: Able to verbalize/achieve optimal blood pressure <130/80, Incorporates diet changes & exercise for blood pressure control by DC and Other additional outcomes/goals Interventions/plan: Instruct on optimal blood pressure, hypertension & medications, Instruct on effects of sodium, alcohol, stress, exercise &hypertension and Other additional plan/interventions 30 day Reassessments:: Met Tobacco Cessation Referral Smoking Cessation Referral:: Yes Individual Education/Counseling:: Yes Education Schedule Given:: Yes Psychosocial - 30-Day Assess VIsit Date of Eval: 08/03/23 Session #:: 10 Not Applicable: Yes Target Goals Target Goals Outcomes/Goals: See list Psychosocial Outcomes/Goals:: ID's personal stressors & 2 strategies to manage stress by discharge and Other Additional outcome/goals: 30-day Reassessments: 30 day Reassessments:: Met Psychosocial - 60-Day Assess Target Goals Target Goals Outcomes/Goals: See list Psychosocial Outcomes/Goals:: ID's personal stressors & 2 strategies to manage stress by discharge and Other Additional outcome/goals: Psychosocial - 90-Day Assess Target Goals Target Goals Psychosocial - Final Assessmen Target Goals Target Goals Nutrition - 90-Day Assessment Weight Mgt (Other Care) Height: 6 ft Weight:: 282 lb 8 oz BMI: 38.2 Nutrition - Final Assessment Weight Mgt (Other Care) Height: 6 ft Weight:: 282 lb 8 oz BMI: 38.2
[2023-08-03 08:50] VITALS: BP 98/52
[2023-08-03 09:01] VITALS: BP 98/52; BMI 38.2
== END 2023-08-26 23:59 ==
LOC: CR 09:30
PROVIDERS: PCP Internal Medicine; Referring Provider Internal Medicine Cardiovascular Disease; Visit Provider Internal Medicine Cardiovascular Disease
DX: R94.30 Abnormal result of cardiovascular function study, unspecified (principal); I50.20 Unspecified systolic (congestive) heart failure; I25.10 Atherosclerotic heart disease of native coronary artery without angina pectoris; I25.84 Coronary atherosclerosis due to calcified coronary lesion; I48.91 Unspecified atrial fibrillation; J44.1 Chronic obstructive pulmonary disease with (acute) exacerbation; R09.02 Hypoxemia; B33.8 Other specified viral diseases
CPT/HCPCS: 93798

== ENCOUNTER 2023-09-05 09:30 | Outpatient (RCR) | payer OTHER, SELFPAY ==
[2023-08-03 09:01] VITALS: BMI 38.2
[2023-08-27 00:50] VITALS: BP 98/52
== END 2023-09-25 23:59 ==
LOC: CR 09:30
PROVIDERS: PCP Internal Medicine; Referring Provider Internal Medicine Cardiovascular Disease; Visit Provider Internal Medicine Cardiovascular Disease
DX: R94.30 Abnormal result of cardiovascular function study, unspecified (principal); I50.20 Unspecified systolic (congestive) heart failure; I25.10 Atherosclerotic heart disease of native coronary artery without angina pectoris; I25.84 Coronary atherosclerosis due to calcified coronary lesion; I48.91 Unspecified atrial fibrillation; J44.1 Chronic obstructive pulmonary disease with (acute) exacerbation; R09.02 Hypoxemia; B33.8 Other specified viral diseases
CPT/HCPCS: 93798

== ENCOUNTER → 2023-09-12 | Outpatient (CLI) | payer OTHER, SELFPAY ==
[2023-08-03 09:01] VITALS: BMI 38.2
--- NOTE | 2023-09-12 07:36 | ECHOD_ITS ---
Reason For Study: VILLAREAL Procedure This was a 2D Doppler, Color Flow transthoracic echocardiogram. Exam performed in department. Left Ventricle Normal LV size. The estimated ejection fraction is 45 %. There is mild global hypokinesis of the left ventricle. Right Ventricle Normal RV size. Normal systolic function. Atria The left atrium is moderately enlarged. Normal right atrium. Mitral Valve Normal mitral valve. Tricuspid Valve Normal tricuspid valve. Aortic Valve Trisinus/trileaflet aortic valve. Pulmonic Valve Normal pulmonic valve. Great Vessels Normal aortic root. The pulmonary artery is normal size. Normal inferior vena cava. Pericardium/Pleural No pericardial effusion. MMode/2D Measurements & Calculations Ao root diam: 3.7 cm LAV(MOD-bp): 84.9 ml LVAd ap4: 36.8 cm2 LAV(MOD-bp) Indexed: 34.5 ml/m2 LVLd ap4: 8.8 cm LAV(MOD-sp2): 77.5 ml EDV(MOD-sp4): 125.2 ml LAV(MOD-sp4): 73.3 ml EDV(sp4-el): 130.7 ml LVAs ap4: 25.3 cm2 LVLs ap4: 7.6 cm ESV(MOD-sp4): 73.8 ml ESV(sp4-el): 71.5 ml EF(MOD-sp4): 41.0 % EF(sp4-el): 45.3 % SV(MOD-sp4): 51.3 ml SV(sp4-el): 59.2 ml LA A4 area: 25.9 cm2 LA dimension(2D): 5.4 cm RA A4 area: 21.5 cm2 TAPSE: 2.4 cm Doppler Measurements & Calculations MV E max alysia: 84.7 cm/sec Ao V2 max: 96.5 cm/sec LV V1 max: 87.7 cm/sec Ao max P.7 mmHg LV V1 max P.1 mmHg Ao V2 mean: 64.4 cm/sec LV V1 mean P.6 mmHg Ao mean P.0 mmHg LV V1 mean: 59.4 cm/sec Ao V2 VTI: 21.6 cm LV V1 VTI: 18.8 cm AV (velocity ratio): 0.87 PA V2 max: 88.1 cm/sec PA V2 mean: 64.1 cm/sec ECHO/Echo Complete Interpretation Summary Normal LV size. The estimated ejection fraction is 45 %. There is mild global hypokinesis of the left ventricle. The left atrium is moderately enlarged. Ordering Physician: Maribel Sears Referring Physician: Maribel Sears Performed By: Britt Angeles RCS
== END | disposition home or self-care (01) ==
LOC: CVS 07:33
PROVIDERS: PCP Internal Medicine; Referring Provider Physician Assistant Medical; Visit Provider Physician Assistant Medical
DX: R06.09 Other forms of dyspnea (principal); I42.0 Dilated cardiomyopathy
CPT/HCPCS: 93306

== ENCOUNTER → 2023-10-28 | Outpatient (CLI) | payer OTHER, SELFPAY ==
[2023-08-03 09:01] VITALS: BMI 38.2
== END | disposition home or self-care (01) ==
LOC: SL 19:39
PROVIDERS: PCP Internal Medicine; Referring Provider Physician Assistant Medical; Visit Provider Physician Assistant Medical
DX: G47.33 Obstructive sleep apnea (adult) (pediatric) (principal)
CPT/HCPCS: 95811

== ENCOUNTER → 2024-02-07 | Outpatient (CLI) | payer OTHER, SELFPAY ==
[2023-08-03 09:01] VITALS: BMI 38.2
== END | disposition home or self-care (01) ==
LOC: CT 12:51
PROVIDERS: PCP Internal Medicine; Referring Provider Nurse Practitioner Family; Visit Provider Nurse Practitioner Family
DX: Z12.2 Encounter for screening for malignant neoplasm of respiratory organs (principal); Z87.891 Personal history of nicotine dependence
CPT/HCPCS: 71271

== ENCOUNTER → 2024-04-27 | Outpatient (CLI) | payer OTHER, SELFPAY ==
[2023-08-03 09:01] VITALS: BMI 38.2
[2024-04-27 17:04] LABS: AST(SGOT) 21 U/L (15-37); Alanine Aminotransfer ALT/SGPT 28 U/L (16-61); Albumin, Serum 3.9 g/dL (3.2-5.0); Alkaline Phosphatase 118 U/L (45-117); Anion Gap 7 (5-15); BUN 16 mg/dL (7-18); BUN/Creat Ratio 13.7 RATIO (10-20); Calcium,Total 10.2 mg/dL (8.5-10.1); Chloride 105 mmol/L (98-107); Creatinine, Serum 1.17 mg/dL (0.70-1.30); EST Glomerular Filtration Rate 67 mL/min (>60); Est Glom Filt Rate - Afr Amer 81 mL/min (>60); Globulin 3.9 g/dL (2.2-4.2); Glucose 67 mg/dL (74-106); Potassium 4.6 mmol/L (3.5-5.1); Protein, Total 7.8 g/dL (6.4-8.2); Sodium Level 138 mmol/L (136-145)
== END | disposition home or self-care (01) ==
LOC: BIMLAB 14:26
PROVIDERS: PCP Internal Medicine; Referring Provider Internal Medicine; Visit Provider Internal Medicine
DX: R06.09 Other forms of dyspnea (principal); I10 Essential (primary) hypertension
CPT/HCPCS: 36415; 80053

== ENCOUNTER → 2024-06-29 | Outpatient (CLI) | payer BC, SELFPAY ==
[2023-08-03 09:01] VITALS: BMI 38.2
[2024-06-29 18:11] LABS: Basophil# 0.03 X10^3/uL; Basophil% 0.3 % (0-1); Eosinophil# 0.31 X10^3/uL; Eosinophils% 3.5 % (0-5); Hematocrit 43.6 % (40-54); Hemoglobin 14.6 g/dL (13.0-16.5); Lymphocyte % 33.8 % (19-41); Mean Corp Hgb Conc 33.5 g/dL (32-36); Mean Corpuscular Hgb 31.5 pg (27.0-32.0); Mean Corpuscular Volume 94.2 fL (80-94); Mean Platelet Vol. 11.5 fl (6.2-12.0); Monocyte# 0.54 X10^3/uL; Monocyte% 6.1 % (0-10); NRBC Flagged by Analyzer 0 % (0-5); Neutrophil # 4.97 X10^3/uL (2.7-7.7); Neutrophil % 56.1 % (47-70); Platelet Count 265 K/mm3 (150-450); RBC Distribution Width CV 12.1 % (11.6-14.6); Red Blood Count 4.63 M/mm3 (4.6-6.2); White Blood Count 8.9 K/mm3 (4.4-11.0)
[2024-06-29 18:32] LABS: Anion Gap 11 (5-15); BUN 14 mg/dL (4-19); BUN/Creat Ratio 14.6 RATIO (10-20); Calcium,Total 10.3 mg/dL (7.6-11.0); Carbon Dioxide 24.7 mmol/L (21.0-32.0); Chloride 105 mmol/L (98-108); Cholesterol 122 mg/dL (<=200); Creatinine, Serum 0.96 mg/dL (0.70-1.20); EST Glomerular Filtration Rate 89 (>60); Glucose 89 mg/dL (70-99); High Density Lipoprotein 32 mg/dL; Low Density Lipoprotein Calc. 69 mg/dL; PSA,Total - Annual Screen 0.12 ng/mL (0.02-4.00); Potassium 4.3 mmol/L (3.3-5.1); Sodium Level 141 mmol/L (133-145); Triglycerides 106 mg/dL; Very Low Density Lipoprotein 21 mg/dL (5-40); cholesterol:hdl ratio screen 3.86
== END | disposition home or self-care (01) ==
LOC: BIMLAB 15:35
PROVIDERS: PCP Internal Medicine; Referring Provider Internal Medicine; Visit Provider Internal Medicine
DX: I10 Essential (primary) hypertension (principal); I48.91 Unspecified atrial fibrillation; Z12.5 Encounter for screening for malignant neoplasm of prostate
CPT/HCPCS: 36415; 80048; 80061; 84153; 85025; G0103

== ENCOUNTER → 2025-02-26 | Outpatient (CLI) | payer BC, SELFPAY ==
[2023-08-03 09:01] VITALS: BMI 38.2
--- NOTE | 2025-02-26 13:30 | CT_ITS ---
PROCEDURE: LOW DOSE CT LUNG SCREENING 02/26/2025 REASON FOR EXAM: LUNG CANCER SCREENING Former smoker. Patient has smoked 2 packs per day for 42 years. Emphysema and hypertension. TECHNIQUE: Procedure Code: [id number] Modality: CT Procedure: LOW DOSE CT LUNG SCREENING Coronal and Sagittal reconstruction series were provided. One or more dose reduction techniques were used (e.g., Automated exposure control, adjustment of the mA and/or kV according to patient size, use of iterative reconstruction technique). REFERENCE LINK: [employer] Lung-RADS RADIATION DOSE SUMMARY: CTDlvol: 4.02 mGy DLP: 149.99 mGycm COMPARISON: February 07, 2024. FINDINGS: PULMONARY NODULES: (Only nodules >3mm are reported) Nodules described below are on series 1 unless otherwise specified. Pulmonary Nodules: No suspicious nodule seen. Hardware:None Lymph Nodes:No suspicious lymph nodes are seen. Heart and Vasculature:Coronary artery calcifications are noted.Atherosclerotic calcifications of the thoracic aorta. Thoracic aorta and pulmonary arteries have normal contours; noncontrast technique limits evaluation. Coronary Artery Calcifications: Present Lungs and Airways: Mild emphysematous changes. Pleura:No pleural effusion. Upper Abdomen:Unremarkable Bones:Degenerative changes of the thoracic spine. Gynecomastia. CT/Low Dose CT Lung Screening IMPRESSION: Stable examination. Coronary artery calcification (CAC) is is present Lung-RADS Category: 2 BENIGN (BASED ON IMAGING FEATURES OR INDOLENT BEHAVIOR). RECOMMEND 12-MONTH SCREENING LDCT. Other Significant Findings: Reading Location: [facility]
== END | disposition home or self-care (01) ==
LOC: CT 13:22
PROVIDERS: PCP Internal Medicine; Referring Provider Nurse Practitioner Family; Visit Provider Nurse Practitioner Family
DX: Z12.2 Encounter for screening for malignant neoplasm of respiratory organs (principal); Z87.891 Personal history of nicotine dependence
CPT/HCPCS: 71271